=== PATIENT | female | born 1955 | race Caucasian/White ===

== ENCOUNTER → 2017-02-01 | Outpatient (CLI) | payer BC, OTHER ==
[~2017-02-01] MED LIST: INSASP10V; INSU100V6; LVT.15T; MTF500T PO; OMG1KC; POTA99TA13; PROG100C3
--- NOTE | 2017-02-07 13:38 | Diagnostic Imaging Report ---
Bilateral screening mammogram 2D views with tomosynthesis. The current study was also evaluated with a Computer Aided Detection (CAD) system. INDICATION: Screening. No current complaints stated on the questionnaire. COMPARISON: 01/04/16. FINDINGS: The breasts are composed of heterogeneously dense parenchyma which may decrease mammographic sensitivity. Allowing for technique and positional differences, no suspicious change is seen. IMPRESSION: Dense breasts with no definite change. ACR BI-RADS Category 2: Benign findings. Result letter will be mailed to the patient. Note: At least 10% of breast cancer is not imaged by mammography. Dictated by: Dictated on workstation # [id number]
== END ==
LOC: RAD 15:17
PROVIDERS: ATTEND Nurse Practitioner Family
DX: Z12.31 Encounter for screening mammogram for malignant neoplasm of breast (principal)
CPT/HCPCS: 77067

== ENCOUNTER 2017-12-28 16:43 | Inpatient (IN) | payer OTHER ==
[~2017-12-28] VITALS: Ht 170.2 cm; Wt 88.1 kg
--- OUTSIDE RECORDS SUMMARY | 2017-12-28 16:49 | XMS REPORT | Continuity of Care Document ---
Author Author [facility] Address Unknown Phone Unavailable Allergies Active Description Code Type Severity Reaction Onset Reported/Identified Relationship to Patient Clinical Status Yes SULFA SULFA Unknown N/A 03/17/2011 Medications There is no data. Problems Date Dx Coded Attending Type Code Diagnosis Diagnosed By 03/17/2011 Ot 251.0 03/17/2011 Ot 251.2 03/17/2011 Ot V58.67 09/04/2012 JOSE HARRIS MD 244.9 HYPOTHYROIDISM 09/04/2012 JOSE HARRIS MD 250.02 DIABETES MELLITUS TYPE 2 - UNCOMPLICATED, UNCONTROLLED 09/04/2012 JOSE HARRIS MD 796.2 Blood Pressure Isolated Elevated 09/04/2012 JOSE HARRIS MD V07.4 taking female hormones for postmenopausal HRT 09/04/2012 244.9 HYPOTHYROIDISM 09/04/2012 250.02 DIABETES MELLITUS TYPE 2 - UNCOMPLICATED, UNCONTROLLED 09/04/2012 796.2 Blood Pressure Isolated Elevated 09/04/2012 V07.4 taking female hormones for postmenopausal HRT 09/04/2012 ATTILA HAGEN MD 244.9 HYPOTHYROIDISM 09/04/2012 ATTILA HAGEN MD 250.02 DIABETES MELLITUS TYPE 2 - UNCOMPLICATED, UNCONTROLLED 09/04/2012 ATTILA HAGEN MD 796.2 Blood Pressure Isolated Elevated 09/04/2012 ATTILA HAGEN MD V07.4 taking female hormones for postmenopausal HRT 12/17/2012 401.1 ESSENTIAL HYPERTENSION BENIGN 12/17/2012 ATTILA HAGEN MD 401.1 ESSENTIAL HYPERTENSION BENIGN 01/15/2013 ATTILA HAGEN MD 682.2 SKIN ABSCESS OF THE TRUNK - GROIN 12/29/2014 Ot 793.80 01/13/2015 COSENS DO LAMINE L Ot V76.12 01/19/2015 COSENS DO LAMINE L Ot V76.12 01/04/2016 COSENS DO LAMINE L Ot V76.12 OTH SCREEN MAMMO-MALIGN NEOPLASM OF SAMAN 01/05/2016 HUSEYIN JOSEPH Ot Z12.31 ENCNTR SCREEN MAMMOGRAM FOR MALIGNANT NE 01/20/2016 HUSEYIN JOSEPH Ot Z12.31 ENCNTR SCREEN MAMMOGRAM FOR MALIGNANT NE 01/29/2017 LAMINE DENG DO Ot V76.12 OTH SCREEN MAMMO-MALIGN NEOPLASM OF SAMAN 01/29/2017 HUSEYIN JOSEPH Ot Z12.31 ENCNTR SCREEN MAMMOGRAM FOR MALIGNANT NE 02/07/2017 NARDA MUKHERJEE [employer] Ot Z12.31 ENCNTR SCREEN MAMMOGRAM FOR MALIGNANT NE 02/12/2017 NARDA MUKHERJEE [employer] FITTER Ot Z12.31 ENCNTR SCREEN MAMMOGRAM FOR MALIGNANT NE Procedures Code Description [place] [address] A1C (IN-HOUSE) 01/15/2013 48904 CULTURE MRSA 01/17/2013 Results There is no data. Encounters ACCT No. Visit Date/Time Discharge Status Pt. Type Provider Facility Loc./Unit Complaint [id number] 01/15/2013 16:13:00 01/15/2013 23:59:59 CLS Outpatient ATTILA HAGEN MD [id number] 09/04/2012 16:16:00 09/04/2012 23:59:59 CLS Outpatient JOSE HARRIS MD [id number] 12/17/2012 16:11:00 Document Registration [id number] 02/01/2017 15:17:00 02/01/2017 23:59:59 CLS Outpatient NARDA MUKHERJEE APRN [facility] RAD SCREENING [id number] 01/04/2016 13:21:00 01/04/2016 23:59:59 CLS Outpatient HUSEYIN JOSEPH [facility] RAD SCREENING [id number] 12/29/2014 15:09:00 12/29/2014 23:59:59 CLS Outpatient LAMINE DENG DO [facility] RAD SCREENING [id number] 04/03/2011 14:59:00 Document Registration [id number] 03/17/2011 16:46:00 Document Registration
--- NOTE | 2017-12-28 17:13 | ED General ---
General Chief Complaint: General Problems/Pain Stated Complaint: DEHYDRATION Source of Information: Patient Exam Limitations: No Limitations History of Present Illness Date Seen by Provider: Dec 28, 2017 Time Seen by Provider: 17:11 Initial Comments To ER per private vehicle with concerns of dehydration. She has a diabetic with insulin pump. She was feeling fine until about 3 days ago and that she had a sensation of general malaise and weakness, about her. She is a patient of Dr. Deng at [facility] urgent care and Hugh HUNTER nurse practitioner at [facility]. Her blood sugar yesterday was in the 750 range, today just before arrival here was 501 and she turned her insulin pump off because she states "I didn't have my wits about me". Timing/Duration: 2-3 Days Severity: Moderate Associated Systoms: Headaches, Malaise, Nausea/Vomiting Allergies and Home Medications Allergies Uncoded Allergies: SULFA (Adverse Reaction, 03/17/11) Home Medications Metformin Hcl 500 Mg Tablet, 2 PO DAILY, (Reported) Patient Home Medication List Home Medication List Reviewed: Yes Review of Systems Constitutional: see HPI EENTM: see HPI Respiratory: no symptoms reported Cardiovascular: see HPI, chest pain (she has had chest pain but none currently) Genitourinary: no symptoms reported Musculoskeletal: no symptoms reported Skin: no symptoms reported Past Renjnhd-Ivysdj-Pmdakf Hx Patient Social History Recent Foreign Travel: No Contact w/Someone Who Travel: No Physical Exam Vital Signs Vital Signs - First Documented 12/28/17 16:50 Temp 97.8 Pulse 94 Resp 20 B/P (MAP) 125/57 (79) Pulse Ox 97 Capillary Refill : General Appearance: No Apparent Distress, WD/WN Eyes: Bilateral Eye Normal Inspection, Bilateral Eye PERRL, Bilateral Eye EOMI HEENT: PERRL/EOMI, TMs Normal Neck: Full Range of Motion, Normal Inspection Respiratory: Normal Breath Sounds, No Accessory Muscle Use, No Respiratory Distress Cardiovascular: Regular Rate, Rhythm, Normal Peripheral Pulses Gastrointestinal: Normal Bowel Sounds, Non Tender, Soft Extremity: Normal Capillary Refill, Normal Inspection Neurologic/Psychiatric: Alert, Oriented x3 Skin: Normal Color, Warm/Dry Progress/Results/Core Measures Suspected Sepsis SIRS Temperature: Pulse: Respiratory Rate: Laboratory Tests 12/28/17 17:05: White Blood Count 8.4 Blood Pressure / Mean: Laboratory Tests 12/28/17 17:05: Creatinine 2.11H, Platelet Count 330, Total Bilirubin 0.4 Results/Orders Lab Results Laboratory Tests Test 12/28/17 17:00 12/28/17 17:05 12/28/17 17:27 Range/Units Urine Color YELLOW Urine Clarity SLIGHTLY CLOUDY Urine pH 5 5-9 Urine Specific [place] 1.015 L 1.016-1.022 Urine Protein NEGATIVE NEGATIVE Urine Glucose (UA) 4+ H NEGATIVE Urine Ketones 4+ H NEGATIVE Urine Nitrite NEGATIVE NEGATIVE Urine Bilirubin NEGATIVE NEGATIVE Urine Urobilinogen NORMAL NORMAL MG/DL Urine Leukocyte Esterase 3+ H NEGATIVE Urine RBC (Auto) NEGATIVE NEGATIVE Urine RBC NONE /HPF Urine WBC 25-50 H /HPF Urine Squamous Epithelial Cells 10-25 H /HPF Urine Crystals NONE /LPF Urine Bacteria FEW H /HPF Urine Casts NONE /LPF Urine Mucus NEGATIVE /LPF Urine Culture Indicated YES White Blood Count 8.4 4.3-11.0 10^3/uL Red Blood Count 3.69 L 4.35-5.85 10^6/uL Hemoglobin 11.2 L 11.5-16.0 G/DL Hematocrit 33 L 35-52 % Mean Corpuscular Volume 89 80-99 FL Mean Corpuscular Hemoglobin 30 25-34 PG Mean Corpuscular Hemoglobin Concent 34 32-36 G/DL Red Cell Distribution Width 12.3 10.0-14.5 % Platelet Count 330 130-400 10^3/uL Mean Platelet Volume 10.0 7.4-10.4 FL Neutrophils (%) (Auto) 83 H 42-75 % Lymphocytes (%) (Auto) 12 12-44 % Monocytes (%) (Auto) 4 0-12 % Eosinophils (%) (Auto) 0 0-10 % Basophils (%) (Auto) 1 0-10 % Neutrophils # (Auto) 7.0 1.8-7.8 X 10^3 Lymphocytes # (Auto) 1.0 1.0-4.0 X 10^3 Monocytes # (Auto) 0.3 0.0-1.0 X 10^3 Eosinophils # (Auto) 0.0 0.0-0.3 10^3/uL Basophils # (Auto) 0.0 0.0-0.1 10^3/uL Sodium Level 132 L 135-145 MMOL/L Potassium Level 5.4 H 3.6-5.0 MMOL/L Chloride Level 96 L 98-107 MMOL/L Carbon Dioxide Level 12 L 21-32 MMOL/L Anion Gap 24 H 5-14 MMOL/L Blood Urea Nitrogen 38 H 7-18 MG/DL Creatinine 2.11 H 0.60-1.30 MG/DL Estimat Glomerular Filtration Rate 24 BUN/Creatinine Ratio 18 Glucose Level 770 *H 70-105 MG/DL Calcium Level 9.8 8.5-10.1 MG/DL Total Bilirubin 0.4 0.1-1.0 MG/DL Aspartate Amino Transf (AST/SGOT) 17 5-34 U/L Alanine Aminotransferase (ALT/SGPT) 28 0-55 U/L Alkaline Phosphatase 121 40-136 U/L Troponin I < 0.30 <0.30 NG/ML Total Protein 7.0 6.4-8.2 GM/DL Albumin 4.3 3.2-4.5 GM/DL Glucometer > 600 *H 70-110 MG/DL My Orders Orders - SABRINA MORALEZ APRN Cbc With Automated Diff (12/28/17 17:09) Comprehensive Metabolic Panel (12/28/17 17:09) Ua Culture If Indicated (12/28/17 17:09) Iv Heplock-Insert (Order) (12/28/17 17:09) Accucheck Stat ONCE (12/28/17 17:09) Chest Pa/Lat (2 View) (12/28/17 17:09) Ns Iv 1000 Ml (Sodium Chloride 0.9%) (12/28/17 17:15) Insulin (Regular) Human (Humulin R (Per (12/28/17 17:15) Ekg Tracing (12/28/17 17:13) Troponin I (12/28/17 17:13) Urine Culture (12/28/17 17:00) Ceftriaxone Injection (Rocephin Injectio (12/28/17 17:30) Medications Given in ED Current Medications Medications Dose Ordered Sig/Markus Route Start Time Stop Time Status Last Admin Dose Admin Ceftriaxone Sodium 1000 mg/ Sodium Chloride 50 ml @ 100 mls/hr ONCE ONCE IV 12/28/17 17:30 18 17:59 DC 12/28/17 17:30 100 MLS/HR Insulin Human Regular 10 unit ONCE ONCE IV 12/28/17 17:15 6/15/18 17:16 DC 12/28/17 17:30 10 UNIT Vital Signs/I&O 12/28/17 16:50 Temp 97.8 Pulse 94 Resp 20 B/P (MAP) 125/57 (79) Pulse Ox 97 Capillary Refill : Diagnostic Imaging Diagonstic Imaging: Xray Comments NAME: SAIGE [facility]AKAR [facility] REC#: [id number] PT STATUS: REG ER : 1955 PHYSICIAN: SABRINA MORALEZ APRN ADMIT DATE: 12/28/17/ER Draft Date of Exam:12/28/17 CHEST PA/LAT (2 VIEW) INDICATION: Malaise and illness. EXAMINATION: PA and lateral views of the chest were obtained. FINDINGS: Heart size and pulmonary vascularity are within normal limits. There is no pneumothorax or consolidation. Tiny nodular density in the right midlung may be due to prominent vessel or granuloma. There is no evidence of infiltrate, pneumothorax or pleural fluid. Metallic linear densities project over the left shoulder and may reside within a clavicle. IMPRESSION: No acute abnormality is identified. Possible metallic foreign body is seen in region of the left clavicle. Dictated on workstation # [id number] Dict: 12/28/17 175 Trans: 12/28/171756 [facility] [id number] Interpreted by: SHARON CARRASCO MD Electronically signed by: Departure Communication (Admissions) Time/Spoke to Admitting Phy: 18:[address] Fam, agrees to admit. We'll place in the ICU on DKA protocol. I did clarify with the patient in regards to whether or not she sees Hugh HUNTER at the walk-in clinic or at scheduled visits. She states that she sees him during scheduled clinic visits. As such, we'll proceed with admission to [facility]. Impression Primary Impression: DKA (diabetic ketoacidoses) Additional Impression: Urinary tract infection Disposition: ADMITTED INPATIENT Condition: Stable Admissions Decision to Admit Reason: Admit from ER (General) Decision to Admit/Date: Dec 28, 2017 Time/Decision to Admit Time: 17:59 Departure-Patient Inst. Referrals: LAMINE DENG DO (PCP/Family) Primary Care Physician SABRINA MORALEZ APRN Dec 28, 2017 17:13
[2017-12-28 17:15] LABS: BILIRUBIN,URINE NEGATIVE (NEGATIVE); CLARITY,URINE SLIGHTLY CLOUDY; COLOR,URINE YELLOW; GLUCOSE, URINE (UA) 4+ (NEGATIVE); KETONES,URINE 4+ (NEGATIVE); LEUKOCYTE ESTERASE ,URINE 3+ (NEGATIVE); NITRITE,URINE NEGATIVE (NEGATIVE); PH,URINE 5 (5-9); PROTEIN,URINE NEGATIVE (NEGATIVE); UROBILINOGEN,URINE NORMAL (NORMAL)
[2017-12-28] MEDS ORDERED: inSUlin (REGULAR) HUMAN 1 UNIT/0.01 ML (CHARGE PER UNIT) IV ONE (17:15)
[2017-12-28] MEDS ORDERED: NS IV 1000 ML 1,000 ML IV SCH (17:15)
[2017-12-28 17:16] LABS: BASOPHILS % (AUTO) 1 % (0-10); EOSINOPHILS % (AUTO) 0 % (0-10); HEMATOCRIT 33 % (35-52); HEMOGLOBIN 11.2 G/DL (11.5-16.0); LYMPHOCYTES % (AUTO) 12 % (12-44); MEAN CORPUSCULAR HEMOGLOBIN 30 PG (25-34); MEAN CORPUSCULAR HGB CONC 34 G/DL (32-36); MEAN CORPUSCULAR VOLUME 89 FL (80-99); MONOCYTES # (AUTO) 0.3 X 10^3 (0.0-1.0); MONOCYTES % (AUTO) 4 % (0-12); NEUTROPHILS % (AUTO) 83 % (42-75); PLATELET COUNT 330 10^3/uL (130-400); RED BLOOD COUNT 3.69 10^6/uL (4.35-5.85); RED CELL DISTRIBUTION WIDTH 12.3 % (10.0-14.5); WHITE BLOOD COUNT 8.4 10^3/uL (4.3-11.0)
[2017-12-28 17:26] LABS: BACTERIA,URINE FEW /HPF; WBC,URINE 25-50 /HPF
[2017-12-28] MEDS ORDERED: cefTRIAXone INJECTION 1,000 MG in NS (IVPB) 50 ML IV ONE (17:30)
[2017-12-28 17:36] LABS: ALBUMIN 4.3 GM/DL (3.2-4.5); BILIRUBIN,TOTAL 0.4 MG/DL (0.1-1.0); CALCIUM 9.8 MG/DL (8.5-10.1); CREATININE SERUM 2.11 MG/DL (0.60-1.30); POTASSIUM 5.4 MMOL/L (3.6-5.0)
--- NOTE | 2017-12-28 17:57 | Diagnostic Imaging Report ---
INDICATION: Malaise and illness. EXAMINATION: PA and lateral views of the chest were obtained. FINDINGS: Heart size and pulmonary vascularity are within normal limits. There is no pneumothorax or consolidation. Tiny nodular density in the right midlung may be due to prominent vessel or granuloma. There is no evidence of infiltrate, pneumothorax or pleural fluid. Metallic linear densities project over the left shoulder and may reside within a clavicle. IMPRESSION: No acute abnormality is identified. Possible metallic foreign body is seen in region of the left clavicle. Dictated by: Dictated on workstation # [id number]
[2017-12-28] MEDS: inSUlin REGULAR TPN/DRIP ONLY 250 UNITS in NORMAL SALINE 250 ML IV SCH ×3 (19:08→20:06)
[2017-12-28] MEDS: D5 1/2 NS IV 1,000 ML IV SCH (19:12)
[2017-12-28 19:15] VITALS: BP 114/64
[2017-12-28] MEDS ORDERED: ONDANSETRON 4 MG/2 ML (SDV) Z0FRAN IV PRN (19:15)
[2017-12-28] MEDS ORDERED: CATHETER FLUSH 10 ML SYR IV PRN (19:15)
[2017-12-28] MEDS ORDERED: REGULAR inSUlin DRIP 250 UNITS/NS 250 ML IV SCH ×2 (19:15)
[2017-12-28] MEDS ORDERED: LOSA1TAB20 PO (19:37)
[2017-12-28] MEDS ORDERED: MELO15TA39 PO (19:37)
[2017-12-28] MEDS ORDERED: BENZ-36 PO (19:37)
[2017-12-28] MEDS ORDERED: NITR100C PO (19:37)
[2017-12-28] MEDS ORDERED: GABA-486 PO (19:37)
[2017-12-28] MEDS ORDERED: ATOR40TA70 PO (19:37)
[2017-12-28] MEDS ORDERED: DOXY100C2 PO (19:37)
[2017-12-28] MEDS ORDERED: METF10002 PO (19:37)
[2017-12-28] MEDS ORDERED: BUPR300T51 PO (19:37)
[2017-12-28] MEDS ORDERED: LEVO150T6 PO (19:37)
[2017-12-28] MEDS ORDERED: INSU100V16 SQ (19:37)
[2017-12-28] MEDS ORDERED: BUDE10.2 IH (19:37)
[2017-12-28] MEDS ORDERED: ZOLP5TAB7 PO (19:37)
[2017-12-28 19:44] LABS: CALCIUM 9.3 MG/DL (8.5-10.1); CREATININE SERUM 2.01 MG/DL (0.60-1.30); POTASSIUM 6.2 MMOL/L (3.6-5.0)
[2017-12-28] MEDS: DEXTROSE 10% IV SOLUTION 1,000 ML IV SCH (20:04)
[2017-12-28] MEDS: D5 1/2 NS W/KCL 20 MEQ/L 1,000 ML IV SCH ×2 (20:04→23:09)
[2017-12-28] MEDS: 1/2 NS W/KCL 20 MEQ/L 1,000 ML IV SCH ×2 (20:04→23:44)
[2017-12-28] MEDS: 1/2 NS IV SOLUTION 1,000 ML IV SCH ×2 (20:04→23:08)
[2017-12-28 21:00] VITALS: BP 116/59
[2017-12-28 21:19] LABS: CALCIUM 8.7 MG/DL (8.5-10.1); CREATININE SERUM 2.05 MG/DL (0.60-1.30); POTASSIUM 4.7 MMOL/L (3.6-5.0)
[2017-12-28 22:00] VITALS: BP 96/53
[2017-12-28 23:00] VITALS: BP 108/57
[2017-12-29] VITALS (18 sets, daily range): BP systolic 98–140; BP diastolic 46–94
[2017-12-29 01:29] LABS: BASOPHILS % (AUTO) 0 % (0-10); EOSINOPHILS % (AUTO) 0 % (0-10); HEMATOCRIT 28 % (35-52); HEMOGLOBIN 9.6 G/DL (11.5-16.0); LYMPHOCYTES % (AUTO) 23 % (12-44); MEAN CORPUSCULAR HEMOGLOBIN 30 PG (25-34); MEAN CORPUSCULAR HGB CONC 34 G/DL (32-36); MEAN CORPUSCULAR VOLUME 88 FL (80-99); MEAN PLATELET VOLUME 9.1 FL (7.4-10.4); MONOCYTES # (AUTO) 0.7 X 10^3 (0.0-1.0); MONOCYTES % (AUTO) 8 % (0-12); NEUTROPHILS # (AUTO) 5.9 X 10^3 (1.8-7.8); NEUTROPHILS % (AUTO) 69 % (42-75); PLATELET COUNT 285 10^3/uL (130-400); RED BLOOD COUNT 3.16 10^6/uL (4.35-5.85); RED CELL DISTRIBUTION WIDTH 12.1 % (10.0-14.5); WHITE BLOOD COUNT 8.6 10^3/uL (4.3-11.0)
[2017-12-29 01:47] LABS: CALCIUM 8.5 MG/DL (8.5-10.1); CREATININE SERUM 1.95 MG/DL (0.60-1.30); MAGNESIUM 2.2 MG/DL (1.8-2.4); PHOSPHORUS 2.9 MG/DL (2.3-4.7); POTASSIUM 4.5 MMOL/L (3.6-5.0)
[2017-12-29] MEDS: 1/2 NS W/KCL 20 MEQ/L 1,000 ML IV SCH (03:43)
[2017-12-29] MEDS: 1/2 NS IV SOLUTION 1,000 ML IV SCH ×3 (03:44→11:51)
[2017-12-29] MEDS: D5 1/2 NS W/KCL 20 MEQ/L 1,000 ML IV SCH ×3 (03:44→11:51)
[2017-12-29] MEDS: D5 1/2 NS IV 1,000 ML IV SCH (04:53)
[2017-12-29] MEDS: DEXTROSE 10% IV SOLUTION 1,000 ML IV SCH ×2 (05:42→07:41)
[2017-12-29 07:28] LABS: CALCIUM 8.5 MG/DL (8.5-10.1); CREATININE SERUM 1.41 MG/DL (0.60-1.30); POTASSIUM 3.7 MMOL/L (3.6-5.0)
--- NOTE | 2017-12-29 08:11 | Diagnostic Imaging Report ---
Indication: Dyspnea, diabetic ketoacidosis. Discussion: Single portable upright view of the chest was obtained, comparison 12/28/2017. Atelectasis is noted within the lingula. No focal consolidation, pleural fluid, or pneumothorax. Stable normal heart size. Questionable metallic foreign body along the left clavicle is stable. Impression: 1. Stable chest. Dictated by: Dictated on workstation # [id number]
[2017-12-29] MEDS: cefTRIAXone 1 GM/NS 50 ML IVPB IV SCH ×2 (08:41)
[2017-12-29] MEDS ORDERED: INSULIN VIAL ASPART for PUMP 100 UNIT/ML VIAL SQ SCH ×2 (09:45)
[2017-12-29] MEDS ORDERED: BENZONATATE 100 MG (TESSALON) CAPSULE PO PRN (10:45)
[2017-12-29 11:30] LABS: CALCIUM 8.5 MG/DL (8.5-10.1); CREATININE SERUM 1.34 MG/DL (0.60-1.30); POTASSIUM 3.9 MMOL/L (3.6-5.0)
[2017-12-29] MEDS: LEVOTHYROXINE 125 MCG (LEVOTHROID) TABLET PO SCH (11:54)
[2017-12-29] MEDS: GABAPENTIN 100 MG (NEURONTIN) CAP PO SCH ×2 (11:54→20:43)
[2017-12-29] MEDS: ENOXAPARIN 40 MG/0.4 ML (LOVENOX) SYR SQ SCH (11:55)
--- NOTE | 2017-12-29 13:57 | History & Physicial (CHS) ---
HPI History of Present Illness: This is a 62 yo female patient who sees Petty Tan at [facility] for primary care as well as Dr. Lugo for [facility]. Pt has hx of DM - she reports she was diagnosed with DM Type 1 in 1997 at age 42. She has been on an insulin pump. She reports her last A1c was 9.6 last month. Patient previously was seeing Dr. Silvestre but was not able to coordinate her appointments due to work schedule. Pt reports she was seen at her work medical clinic last for cough and because her had been diagnosed with pneumonia. She denied fever but states she had blood test that showed pneumonia and she was started on an antibiotic (Doxycycline) and Symbicort. She reports her BS have been elevated and she states she was feeling out of it and she did not feel like she could work her pump so she stopped her insulin pump. She was seen at the ER and found to be in DKA w/ AG 24 on admission. Source: patient Exam Limitations: no limitations Date seen by provider: Dec 29, 2017 Time Seen by Provider: 08:50 Attending Physician Sukhdev Fam DO PCP Petty Tan, Weston Lal DO - [facility] Consult Date of Admission Dec 28, 2017 at 18:04 Home Medications Home Medications Reviewed patient Home Medication Reconciliation performed by pharmacy medication reconciliations neurodiagnostic technician and/or nursing. Patients Allergies have been reviewed. Allergies Uncoded Allergies: SULFA (Adverse Reaction, Unknown, 12/28/17) IYL-Fzlkuy-Agxlfh Hx Patient Social History Alcohol Use: Denies Use Recreational Drug Use: No Smoking Status: Never a Smoker 2nd Hand Smoke Exposure: No Recent Foreign Travel: No Contact w/other who traveled: No Recent Hopitalizations: No Recent Infectious Disease Expo: No Physical Abuse Screen: No Sexual Abuse: No Immunizations Up To Date Date of Pneumonia Vaccine: Aug 16, 2015 Past Medical History DM Type 1 Hypertension CKD Hyperlipidemia Diabetic Neuropathy Hypothyroidism Chronic UTI OA knees PSH: DEANN/BSO L knee scope umbilical hernia repair Family Medical History Family History: Degenerative disc disease G8 BROTHER, Onset:60 years & older FHx: rheumatoid arthritis G8 BROTHER, Onset:60 years & older Lymphedema 19 FATHER, , Age:88, Onset:60 years & older Review of Systems ([facility]) Constitutional: malaise, weakness Respiratory: cough Cardiovascular: no symptoms reported Gastrointestinal: abdominal pain Genitourinary: other (chronic UTI) Musculoskeletal: joint pain Reviewed Test Results Reviewed Test Results Lab Laboratory Tests 12/28/17 17:00: Urine Color YELLOW, Urine Clarity SLIGHTLY CLOUDY, Urine pH 5, Urine Specific [place] 1.015L, Urine Protein NEGATIVE, Urine Glucose (UA) 4+H, Urine Ketones 4+ H, Urine Nitrite NEGATIVE, Urine Bilirubin NEGATIVE, Urine Urobilinogen NORMAL, Urine Leukocyte Esterase 3+H, Urine RBC (Auto) NEGATIVE, Urine RBC NONE, Urine WBC 25-50H, Urine Squamous Epithelial Cells 10-25H, Urine Crystals NONE, Urine Bacteria FEWH, Urine Casts NONE, Urine Mucus NEGATIVE, Urine Culture Indicated YES 12/28/17 17:05: White Blood Count 8.4, Red Blood Count 3.69L, Hemoglobin 11.2L, Hematocrit 33L, Mean Corpuscular Volume 89, Mean Corpuscular Hemoglobin 30, Mean Corpuscular Hemoglobin Concent 34, Red Cell Distribution Width 12.3, Platelet Count 330, Mean Platelet Volume 10.0, Neutrophils (%) (Auto) 83H, Lymphocytes (%) (Auto) 12 , Monocytes (%) (Auto) 4, Eosinophils (%) (Auto) 0, Basophils (%) (Auto) 1, Neutrophils # (Auto) 7.0, Lymphocytes # (Auto) 1.0, Monocytes # (Auto) 0.3, Eosinophils # (Auto) 0.0, Basophils # (Auto) 0.0, Sodium Level 132L, Potassium Level 5.4H, Chloride Level 96L, Carbon Dioxide Level 12L, Anion Gap 24H, Blood Urea Nitrogen 38H, Creatinine 2.11H, Estimat Glomerular Filtration Rate 24, BUN/ Creatinine Ratio 18, Glucose Level 770*H, Calcium Level 9.8, Total Bilirubin 0.4 , Aspartate Amino Transf (AST/SGOT) 17, Alanine Aminotransferase (ALT/SGPT) 28, Alkaline Phosphatase 121, Troponin I < 0.30, Total Protein 7.0, Albumin 4.3 12/28/17 17:27: Glucometer > 600*H 12/28/17 18:40: Glucometer 583*H 12/28/17 19:01: Glucometer > 600*H 12/28/17 19:20: Sodium Level 132L, Potassium Level 6.2H, Chloride Level 100, Carbon Dioxide Level 7*L, Anion Gap 25H, Blood Urea Nitrogen 37H, Creatinine 2.01H, Estimat Glomerular Filtration Rate 25, BUN/Creatinine Ratio 18, Glucose Level 737*H, Calcium Level 9.3 12/28/17 20:55: Sodium Level 134L, Potassium Level 4.7, Chloride Level 103, Carbon Dioxide Level 7*L, Anion Gap 24H, Blood Urea Nitrogen 39H, Creatinine 2.05H, Estimat Glomerular Filtration Rate 25, BUN/Creatinine Ratio 19, Glucose Level 637*H, Calcium Level 8.7 12/28/17 21:05: Glucometer > 600*H 12/28/17 22:00: Glucometer 559*H 12/28/17 23:02: Glucometer 502*H 12/28/17 23:58: Glucometer 476*H 12/29/17 01:05: Glucometer 418*H 12/29/17 01:21: White Blood Count 8.6, Red Blood Count 3.16L, Hemoglobin 9.6L, Hematocrit 28L, Mean Corpuscular Volume 88, Mean Corpuscular Hemoglobin 30, Mean Corpuscular Hemoglobin Concent 34, Red Cell Distribution Width 12.1, Platelet Count 285, Mean Platelet Volume 9.1, Neutrophils (%) (Auto) 69, Lymphocytes (%) (Auto) 23, Monocytes (%) (Auto) 8, Eosinophils (%) (Auto) 0, Basophils (%) (Auto) 0, Neutrophils # (Auto) 5.9, Lymphocytes # (Auto) 2.0, Monocytes # (Auto) 0.7, Eosinophils # (Auto) 0.0, Basophils # (Auto) 0.0, Sodium Level 136, Potassium Level 4.5, Chloride Level 108H, Carbon Dioxide Level 14L, Anion Gap 14, Blood Urea Nitrogen 39H, Creatinine 1.95H, Estimat Glomerular Filtration Rate 26, BUN/ Creatinine Ratio 20, Glucose Level 379H, Calcium Level 8.5, Phosphorus Level 2.9 , Magnesium Level 2.2 12/29/17 02:01: Glucometer 374H 12/29/17 02:58: Glucometer 368H 12/29/17 04:04: Glucometer 274H 12/29/17 04:50: Glucometer 244H 12/29/17 06:09: Glucometer 175H 12/29/17 06:53: Glucometer 140H 12/29/17 07:05: Sodium Level 139, Potassium Level 3.7, Chloride Level 112H, Carbon Dioxide Level 17L, Anion Gap 10, Blood Urea Nitrogen 33H, Creatinine 1.41H, Estimat Glomerular Filtration Rate 38, BUN/Creatinine Ratio 23, Glucose Level 120H, Calcium Level 8.5 12/29/17 07:32: Glucometer 110 12/29/17 08:16: Glucometer 100 12/29/17 08:47: Glucometer 90 12/29/17 09:11: Glucometer 110 12/29/17 10:05: Glucometer 158H 12/29/17 11:00: Sodium Level 138, Potassium Level 3.9, Chloride Level 108H, Carbon Dioxide Level 18L, Anion Gap 12, Blood Urea Nitrogen 31H, Creatinine 1.34H, Estimat Glomerular Filtration Rate 40, BUN/Creatinine Ratio 23, Glucose Level 177H, Calcium Level 8.5 12/29/17 11:28: Glucometer 162H 12/29/17 11:58: Glucometer 153H Physical Exam-(CHC) Physical Exam Vital Signs VS - Last 72 Hours, by Label 12/28/17 12/28/17 12/28/17 12/28/17 16:50 18:42 19:00 19:15 Temp 97.8 97.8 99.5 Pulse 94 94 93 95 Resp 20 20 16 B/P (MAP) 125/57 (79) 125/57 (79) 114/64 (81) Pulse Ox 97 97 100 O2 Delivery Nasal Cannula O2 Flow Rate 3.00 12/28/17 12/28/17 12/28/17 12/28/17 20:33 21:00 21:50 22:00 Pulse 93 94 Resp 20 25 B/P (MAP) 116/59 (78) 96/53 (67) Pulse Ox 100 99 O2 Delivery Nasal Cannula Nasal Cannula Nasal Cannula Nasal Cannula O2 Flow Rate 3.00 3.00 2.00 3.00 12/28/17 12/28/17 12/29/17 12/29/17 23:00 23:55 00:00 01:00 Temp 99.2 Pulse 94 82 Resp 17 B/P (MAP) 108/57 (74) Pulse Ox 97 96 96 O2 Delivery Nasal Cannula Room Air Room Air O2 Flow Rate 3.00 6/16/18 6/16/18 6/16/18 6/16/18 01:00 02:00 03:00 04:00 Pulse 84 81 85 84 Resp 15 14 16 10 B/P (MAP) 98/46 (63) 118/55 (76) 131/62 (85) 108/58 (75) Pulse Ox 99 96 98 97 O2 Delivery Nasal Cannula Nasal Cannula Nasal Cannula Nasal Cannula O2 Flow Rate 2.00 2.00 2.00 2.00 12/29/17 12/29/17 12/29/17 12/29/17 04:05 04:10 05:00 06:00 Temp 100.2 Pulse 80 77 Resp 16 15 B/P (MAP) 122/59 (80) 127/62 (83) Pulse Ox 97 99 99 O2 Delivery Nasal Cannula Nasal Cannula Nasal Cannula O2 Flow Rate 2.00 2.00 2.00 12/29/17 12/29/17 12/29/17 12/29/17 06:00 07:00 07:00 08:00 Pulse 77 75 75 Resp 15 40 B/P (MAP) 127/62 (83) 115/65 (82) Pulse Ox 99 99 100 O2 Delivery Nasal Cannula Nasal Cannula Nasal Cannula O2 Flow Rate 2.00 2.00 2.00 12/29/17 12/29/17 12/29/17 12/29/17 08:00 08:00 09:00 10:00 Temp 98.5 Pulse 71 78 75 Resp 19 15 11 B/P (MAP) 123/65 (84) 123/75 (91) 122/88 (99) Pulse Ox 99 99 99 O2 Delivery Nasal Cannula Nasal Cannula Nasal Cannula O2 Flow Rate 2.00 2.00 2.00 12/29/17 12/29/17 12/29/17 12/29/17 11:00 11:59 12:00 12:00 Temp 98.0 Pulse 67 75 Resp 14 10 B/P (MAP) 118/59 (78) 121/81 (94) Pulse Ox 99 98 96 O2 Delivery Room Air Room Air Room Air O2 Flow Rate Capillary Refill : Less Than 3 Seconds General Appearance: WD/WN, no apparent distress, other (mild ketone odor to breath) HEENT: PERRL/EOMI Respiratory: lungs clear, normal breath sounds Cardiovascular: regular rate, rhythm, no edema Gastrointestinal: non tender, soft Extremities: non-tender, normal inspection Neurologic/Psychiatric: alert, normal mood/affect, oriented x 3 Skin: normal color, warm/dry Assessment/Plan Assessment/Plan Admission Dx 1. DKA 2. DM Type 1, uncontrolled 3. UTI 4. YOUNG secondary to dehydration Admission Status: Inpatient Order (span 2 midnights) Reason for Inpatient Admission: ICU admission for DKA requiring IV insulin drip Assessment & Plan 1. DKA - admitted to ICU for IV insulin drip (drip currently off due to low BS) - BS now normalized and AG closed - pt will have bring insulin pump and will restart sq insulin via pump then DC insulin drip 2. DM Type 1, uncontrolled - per clinic record pump settings as of 18: 12am 1.35 U/hr 7am 1.25 U/hr I:C is 1:10 active insulin time 4 hours sensitivity factor 60 BS goal 115-130 3. UTI - pt reports hx of chronic UTI for which she has been on Macrobid - urine culture pending; currently treated w/ Rocephin 4. YOUNG secondary to dehydration w/ CKD - Cr on admission 2.11 -->1.41; continue to monitor 5. cough - treated for pneumonia as OP w/ Doxycyline and Symbicort - no evidence of pneumonia on CXR Resume home medications for: HTN Hypothyroidism Diabetic Neuropathy Plan: Transfer to floor after restarting insulin pump and BS remain stable. Clinical Quality Measures DVT/VTE Risk/Contraindication: Risk Factor Score Per Nursin RFS Level Per Nursing on Admit: 3=High Risk Score Comment: SUKHDEV Varghese DO Dec 29, 2017 13:57
[2017-12-29] MEDS ORDERED: ZOLPIDEM 5 MG (AMBIEN) TAB PO SCH (21:00)
[2017-12-29] MEDS ORDERED: ATORVASTATIN 40 MG (LIPITOR) TABLET PO SCH (21:00)
[2017-12-30 00:27] VITALS: BP 126/58
[2017-12-30 04:00] VITALS: BP 172/75
[2017-12-30 04:49] LABS: BASOPHILS % (AUTO) 0 % (0-10); EOSINOPHILS # (AUTO) 0.1 10^3/uL (0.0-0.3); EOSINOPHILS % (AUTO) 2 % (0-10); HEMATOCRIT 31 % (35-52); HEMOGLOBIN 10.6 G/DL (11.5-16.0); LYMPHOCYTES # (AUTO) 2.2 X 10^3 (1.0-4.0); LYMPHOCYTES % (AUTO) 30 % (12-44); MEAN CORPUSCULAR HEMOGLOBIN 30 PG (25-34); MEAN CORPUSCULAR HGB CONC 34 G/DL (32-36); MEAN CORPUSCULAR VOLUME 87 FL (80-99); MEAN PLATELET VOLUME 9.6 FL (7.4-10.4); MONOCYTES # (AUTO) 0.6 X 10^3 (0.0-1.0); MONOCYTES % (AUTO) 9 % (0-12); NEUTROPHILS # (AUTO) 4.2 X 10^3 (1.8-7.8); NEUTROPHILS % (AUTO) 59 % (42-75); PLATELET COUNT 278 10^3/uL (130-400); RED BLOOD COUNT 3.59 10^6/uL (4.35-5.85); WHITE BLOOD COUNT 7.2 10^3/uL (4.3-11.0)
[2017-12-30] MEDS: LEVOTHYROXINE 125 MCG (LEVOTHROID) TABLET PO SCH (05:03)
[2017-12-30 05:16] LABS: BUN/CREATININE RATIO 24; CALCIUM 8.8 MG/DL (8.5-10.1); CARBON DIOXIDE 21 MMOL/L (21-32); CHLORIDE 115 MMOL/L (98-107); CREATININE SERUM 0.88 MG/DL (0.60-1.30); GFR ESTIMATED > 60; GLUCOSE 100 MG/DL (70-105); MAGNESIUM 2.1 MG/DL (1.8-2.4); PHOSPHORUS 3.2 MG/DL (2.3-4.7); POTASSIUM 3.7 MMOL/L (3.6-5.0); SODIUM 144 MMOL/L (135-145)
[2017-12-30] MEDS ORDERED: LEVOTHYROXINE 150 MCG (LEVOTHROID) TAB PO SCH (06:00)
[2017-12-30 08:00] VITALS: BP 160/79
[2017-12-30] MEDS: cefTRIAXone 1 GM/NS 50 ML IVPB IV SCH ×2 (08:49)
[2017-12-30] MEDS: GABAPENTIN 100 MG (NEURONTIN) CAP PO SCH (08:50)
[2017-12-30] MEDS: ENOXAPARIN 40 MG/0.4 ML (LOVENOX) SYR SQ SCH (08:50)
[2017-12-30] MEDS ORDERED: NON-FORMULARY MEDICATION 1 EA EA (Bupropion HCl (Bupropion Xl) 300 MG) PO SCH (09:00)
[2017-12-30] MEDS ORDERED: HYDROCHLOROTHIAZIDE 12.5 MG (HCTZ) CAP PO SCH (09:00)
[2017-12-30] MEDS ORDERED: LOSARTAN 50 MG (COZAAR) TAB PO SCH (09:00)
[2017-12-30] MEDS ORDERED: buPROPion SR 150 MG (WELLBUTRIN SR) TAB PO SCH (09:00)
[2017-12-30] MEDS ORDERED: ACETAMINOPHEN 325 MG TABLET/CAPLET (TYLENOL) ONE (10:07)
[2017-12-30] MEDS ORDERED: ACETAMINOPHEN 325 MG TABLET/CAPLET (TYLENOL) PO ONE (10:15)
[2017-12-30] MEDS ORDERED: INSU100V16 SQ (10:48)
--- NOTE | 2017-12-30 10:53 | Discharge Instructions ---
Discharge [facility] Discharge Medications Changed Medications: Insulin Aspart (Novolog) 100 Unit/1 Ml Susp 0 SQ UD, #1 EACH (Changed from: Removed Units; PER INSULIN PUMP) INSULIN PUMP SETTINGS: 12am 1.35 U/h 7am 1.25 U/h I:C 1:10 Active insulin time - 4hr sensitivity factor 60 BS goal 115-130 Continued Medications: Atorvastatin Calcium (Atorvastatin Calcium) 40 Mg Tablet 40 MG PO HS, TAB Benzonatate (Benzonatate) 100 Mg Capsule 100-200 MG PO Q8H, CAP Bupropion HCl (Bupropion Xl) 300 Mg Tab.er.24h 300 MG PO DAILY, TAB Gabapentin (Gabapentin) 100 Mg Capsule 100 MG PO TID, CAP Levothyroxine Sodium (Levothyroxine Sodium) 150 Mcg Tablet 250 MCG PO DAILY@0600, TAB Losartan/Hydrochlorothiazide (Losartan-Hctz 50-12.5 mg Tab) 1 Each Tablet 1 EACH PO DAILY, TAB Meloxicam (Meloxicam) 15 Mg Tablet 15 MG PO DAILY, TAB Zolpidem Tartrate (Zolpidem Tartrate) 5 Mg Tablet 5 MG PO HS, TAB Discontinued Medications: Budesonide/Formoterol Fumarate (Symbicort 160-4.5 Mcg Inhaler) 10.2 Gm Hfa.aer.ad 2 PUFF IH BID, INHALER Doxycycline Hyclate (Doxycycline Hyclate) 100 Mg Capsule 100 MG PO BID, CAP filled on 12/27/2017 #20 Metformin HCl (Metformin HCl) 1,000 Mg Tablet 2000 MG PO DAILY, TAB Nitrofurantoin Macrocrystal (Nitrofurantoin) 100 Mg Capsule 100 MG PO DAILY, CAP Patient Instructions Goal/Follow Up Appt: [facility] will call to schedule consult w/ Dr. Thacker for DM. Patient Instructions: Hold Metformin until f/u appointment. Continue same pump settings. Activity & Diet Discharge Diet: ADA SUKHDEV Bustamante DO Dec 30, 2017 10:53
--- NOTE | 2017-12-30 11:00 | Discharge Summary ---
Diagnosis/Chief Complaint Date of Admission Dec 28, 2017 at 18:04 Date of Discharge December 30, 2017 Admission Diagnosis Admission Diagnosis 1. DKA 2. DM Type 1, uncontrolled 3. UTI 4. YOUNG secondary to dehydration Discharge Diagnosis 1. DKA - admitted to ICU for IV insulin drip (drip currently off due to low BS) - BS now normalized and AG closed - pt will have bring insulin pump and will restart sq insulin via pump then DC insulin drip 12/30/17 -RESOLVED; resume on sq insulin pump at usual setting. 2. DM Type 1, uncontrolled - per clinic record pump settings as of 10/22/17: 12am 1.35 U/hr 7am 1.25 U/hr I:C is 1:10 active insulin time 4 hours sensitivity factor 60 BS goal 115-130 12/30/17 - BS well controlled on usual pump setting - will schedule consult w/ Dr. Phan for DM as OP - recommend holding Metformin until f/u appointment 3. UTI - pt reports hx of chronic UTI for which she has been on Macrobid - urine culture pending; currently treated w/ Rocephin 12/30/17 - urine culture still pending - tx'd w/ Rocephin, no further treatment necessary 4. YOUNG secondary to dehydration w/ CKD - Cr on admission 2.11 -->1.41; continue to monitor 12/30/17 - RESOLVED 5. cough - treated for pneumonia as OP w/ Doxycyline and Symbicort - no evidence of pneumonia on CXR Resume home medications for: HTN Hypothyroidism Diabetic Neuropathy Plan: DC home Will schedule OP consult w/ Dr. Phan. Chief Complaint/HPI Chief Complaint/HPI This is a 62 yo female patient who sees Petty Tan at [facility] for primary care as well as Dr. Lugo for [facility]. Pt has hx of DM - she reports she was diagnosed with DM Type 1 in 1997 at age 42. She has been on an insulin pump. She reports her last A1c was 9.6 last month. Patient previously was seeing Dr. Silvestre but was not able to coordinate her appointments due to work schedule. Pt reports she was seen at her work medical clinic last for cough and because her had been diagnosed with pneumonia. She denied fever but states she had blood test that showed pneumonia and she was started on an antibiotic (Doxycycline) and Symbicort. She reports her BS have been elevated and she states she was feeling out of it and she did not feel like she could work her pump so she stopped her insulin pump. She was seen at the ER and found to be in DKA w/ AG 24 on admission. Discharge Summary-Simple/Stand Consultations Discharge Physical Examination Allergies: Uncoded Allergies: SULFA (Adverse Reaction, Unknown, 12/28/17) Vitals & I&Os Vital Sign - Last 12Hours Date Time Temp Pulse Resp B/P (MAP) Pulse Ox O2 Delivery O2 Flow Rate FiO2 12/30/17 10:43 98.7 12/30/17 08:00 81 20 160/79 (106) 96 Room Air 12/29/17 12:00 Intake and Output 12/30/17 00:00 Intake Total 2612 ml Output Total 0 ml Balance 2612 ml Hospital Course See final discharge diagnosis. Discharge Instructions to patient/family Please see electronic discharge instructions given to patient. Patient Instructions Goal/Follow Up Appt: [facility] will call to schedule consult w/ Dr. Phan for DM. Patient Instructions: Hold Metformin until f/u appointment. Continue same pump settings. Activity & Diet Discharge Diet: ADA Diet Discharge Medications Reviewed and agree with Discharge Medication list on patient's Discharge Instruction sheet Discharge Medications Continued Medications: Insulin Aspart (Novolog) 100 Unit/1 Ml Susp 0 SQ UD, #1 EACH (Changed from: Removed Units; PER INSULIN PUMP) INSULIN PUMP SETTINGS: 12am 1.35 U/h 7am 1.25 U/h I:C 1:10 Active insulin time - 4hr sensitivity factor 60 BS goal 115-130 Atorvastatin Calcium (Atorvastatin Calcium) 40 Mg Tablet 40 MG PO HS, TAB Benzonatate (Benzonatate) 100 Mg Capsule 100-200 MG PO Q8H, CAP Bupropion HCl (Bupropion Xl) 300 Mg Tab.er.24h 300 MG PO DAILY, TAB Gabapentin (Gabapentin) 100 Mg Capsule 100 MG PO TID, CAP Levothyroxine Sodium (Levothyroxine Sodium) 150 Mcg Tablet 250 MCG PO DAILY@0600, TAB Losartan/Hydrochlorothiazide (Losartan-Hctz 50-12.5 mg Tab) 1 Each Tablet 1 EACH PO DAILY, TAB Meloxicam (Meloxicam) 15 Mg Tablet 15 MG PO DAILY, TAB Zolpidem Tartrate (Zolpidem Tartrate) 5 Mg Tablet 5 MG PO HS, TAB Discontinued Medications: Budesonide/Formoterol Fumarate (Symbicort 160-4.5 Mcg Inhaler) 10.2 Gm Hfa.aer.ad 2 PUFF IH BID, INHALER Doxycycline Hyclate (Doxycycline Hyclate) 100 Mg Capsule 100 MG PO BID, CAP filled on 12/27/2017 #20 Nitrofurantoin Macrocrystal (Nitrofurantoin) 100 Mg Capsule 100 MG PO DAILY, CAP Held Medications: Metformin HCl (Metformin HCl) 1,000 Mg Tablet 2000 MG PO DAILY, TAB hold until f/u appointment Clinical Quality Measures DVT/VTE Risk/Contraindication: Risk Factor Score Per Nursin RFS Level Per Nursing on Admit: 3=High Risk Score Comment: Eric ordered Copy Copies To 1: JUNE PHAN MD, LINDA K DO Dec 30, 2017 11:00
[2017-12-30 11:47] VITALS: BP 160/79
== END 2017-12-30 11:47 | disposition home or self-care (01) | DRG 638 ==
LOC: EDUNIT# 16:43 → ER 16:45 → ICU 18:04 → 4TH 12-29 15:45
PROVIDERS: ADMIT Family Medicine; ATTEND Family Medicine
DX: E10.10 Type 1 diabetes mellitus with ketoacidosis without coma (principal); N17.9 Acute kidney failure, unspecified; E86.0 Dehydration; N39.0 Urinary tract infection, site not specified; E10.40 Type 1 diabetes mellitus with diabetic neuropathy, unspecified; E10.22 Type 1 diabetes mellitus with diabetic chronic kidney disease; I12.9 Hypertensive chronic kidney disease with stage 1 through stage 4 chronic kidney disease, or unspecified chronic kidney disease; N18.9 Chronic kidney disease, unspecified; E78.5 Hyperlipidemia, unspecified; M17.0 Bilateral primary osteoarthritis of knee; R05 Cough; Z79.4 Long term (current) use of insulin
CPT/HCPCS: 36415; 71045; 71046; 80048; 80053; 81000; 82962; 83036; 83735; 84100; 84484; 85025; 87081; 87088; 93005; 96361; 96365; 96375

== ENCOUNTER → 2018-02-18 | Outpatient (CLI) | payer OTHER ==
[~2018-02-18] MED LIST changes: +ATOR40TA70 PO; +BENZ-36 PO; +BUDE10.2 IH; +BUPR300T51 PO; +DOXY100C2 PO; +GABA-486 PO; +INSU100V16 SQ; +LEVO150T6 PO; +LOSA1TAB20 PO; +MELO15TA39 PO; +METF10002 PO; +NITR100C PO; +ZOLP5TAB7 PO
--- NOTE | 2018-02-19 12:08 | Diagnostic Imaging Report ---
INDICATION: Routine screening. Comparison is made with prior exam from 02/03/2017 01/04/2016. 2-D and 3-D bilateral screening mammography was performed with a Computer Aided Detection (CAD) system. FINDINGS: Both breasts are heterogeneously dense, limiting the sensitivity of mammography. No mass or malignant appearing microcalcifications are seen. The axillae are unremarkable. IMPRESSION: No mammographic features suspicious for malignancy are identified. ACR BI-RADS Category 1: Negative. Result letter will be mailed to the patient. Note: At least 10% of breast cancer is not imaged by mammography. Dictated by: Dictated on workstation # [id number]
== END ==
LOC: RAD 13:56
PROVIDERS: ATTEND Nurse Practitioner Family
DX: Z12.31 Encounter for screening mammogram for malignant neoplasm of breast (principal)
CPT/HCPCS: 77067

== ENCOUNTER 2018-09-18 06:27 | Emergency (ER) | payer OTHER ==
[~2018-09-18] VITALS: Ht 170.2 cm; Wt 88.0 kg
[~2018-09-18 06:27] MED LIST changes: +METF-399 PO; -METF10002 PO
[2018-09-18] MEDS ORDERED: NS IV 1000 ML 1,000 ML IV ONE (06:33)
[2018-09-18 07:33] LABS: BASOPHILS % (AUTO) 0 % (0-10); EOSINOPHILS % (AUTO) 0 % (0-10); HEMATOCRIT 35 % (35-52); HEMOGLOBIN 11.3 G/DL (11.5-16.0); LYMPHOCYTES # (AUTO) 1.1 X 10^3 (1.0-4.0); LYMPHOCYTES % (AUTO) 12 % (12-44); MEAN CORPUSCULAR HEMOGLOBIN 29 PG (25-34); MEAN CORPUSCULAR HGB CONC 32 G/DL (32-36); MEAN CORPUSCULAR VOLUME 91 FL (80-99); MEAN PLATELET VOLUME 9.4 FL (7.4-10.4); MONOCYTES # (AUTO) 0.9 X 10^3 (0.0-1.0); MONOCYTES % (AUTO) 10 % (0-12); NEUTROPHILS # (AUTO) 7.2 X 10^3 (1.8-7.8); NEUTROPHILS % (AUTO) 79 % (42-75); PLATELET COUNT 234 10^3/uL (130-400); RED CELL DISTRIBUTION WIDTH 13.6 % (10.0-14.5); WHITE BLOOD COUNT 9.2 10^3/uL (4.3-11.0)
[2018-09-18 07:37] LABS: BILIRUBIN,URINE NEGATIVE (NEGATIVE); COLOR,URINE YELLOW; GLUCOSE, URINE (UA) 3+ (NEGATIVE); KETONES,URINE 1+ (NEGATIVE); LEUKOCYTE ESTERASE ,URINE 3+ (NEGATIVE); NITRITE,URINE NEGATIVE (NEGATIVE); PH,URINE 6 (5-9); PROTEIN,URINE 2+ (NEGATIVE); UROBILINOGEN,URINE NORMAL (NORMAL)
--- NOTE | 2018-09-18 07:43 | ED General ---
General Chief Complaint: Glucose Problems Stated Complaint: DIABETES PROBLEMS,KETO ACIDOSIS Nursing Triage Note: PT TO ROOM 9 CO OF FSBS BEING ELEVATED, PT HAS INSULIN PUMP. DENIES N,V OR DIARRHEA Nursing Sepsis Screen: No Definite Risk Source of Information: Patient, Family Exam Limitations: No Limitations History of Present Illness Date Seen by Provider: Sep 18, 2018 Time Seen by Provider: 07:15 Initial Comments Here with report of ketones in her urine. Patient is diabetic and is on insulin pump basal rate of 1.2. She has noted that she's had elevated blood sugars over the last day or 2 and relates that to family issues and she is having to take care of other people and has neglected herself some. Her significant other has pneumonia currently. Patient denies fever, vomiting, dysuria or diarrhea but was noted to have mild fever on arrival today. Denies cough or sore throat. Timing/Duration: 1-3 Hours Severity: Moderate Associated Systoms: No Chest Pain, No Cough; Fever/Chills; No Nausea/Vomiting, No Shortness of Air, No Weakness Allergies and Home Medications Allergies Uncoded Allergies: SULFA (Adverse Reaction, Unknown, 12/28/17) Home Medications Atorvastatin Calcium 40 Mg Tablet, 40 MG PO HS, (Reported) Benzonatate 100 Mg Capsule, 100-200 MG PO Q8H, (Reported) Bupropion HCl 300 Mg Tab.er.24h, 300 MG PO DAILY, (Reported) Gabapentin 100 Mg Capsule, 100 MG PO TID, (Reported) Insulin Aspart 100 Unit/1 Ml Susp, 0 SQ UD INSULIN PUMP SETTINGS: 12am 1.35 U/h 7am 1.25 U/h I:C 1:10 Active insulin time - 4hr sensitivity factor 60 BS goal 115-130 Prescribed by: SUKHDEV SIN on 12/30/17 1048 Levothyroxine Sodium 150 Mcg Tablet, 250 MCG PO DAILY@0600, (Reported) Losartan/Hydrochlorothiazide 1 Each Tablet, 1 EACH PO DAILY, (Reported) Meloxicam 15 Mg Tablet, 15 MG PO DAILY, (Reported) Zolpidem Tartrate 5 Mg Tablet, 5 MG PO HS, (Reported) Patient Home Medication List Home Medication List Reviewed: Yes Review of Systems Review of Systems Constitutional: see HPI; No chills; fever; No weakness EENTM: no symptoms reported Respiratory: No cough, No short of breath Cardiovascular: no symptoms reported Gastrointestinal: No abdominal pain, No nausea, No vomiting Genitourinary: No dysuria, No pain Musculoskeletal: no symptoms reported Skin: no symptoms reported All Other Systems Reviewed Negative Unless Noted: Yes Past Qtvznok-Imnxap-Tzddwm Hx Past Med/Social Hx: Reviewed Nursing Past Med/Soc Hx Patient Social History Alcohol Use: Denies Use Recreational Drug Use: No Smoking Status: Former Smoker 2nd Hand Smoke Exposure: No Recent Foreign Travel: No Contact w/Someone Who Travel: No Recent Infectious Disease Expo: No Recent Hopitalizations: No Immunizations Up To Date PED Vaccines UTD: No Date of Pneumonia Vaccine: Aug 16, 2015 Seasonal Allergies Seasonal Allergies: No Past Medical History Surgeries: Yes Hysterectomy Respiratory: No Currently Using CPAP: No Currently Using BIPAP: No Cardiac: No Neurological: No Female Reproductive Disorders: 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 Sexually Transmitted Disease: No HIV/AIDS: No Genitourinary: No Gastrointestinal: No Musculoskeletal: No Endocrine: Yes Diabetes, Insulin dep, Hypothyroidsim HEENT: No Loss of Vision: Denies Hearing Impairment: Denies Cancer: No Psychosocial: No Integumentary: No Blood Disorders: No Adverse Reaction/Blood Tranf: No Family Medical History Reviewed Nursing Family Hx Degenerative disc disease G8 BROTHER, Onset:60 years & older FHx: rheumatoid arthritis G8 BROTHER, Onset:60 years & older Lymphedema 19 FATHER, , Age:88, Onset:60 years & older Physical Exam Vital Signs Vital Signs - First Documented 09/18/18 07:10 Temp 100.4 Pulse 88 Resp 18 B/P (MAP) 143/83 (103) Pulse Ox 97 Capillary Refill : Less Than 3 Seconds Height, Weight, BMI Height: 5'7.00" Weight: 194lbs. 4.8oz. [id number]; 29.8 BMI Method:Stated General Appearance: No Apparent Distress, WD/WN HEENT: PERRL/EOMI, TMs Normal, Pharynx Normal Neck: Non Tender, Supple Respiratory: Lungs Clear, Normal Breath Sounds Cardiovascular: Regular Rate, Rhythm, No Murmur Gastrointestinal: Non Tender, Soft Back: Normal Inspection, No CVA Tenderness, No Vertebral Tenderness Extremity: Normal Range of Motion, Non Tender Neurologic/Psychiatric: Alert, Oriented x3 Skin: Normal Color, Warm/Dry Progress/Results/Core Measures Suspected Sepsis Recent Fever Within 48 Hours: No Infection Criteria Present: None New/Unexplained Altered Menta: No Sepsis Screen: No Definite Risk SIRS Temperature:100.4 Pulse: 88 Respiratory Rate: 18 Laboratory Tests 09/18/18 07:25: White Blood Count 9.2 Blood Pressure 143 /83 Mean: 103 Laboratory Tests 09/18/18 07:25: Creatinine 1.06, Platelet Count 234, Total Bilirubin 0.5 Results/Orders Lab Results Laboratory Tests Test 09/18/18 07:22 09/18/18 07:25 09/18/18 07:27 Range/Units Glucometer 251 H 70-110 MG/DL White Blood Count 9.2 4.3-11.0 10^3/uL Red Blood Count 3.89 L 4.35-5.85 10^6/uL Hemoglobin 11.3 L 11.5-16.0 G/DL Hematocrit 35 35-52 % Mean Corpuscular Volume 91 80-99 FL Mean Corpuscular Hemoglobin 29 25-34 PG Mean Corpuscular Hemoglobin Concent 32 32-36 G/DL Red Cell Distribution Width 13.6 10.0-14.5 % Platelet Count 234 130-400 10^3/uL Mean Platelet Volume 9.4 7.4-10.4 FL Neutrophils (%) (Auto) 79 H 42-75 % Lymphocytes (%) (Auto) 12 12-44 % Monocytes (%) (Auto) 10 0-12 % Eosinophils (%) (Auto) 0 0-10 % Basophils (%) (Auto) 0 0-10 % Neutrophils # (Auto) 7.2 1.8-7.8 X 10^3 Lymphocytes # (Auto) 1.1 1.0-4.0 X 10^3 Monocytes # (Auto) 0.9 0.0-1.0 X 10^3 Eosinophils # (Auto) 0.0 0.0-0.3 10^3/uL Basophils # (Auto) 0.0 0.0-0.1 10^3/uL Sodium Level 134 L 135-145 MMOL/L Potassium Level 4.3 3.6-5.0 MMOL/L Chloride Level 103 98-107 MMOL/L Carbon Dioxide Level 23 21-32 MMOL/L Anion Gap 8 5-14 MMOL/L Blood Urea Nitrogen 15 7-18 MG/DL Creatinine 1.06 0.60-1.30 MG/DL Estimat Glomerular Filtration Rate 53 BUN/Creatinine Ratio 14 Glucose Level 251 H 70-105 MG/DL Calcium Level 9.7 8.5-10.1 MG/DL Corrected Calcium 9.7 8.5-10.1 MG/DL Phosphorus Level 3.2 2.3-4.7 MG/DL Magnesium Level 1.6 L 1.8-2.4 MG/DL Total Bilirubin 0.5 0.1-1.0 MG/DL Aspartate Amino Transf (AST/SGOT) 16 5-34 U/L Alanine Aminotransferase (ALT/SGPT) 21 0-55 U/L Alkaline Phosphatase 109 40-136 U/L Total Protein 6.6 6.4-8.2 GM/DL Albumin 4.0 3.2-4.5 GM/DL Urine Color YELLOW Urine Clarity CLOUDY Urine pH 6 5-9 Urine Specific [place] 1.010 L 1.016-1.022 Urine Protein 2+ H NEGATIVE Urine Glucose (UA) 3+ H NEGATIVE Urine Ketones 1+ H NEGATIVE Urine Nitrite NEGATIVE NEGATIVE Urine Bilirubin NEGATIVE NEGATIVE Urine Urobilinogen NORMAL NORMAL MG/DL Urine Leukocyte Esterase 3+ H NEGATIVE Urine RBC (Auto) 2+ H NEGATIVE Urine RBC 5-10 H /HPF Urine WBC 50-100 H /HPF Urine Squamous Epithelial Cells 10-25 H /HPF Urine Crystals NONE /LPF Urine Bacteria FEW H /HPF Urine Casts NONE /LPF Urine Mucus SMALL H /LPF Urine Yeast FEW H /HPF Urine Culture Indicated YES Micro Results Microbiology 09/18/18 Influenza Types A,B Antigen (HANNA) - Final, Complete My Orders Orders - ROSEY VU MD Cbc With Automated Diff (09/18/18 06:33) Comprehensive Metabolic Panel (09/18/18 06:33) Magnesium (09/18/18 06:33) Ua Culture If Indicated (09/18/18 06:33) Phosphorus (09/18/18 06:33) Saline Lock/Iv-Start (09/18/18 06:33) Ns Iv 1000 Ml (Sodium Chloride 0.9%) (09/18/18 06:33) Accucheck Stat ONCE (09/18/18 06:33) Influenza A And B Antigens (09/18/18 07:15) Urine Culture (09/18/18 07:27) Ceftriaxone For Iv Use (Rocephin For I (09/18/18 08:30) Fluconazole Tablet (Ed Only) (Diflucan T (09/18/18 08:18) Ns Iv 1000 Ml (Sodium Chloride 0.9%) (09/18/18 08:18) Medications Given in ED Current Medications Medications Dose Ordered Sig/Markus Route Start Time Stop Time Status Last Admin Dose Admin Ceftriaxone Sodium 1000 mg/ Sterile Water 10 ml @ 200 mls/hr ONCE ONCE IV 09/18/18 08:30 09/18/18 08:32 DC 09/18/18 08:35 200 MLS/HR Sodium Chloride 1,000 ml @ 0 mls/hr Q0M ONCE IV 09/18/18 06:33 09/18/18 06:36 DC 09/18/18 07:29 1,000 MLS/HR Vital Signs/I&O 09/18/18 07:10 Temp 100.4 Pulse 88 Resp 18 B/P (MAP) 143/83 (103) Pulse Ox 97 Capillary Refill : Less Than 3 Seconds Blood Pressure Mean: 103 Point of Care Testing Finger Stick Blood Glucose: 251 Blood Glucose Action Taken: REPORTED TO DR Nolan Note : Progress Note Seen and evaluated. IV, labs, UA, normal saline 1 L bolus ordered. Fingerstick blood sugar ordered. Blood sugar noted to be 251. We will check influenza screen. Monitor patient. Repeat normal saline 1 L bolus. Rocephin 1 g IV given due to complexity of her situation with her diabetes and because urinary tract infection was found. Also noted yeast infection. Diflucan 150 mg by mouth given. Monitor patient. 1000: Patient doing much better. We will continue outpatient treatment of her urinary tract infection. Patient will do insulin corrections on her pump. Follow-up with her doctor instructed. Discharged home with return precautions. Patient verbalize understanding instructions and agreement with plan. Departure Impression Primary Impression: Hyperglycemia Additional Impressions: Urinary tract infection Qualified Codes: N30.00 - Acute cystitis without hematuria Yeast vaginitis Disposition: HOME, SELF-CARE Condition: Improved Departure-Patient Inst. Decision time for Depature: 10:06 Referrals: LAMINE DENG DO (PCP/Family) Primary Care Physician Patient Instructions: Diabetes Type 1, Adult (DC) Add. Discharge Instructions: All discharge instructions reviewed with patient and/or family. Voiced understanding. Is very important that you continue to monitor your sugars and make insulin corrections as prescribed. Drink plenty of fluids. You need to get some rest. You do have a urinary tract infection and we will treat that with antibiotics as discussed. He also had a yeast infection. We did give you a one-time dose of Diflucan which should help but you can sometimes have continuation of yeast infection. If this happens, you may use the [id number] Monistat cream to complete the treatment. Follow-up with your Dr. in a few days for recheck. Return for worse pain, fever, vomiting, weakness, breathing problems or other concerns as needed. Scripts Cephalexin (Cephalexin) 500 Mg Tablet 500 MG PO BID, #12 TAB 0 Refills Prov: ROSEY VU MD 09/18/18 ROSEY VU MD Sep 18, 2018 07:43
[2018-09-18 07:58] LABS: BILIRUBIN,TOTAL 0.5 MG/DL (0.1-1.0); CALCIUM 9.7 MG/DL (8.5-10.1); CREATININE SERUM 1.06 MG/DL (0.60-1.30); MAGNESIUM 1.6 MG/DL (1.8-2.4); PHOSPHORUS 3.2 MG/DL (2.3-4.7); POTASSIUM 4.3 MMOL/L (3.6-5.0); TOTAL PROTEIN 6.6 GM/DL (6.4-8.2)
[2018-09-18 08:01] LABS: BACTERIA,URINE FEW /HPF; CLARITY,URINE CLOUDY; WBC,URINE 50-100 /HPF
[2018-09-18 08:02] LABS: YEAST,URINE FEW /HPF
[2018-09-18] MEDS ORDERED: FLUCONAZOLE 150 MG TABLET (ED ONLY) PO STA (08:18)
[2018-09-18] MEDS ORDERED: NS IV 1000 ML 1,000 ML IV STA (08:18)
[2018-09-18] MEDS ORDERED: cefTRIAXone FOR IV USE 1,000 MG in WATER (STERILE) FOR INJECTION 10 ML IV ONE (08:30)
[2018-09-18] MEDS ORDERED: CEPH500T PO (10:09)
[2018-09-18 10:16] VITALS: BP 140/66
== END 2018-09-18 10:16 | disposition home or self-care (01) ==
LOC: EDUNIT# 06:27 → ER 06:29
DX: E11.65 Type 2 diabetes mellitus with hyperglycemia (principal); N39.0 Urinary tract infection, site not specified; B37.3 Candidiasis of vulva and vagina; E03.9 Hypothyroidism, unspecified; Z88.2 Allergy status to sulfonamides; Z79.4 Long term (current) use of insulin; Z87.891 Personal history of nicotine dependence; Z90.710 Acquired absence of both cervix and uterus
CPT/HCPCS: 36415; 80053; 81000; 82962; 83735; 84100; 85025; 87088; 87804

== ENCOUNTER 2018-10-01 05:54 | Outpatient (CLI) | payer OTHER ==
[~2018-10-01] VITALS: Ht 170.2 cm; Wt 88.0 kg
[~2018-10-01 05:54] MED LIST changes: +CEPH500T PO
[2018-10-02] MEDS ORDERED: METF-399 PO (08:56)
[2018-10-02] MEDS ORDERED: iron PO (08:56)
[2018-10-02] MEDS ORDERED: GABA-490 PO (08:56)
[2018-10-02] MEDS ORDERED: CYAN25006 SL (08:56)
[2018-10-02] MEDS ORDERED: SPIR25TA5 PO (08:56)
[2018-10-02] MEDS ORDERED: INSU100V SQ (08:56)
[2018-10-02] MEDS ORDERED: MAGN500C15 PO (08:56)
== END 2018-10-01 16:00 | disposition home or self-care (01) ==
LOC: PREOP 05:54
PROVIDERS: ATTEND Surgery
DX: Z01.818 Encounter for other preprocedural examination (principal)

== ENCOUNTER 2018-10-08 09:31 | Day surgery (SDC) | payer OTHER ==
[~2018-10-08] VITALS: Ht 170.2 cm; Wt 88.0 kg
[~2018-10-08 09:31] MED LIST changes: +CYAN25006 SL; +GABA-490 PO; +INSU100V SQ; +MAGN500C15 PO; +SPIR25TA5 PO; +iron PO
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
--- OUTSIDE RECORDS SUMMARY | 2018-10-08 09:36 | XMS REPORT ---
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.4 Active 715804758 ALLERGIES No Information ENCOUNTERS Encounter Location Date Diagnosis [place] [address] 359[address]- 9812 Jul, [place] [address] 84591- 0252 May, Type 2 diabetes mellitus without complications E11.9 and Neuropathy due to secondary diabetes E13.40 [place] [address] [place] [id number] [place] [address] 61043- 9412 May, [place] [id number] [place] [address] 03677- 0712 Apr, Type 2 diabetes mellitus without complications E11.9 ; Localized edema R60.0 and Neuropathy due to secondary diabetes E13.40 [place] [address] [place] [id number] [place] [address] 66832- 7567 Apr, Other chronic pain G89.29 ; Pain in left knee M25.562 and Pain in right knee M25.561 [facility] [id number] [place] [address] 87106- 4207 Jan, [place] [address] 08029- 3300 Jan, [place] [address], [place] [address]- 9725 Dec, [facility] [id number] [place] [address] 56835- 2211 Dec, Other chronic pain G89.29 ; Pain in left knee M25.562 ; Pain in right knee M25.561 and Bilateral leg edema R60.0 [place] [id number] [place] [address] 24439- 5952 Dec, Type 2 diabetes mellitus without complications E11.9 [place] [id number], [place] [address]- 0025 Dec, [place] [id number] [place] [address] 36587- 0682 Dec, Type 2 diabetes mellitus without complications E11.9 ; skilled nursing 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.4 ; Other chronic pain G89.29 and Prophylactic antibiotic Z79.2 [place] [address], [place] [address]- 4561 November, Type 2 diabetes mellitus without complications E11.9 ; emt intermediate 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.4 ; Pain in left knee M25.562 and Pain in right knee M25.561 [place] [address], [place] [address]- 0101 November, [place] [address] [address]- 6880 November, [facility] [address], [place] [address]- 8437 Oct, [place] [address] [address]- 1728 Oct, [place] [address] [address]- 3769 Oct, Type 2 diabetes mellitus without complications E11.9 [place] [address] [address]- 2995 Sep, [facility] [address] 1093 Aug, Other chronic pain G89.29 ; Pain in left knee M25.562 and Pain in right knee M25.561 [facility] [address] [address]- 2226 Aug, [facility] [id number] 8676 Aug, [facility] [address], [place] [address]- 9317 Aug, Type 2 diabetes mellitus without complications E11.9 ; skilled nursing 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.4 ; Other chronic pain G89.29 ; Pain in left knee M25.562 and Pain in right knee M25.561 [facility] [address], [place] [address]- 8922 Dec, [facility] [address], [place] [address]- 2107 Oct, [facility] [address] [address]- 0762 Oct, [facility] [address], [place] [address]- 2873 November, [facility] [address], [place] [address]- 6280 November, [facility] [address], [place] [address]- 8948 November, [facility] [address] 0609 November, [facility] [address] 5426 November, [facility] [address] 5225 Aug, [facility] [place] [facility] [address] [id number] [place] [address]- 6121 Aug, [facility] [place] [facility] [address] [id number] [place] [address]- 1795 Aug, [facility] [place] [facility] [address] [id number] [place] [address]- 9815 Aug, [facility] [place] [facility] [address] [id number] [place] [address]- 9469 Jul, [facility] [place] [facility] [address] [id number] [place] [address]- 6309 Jul, [facility] [place] [facility] [address] [id number] [place] [address]- 5221 Jun, [facility] [place] [facility] [address] [id number] [place] [address]- 5284 Jun, [facility] [place] [facility] [address] [id number] [place] [address]- 0811 Apr, [facility] [place] [facility] [address] [id number] [place] [address]- 1024 Apr, [facility] [place] [facility] [address] [id number] [place] [address]- 7374 Mar, [facility] [place] [facility] [address] [id number] [place] [address]- 5997 Mar, [facility] [place] [facility] [address] [id number] [place] [address]- 4512 Mar, [facility] [place] [facility] [address] [id number] [place] [address]- 2668 Feb, [facility] [place] [facility] [address] [id number] [place] [address]- 1332 Feb, [facility] [place] [facility] [address] [id number] [place] 1945 Jan, [facility] [place] [facility] [address] [id number], [place] [address]- 0580 Jan, [facility] [address], [place] [address]- 0326 Jan, [facility] [address], [place] [address]- 1874 Jan, [facility] [address], [place] [address]- 3479 Jan, [facility] [address], [place] [address]- 1741 Jan, [facility] [address], [place] [address]- 3808 Dec, [facility] [address], [place] [address]- 2791 Dec, [facility] [address], [place] [address]- 2832 Dec, [facility] [address], [place] [address]- 6324 Dec, [facility] [address], [place] [address]- 3218 Dec, [facility] [address], [place] [address]- 7657 Dec, [facility] [address] [address]- 7802 November, [facility] [address], [place] [address]- 0672 November, [facility] [address], [place] [address]- 5779 Sep, [facility] [address], [place] [address]- 5807 Aug, IMMUNIZATIONS No Known Immunizations SOCIAL HISTORY Never Assessed REASON FOR VISIT referral PLAN OF CARE VITAL SIGNS MEDICATIONS Unknown Medications RESULTS No Results PROCEDURES No Known procedures [...] on left knee 2012 Surgical History ketoacidosis 2018 Hospitalization History surgeries Hospitalization History diabetes 04/1998 Hospitalization History dehydration and ketoacidosis 12/2017
--- OUTSIDE RECORDS SUMMARY | 2018-10-08 09:36 | XMS REPORT ---
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 426777195 ALLERGIES No Information ENCOUNTERS Encounter Location Date Diagnosis [place] [id number] [place] [address] 83560- 5922 Jan, [place] [id number] [place] [address] 62835- 5034 Jan, [place] [id number] [place] [address] 58429- 3335 Dec, [place] [address] 22979- 9886 Dec, Other chronic pain G89.29 ; Pain in left knee M25.562 ; Pain in right knee M25.561 and Bilateral leg edema R60.0 [place] [id number] [place] [address] 84712- 5562 Dec, Type 2 diabetes mellitus without complications E11.9 [place] [id number] [place] [address] 32396- 6541 Dec, [place] [id number] [place] [address] 87318- 8190 Dec, Type 2 diabetes mellitus without complications E11.9 ; 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 ; Other chronic pain G89.29 and Prophylactic antibiotic Z79.2 [place] [address] [address]- 9604 November, Type 2 diabetes mellitus without complications E11.9 ; 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 ; Pain in left knee M25.562 and Pain in right knee M25.561 [facility] [address], [place] [address]- 9899 November, [facility] [id number] [place] [address] 70979- 0078 November, [facility] [id number] [address]- 8961 Oct, [facility] [id number] [place] [address] 42415- 9082 Oct, [facility] [address] [address]- 0092 Oct, Type 2 diabetes mellitus without complications E11.9 [facility] [address], [place] [address]- 1679 Sep, [facility] [address] [address]- 8963 Aug, Other chronic pain G89.29 ; Pain in left knee M25.562 and Pain in right knee M25.561 [facility] [address], [place] [address]- 3806 Aug, [facility] [address], [place] [address]- 9852 Aug, [facility] [id number] [address]- 8079 Aug, Type 2 diabetes mellitus without complications E11.9 ; 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 ; Other chronic pain G89.29 ; Pain in left knee M25.562 and Pain in right knee M25.561 [facility] [address] [address]- 2951 Dec, [facility] [address] [id number] [place] [address]- 0770 Oct, [facility] [place] [facility] [address] [id number] [place] [address]- 3246 Oct, [facility] [place] [facility] [address] [id number] [place] [address]- 0025 November, [facility] [place] [facility] [address] [id number] [place] [address]- 5426 November, [facility] [place] [facility] [address] [id number] [place] [address]- 0086 November, [facility] [place] [facility] [address] [id number] [place] [address]- 5881 November, [facility] [place] [facility] [address] [id number] [place] [address]- 3087 November, [facility] [place] [facility] [address] [id number] [place] [address]- 3509 Aug, [facility] [place] [facility] [address] [id number] [place] [address]- 5746 Aug, [facility] [place] [facility] [address] [id number] [place] [address]- 6483 Aug, [facility] [place] [facility] [address] [id number] [place] [address]- 4741 Aug, [facility] [place] [facility] [address] [id number] [place] [address]- 3362 Jul, [facility] [place] [facility] [address] [id number] [place] 7600 Jul, [facility] [place] [facility] [address] [id number] [place] [address]- 4959 Jun, [facility] [place] [facility] [address] [id number] [place] [address]- 8418 Jun, [facility] [place] [facility] [address] [id number] [place] [address]- 0181 Apr, [facility] [address] [id number] [place] [address]- 3618 29 Apr, 2013 [facility] [place] [facility] [address] [id number] [place] [address]- 3671 Mar, [facility] [place] [facility] [address] [id number] [place] [address]- 2108 27 Mar, 2013 [facility] [place] [facility] [address] [id number] [place] [address]- 5282 17 Mar, 2013 [facility] [place] [facility] [address] [id number] [place] [address] Feb, [facility] [place] [facility] [address] [id number] [place] [address] Feb, [facility] [address] [id number] [place] [address] Jan, [facility] [place] [facility] [address] [id number] [place] [address] Jan, [facility] [place] [facility] [address] [id number] [place] [address] Jan, [facility] [place] [facility] [address] [id number] [place] [address] Jan, [facility] [place] [facility] [address] [id number] [place] [address] Jan, [facility] [place] [facility] [address] [id number] [place] [address] Jan, [facility] [place] [facility] [address] [id number] [place] [address] Dec, [facility] [place] [facility] [address] [id number] [place] [address] Dec, [facility] [place] [facility] [address] [id number] [place] [address] Dec, [facility] [address] [id number] [address] Dec, [facility] [address] [id number] [address] Dec, [facility] [address] [id number] [address] Dec, [facility] [address] [id number], [place] [address] November, [facility] [id number] [address] November, [facility] [address] [id number] [address] Sep, [facility] [address] [id number], [place] [address] Aug, IMMUNIZATIONS No Known Immunizations SOCIAL HISTORY Never Assessed REASON FOR VISIT upload with no changes PLAN OF CARE VITAL SIGNS MEDICATIONS Unknown [...]
--- OUTSIDE RECORDS SUMMARY | 2018-10-08 09:36 | XMS REPORT ---
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 915234880 ALLERGIES No Information ENCOUNTERS Encounter Location Date Diagnosis [place] [id number] [place] [address] 75912- 0982 Jan, [place] [id number] [place] [address] 39072- 7581 Jan, [place] [id number] [place] [address] 38164- 9219 Dec, [place] [address] [address]- [address]484 Dec, Other chronic pain G89.29 ; Pain in left knee M25.562 ; Pain in right knee M25.561 and Bilateral leg edema R60.0 [place] [id number] [place] [address] 85401- 0837 Dec, Type 2 diabetes mellitus without complications E11.9 [place] [id number] [place] [address] 38288- 0286 Dec, [place] [id number] [place] [address] 55317- 3165 Dec, Type 2 diabetes mellitus without complications E11.9 ; 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 ; Other chronic pain G89.29 and Prophylactic antibiotic Z79.2 [place] [address] [address] November, Type 2 diabetes mellitus without complications E11.9 ; 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 ; Pain in left knee M25.562 and Pain in right knee M25.561 [facility] [address] [address] 5[address] November, [facility] [id number] [place] [address] 02283- 7970 November, [facility] [id number] [address]- 1287 Oct, [facility] [id number] [place] [address] 84066- 8681 Oct, [facility] [address] [address] 7819 Oct, Type 2 diabetes mellitus without complications E11.9 [facility] [address] [address] 2727 Sep, [facility] [address] [address] 9039 Aug, Other chronic pain G89.29 ; Pain in left knee M25.562 and Pain in right knee M25.561 [facility] [address] [address] 6006 Aug, [facility] [address] [address]- 4262 Aug, [facility] [id number] [address] 4817 Aug, Type 2 diabetes mellitus without complications E11.9 ; 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 ; Other chronic pain G89.29 ; Pain in left knee M25.562 and Pain in right knee M25.561 [facility] [address] [address] 1698 Dec, [facility] [address] [id number] [place] [address] 1846 Oct, [facility] [place] [facility] [address] [id number] [place] [address]- 1218 Oct, [facility] [place] [facility] [address] [id number] [place] [address]- 7652 November, [facility] [place] [facility] [address] [id number] [place] [address]- 3551 November, [facility] [place] [facility] [address] [id number] [place] [address]- 8926 November, [facility] [place] [facility] [address] [id number] [place] [address]- 6550 November, [facility] [place] [facility] [address] [id number] [place] [address]- 9504 November, [facility] [place] [facility] [address] [id number] [place] [address]- 0635 Aug, [facility] [place] [facility] [address] [id number] [place] [address]- 8300 Aug, [facility] [place] [facility] [address] [id number] [place] [address]- 9038 Aug, [facility] [place] [facility] [address] [id number] [place] [address]- 4699 Aug, [facility] [place] [facility] [address] [id number] [place] [address]- 6062 Jul, [facility] [place] [facility] [address] [id number] [place] [address] Jul, [facility] [place] [facility] [address] [id number] [place] [address]- 5103 Jun, [facility] [place] [facility] [address] [id number] [place] [address]- 5761 Jun, [facility] [place] [facility] [address] [id number] [place] [address]- 2648 Apr, [facility] [address] [id number] [place] [address]- 1392 29 Apr, 2013 [facility] [place] [facility] [address] [id number] [place] [address]- 5736 Mar, [facility] [place] [facility] [address] [id number] [place] [address]- 9199 27 Mar, 2013 [facility] [place] [facility] [address] [id number] [place] [address]- 2744 17 Mar, 2013 [facility] [place] [facility] [address] [id number] [place] [address]- 7203 Feb, [facility] [place] [facility] [address] [id number] [place] [address]- 6438 Feb, [facility] [address] [id number] [place] [address]- 4569 Jan, [facility] [place] [facility] [address] [id number] [place] [address]- 2667 Jan, [facility] [place] [facility] [address] [id number] [place] [address]- 7761 Jan, [facility] [place] [facility] [address] [id number] [place] [address]- 6267 Jan, [facility] [place] [facility] [address] [id number] [place] [address]- 6925 Jan, [facility] [place] [facility] [address] [id number] [place] [address]- 2336 Jan, [facility] [place] [facility] [address] [id number] [place] [address]- 2280 Dec, [facility] [place] [facility] [address] [id number] [place] [address]- 6782 Dec, [facility] [place] [facility] [address] [id number] [place] [address]- 6702 Dec, [facility] [id number] [address]- 0615 Dec, [facility] [id number] [address]- 8161 Dec, [facility] [id number] [address]- 6728 Dec, [facility] [id number] [address]- 6885 November, [facility] [address] [address]- 0525 November, [facility] [id number] [address]- 6289 Sep, [facility] [id number] [address]- 7760 Aug, IMMUNIZATIONS No Known Immunizations SOCIAL HISTORY Never Assessed REASON FOR VISIT [employer] upload info PLAN OF CARE VITAL SIGNS MEDICATIONS Unknown [...]
--- OUTSIDE RECORDS SUMMARY | 2018-10-08 09:36 | XMS REPORT ---
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 Active 6730043 Problem Type 2 diabetes mellitus without complications E11.9 Active 444780850 Problem Other chronic pain G89.29 Active 61838908 Problem [facility] 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.4 Active 479723398 ALLERGIES Substance Reaction Event Type Date Status Sulfa Drugs bottoms out blood sugar Non Drug Allergy Apr, Active ENCOUNTERS Encounter Location Date Diagnosis [place] [id number] [place] [address] 55085- 1763 May, [facility] [id number] [place] [address] 45468- 3548 Apr, Type 2 diabetes mellitus without complications E11.9 ; Localized edema R60.0 and Neuropathy due to secondary diabetes E13.40 [place] [id number] [place] [address] 26089- 6750 Apr, Other chronic pain G89.29 ; Pain in left knee M25.562 and Pain in right knee M25.561 [facility] [id number] [place] [address] 25493- 7858 Jan, [facility] [id number] [place] [address] 41737- 2253 Jan, [facility] [id number] [place] [address] 58680- 6029 Dec, [facility] [id number] [place] [address] 66151- 2505 Dec, Other chronic pain G89.29 ; Pain in left knee M25.562 ; Pain in right knee M25.561 and Bilateral leg edema R60.0 [facility] [id number] [place] [address] 94213- 1471 Dec, Type 2 diabetes mellitus without complications E11.9 [facility] [id number], [place] [address]- 7409 Dec, [facility] [id number] [place] [address] 67525- 0748 Dec, Type 2 diabetes mellitus without complications E11.9 ; 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 ; Other chronic pain G89.29 and Prophylactic antibiotic Z79.2 [facility] [id number] [place] [address] 71513- 0682 November, Type 2 diabetes mellitus without complications E11.9 ; 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 ; Pain in left knee M25.562 and Pain in right knee M25.561 [facility] [id number] [place] [address] 86927- 8562 November, [facility] [id number] [place] [address] 60784- 8714 November, [facility] [id number] [place] [address] 26712- 9717 Oct, [facility] [address], [place] [address]- 3443 Oct, [facility] [id number] [place] [address] 38189- 6003 Oct, Type 2 diabetes mellitus without complications E11.9 [facility] [id number] [address]- 6478 Sep, [facility] [address], [place] [address]- 3740 Aug, Other chronic pain G89.29 ; Pain in left knee M25.562 and Pain in right knee M25.561 [facility] [id number], [place] [address]- 4397 Aug, [facility] [id number] [place] [address]- 8126 Aug, [facility] [address], [place] [address]- 5103 Aug, Type 2 diabetes mellitus without complications E11.9 ; [facility] 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.4 ; Other chronic pain G89.29 ; Pain in left knee M25.562 and Pain in right knee M25.561 [facility] [id number] [place] [address] 67643- 4342 Dec, [facility] [id number] [address]- 4483 Oct, [facility] [id number] [place] [address] 33480- 6367 Oct, [facility] [address], [place] [address]- 5017 November, [facility] [address], [place] [address]- 2171 November, [facility] [address], [place] [address]- 7807 November, [facility] [address], [place] [address]- 6046 November, [facility] [address], [place] [address]- 8076 November, [facility] [address] 1878 Aug, [facility] [address] 5276 Aug, [facility] [address] 9767 Aug, [facility] [place] [facility] [address] [id number] [place] [address]- 8255 Aug, [facility] [place] [facility] [address] [id number] [place] [address]- 8717 Jul, [facility] [place] [facility] [address] [id number] [place] [address]- 2783 Jul, [facility] [place] [facility] [address] [id number] [place] [address]- 2156 Jun, [facility] [place] [facility] [address] [id number] [place] [address]- 2909 Jun, [facility] [place] [facility] [address] [id number] [place] [address]- 3438 Apr, [facility] [place] [facility] [address] [id number] [place] [address]- 9331 Apr, [facility] [place] [facility] [address] [id number] [place] [address]- 1443 Mar, [facility] [place] [facility] [address] [id number] [place] [address]- 7928 Mar, [facility] [place] [facility] [address] [id number] [place] [address]- 7716 Mar, [facility] [place] [facility] [address] [id number] [place] [address]- 6067 Feb, [facility] [place] [facility] [address] [id number], [place] [address]- 5736 Feb, [facility] [place] [facility] [address] [id number] [place] [address]- 4080 Jan, [facility] [place] [facility] [address] [id number], [place] [address]- 3223 Jan, [facility] [place] [facility] [address] [id number] [place] [address]- 8749 Jan, [facility] [place] [facility] [id number], [place] [address]- 6176 Jan, [facility] [id number], [place] [address]- 0638 Jan, [facility] [id number], [place] [address]- 6993 Jan, [facility] [address], [place] [address]- 6582 Dec, [facility] [address], [place] [address]- 4885 Dec, [facility] [address], [place] [address]- 7457 Dec, [facility] [address], [place] [address]- 2502 Dec, [facility] [address], [place] [address]- 2950 Dec, [facility] [address], [place] [address]- 6819 Dec, [facility] [id number], [place] [address]- 0341 November, [facility] [id number], [place] [address]- 2903 November, [facility] [id number], [place] [address]- 8537 Sep, [facility] [id number], [place] [address]- 1292 Aug, IMMUNIZATIONS No Known Immunizations SOCIAL HISTORY Never Assessed REASON FOR VISIT Diabetes - patience [facility] PLAN OF CARE Activity Details Follow Up 4 Weeks Reason:dm2 VITAL SIGNS Height 67 in 2018-05-06 Weight 188.2 lbs 2018-05-06 Temperature 98.1 degrees Fahrenheit 2018-05-06 Heart Rate 80 bpm 2018-05-06 Respiratory Rate 20 2018-05-06 Oximetry 94 % 2018-05-06 BMI 29.47 kg/m2 2018-05-06 Blood pressure systolic 132 mmHg 2018-05-06 Blood pressure diastolic 68 mmHg 2018-05-06 MEDICATIONS Medication Instructions Dosage Frequency Start Date End Date Duration Status Levothyroxine Sodium 50 mcg Orally Once a day 1 tablet on an empty stomach in the morning 24h November, Active Spironolactone 25 MG Orally Twice a day 1 tablet 12h Active Vitamin B-12 2500 MCG Active Black Cohosh 540 MG Orally Twice a day 2 capsules 12h Active Humalog 100 UNIT/ML Subcutaneous Once a day inject 70 units 24h Aug, Active Iron 325 (65 Fe) MG Orally Once a day 1 tablet 24h Active BuPROPion HCl ER (XL) 300 MG Orally Once a day 1 tablet in the morning 24h Active Glucosamine Chondroitin Triple - Orally Once a day 2 tablets 24h Active Losartan Potassium 25 MG Orally Once a day 1 tablet 24h Active Aspirin 81 81 MG Orally Once a day 1 tablet 24h Active Metformin HCl 1000 MG Orally Twice a day 1 tablet with meals 12h Active Atorvastatin Calcium 40 MG Orally Once a day 1 tablet 24h Active Zolpidem Tartrate 5 mg Orally Once a day 1 tablet at bedtime 24h Active Naproxen 500 MG Orally Twice a day 1 tablet 12h Not-Taking Fish Oil-Krill Oil - Orally Once a day 1200-360mg takes 2 capsules 24h Active Levothyroxine Sodium 200 MCG Orally Once a day 1 tablet on an empty stomach in the morning 24h Active Contour Next Test - In Vitro 2 times a day as directed 12h 30 days Active Gabapentin 800 MG Orally 3 times a day 1 tablet 8h Active Test strips 1 test blood sugar 8h November, Active Nitrofurantoin Macrocrystal 100 MG Orally Once a day 1 capsule with food or milk 24h Not-Taking RESULTS Name Result Date Reference Range A1C (IN HOUSE) 2018-05-06 A1C IN HOUSE 9.6 4.3 - 5.6 % Previous A1c 9.6 Lot [id number] Exp date 09/2019 PROCEDURES Procedure Date Ordered Result Body Site GLYCATED HEMOGLOBIN TEST May 06, 2018 INSTRUCTIONS MEDICATIONS ADMINISTERED No Known Medications MEDICAL [...]
--- OUTSIDE RECORDS SUMMARY | 2018-10-08 09:36 | XMS REPORT ---
Author Author KAYLEIGH HUNTER Organization [facility] Address [address] [place] [address] Care Team Providers Care Line Maintenance Technician Name Role Phone KAYLEIGH HUNTER Unavailable PROBLEMS Type Condition ICD9-CM Code [id number] Code Onset Dates Condition Status SNOMED Code Problem Type 2 diabetes mellitus without complications E11.9 Active 917646084 Problem Other chronic pain G89.29 Active 43995997 Problem [employer] 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.4 Active 622111382 ALLERGIES Substance Reaction Event Type Date Status Sulfa Drugs bottoms out blood sugar Non Drug Allergy November, Active ENCOUNTERS Encounter Location Date Diagnosis [place] [address] [address] Jan, [place] [address] [place] [id number] [place] [address]- [address] Jan, [place] [address] [address] Dec, [place] [address] [place] [id number] [place] [address]- 1324 Dec, Other chronic pain G89.29 ; Pain in left knee M25.562 ; Pain in right knee M25.561 and Bilateral leg edema R60.0 [place] [address] [place] [id number] [place] [address]33- 0855 Dec, Type 2 diabetes mellitus without complications E11.9 [place] [address] [address]- [address] Dec, [place] [address] [place] [id number] [place] [address]- 9313 Dec, Type 2 diabetes mellitus without complications E11.9 ; [employer] 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.4 ; Other chronic pain G89.29 and Prophylactic antibiotic Z79.2 [facility] [address] [address] November, Type 2 diabetes mellitus without complications E11.9 ; [facility] 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.4 ; Pain in left knee M25.562 and Pain in right knee M25.561 [facility] [address] [address] November, [facility] [address] [place] [address] [id number] [address] November, [facility] [address] [place] [address]- 2783 Oct, [facility] [address] [place] [address]81- 6487 Oct, [facility] [address] [place] [id number] [place] [address]- 4551 Oct, Type 2 diabetes mellitus without complications E11.9 [facility] [address] [address] Sep, [facility] [address] [place] [address]- 5629 Aug, Other chronic pain G89.29 ; Pain in left knee M25.562 and Pain in right knee M25.561 [facility] [address], [place] [address] 97[address] Aug, [facility] [address] [address] 12[address] Aug, [facility] [address] [address] 39[address] Aug, Type 2 diabetes mellitus without complications E11.9 ; [facility] 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.4 ; Other chronic pain G89.29 ; Pain in left knee M25.562 and Pain in right knee M25.561 [facility] [address] [place] [id number] [address] 269[address] Dec, [facility] [address] [id number] [place] [address] 14 Oct, 2014 [facility] [address] [id number] [place] [address]- 2511 Oct, [facility] [address] [id number] [place] [address]- 2212 November, [facility] [address] [id number] [place] [address]- 6779 November, [facility] [address] [id number] [place] [address] 3191 November, [facility] [address] [id number] [place] [address]- 6622 November, [facility] [address] [id number] [place] [address]- 6541 November, [facility] [address] [id number] [place] [address]- 7538 Aug, [facility] [address] [id number] [place] [address]- 7578 Aug, [facility] [address] [id number] [place] [address]- 4[address] Aug, [facility] [place] [facility] [address] [id number] [place] [address]- 6582 Aug, [facility] [address] [id number] [place] [address]- 7418 Jul, [facility] [place] [facility] [address] [id number] [place] [address] Jul, [facility] [place] [facility] [address] [id number] [place] [address]- 4921 Jun, [facility] [place] [facility] [address] [id number] [place] [address] Jun, [facility] [place] [facility] [address] [id number] [place] [address]- 6479 Apr, [facility] [place] [facility] [address] [id number] [place] [address]- 2224 Apr, [facility] [place] [facility] [address] [id number] [place] [address]- 3025 Mar, [facility] [place] [facility] [address] [id number] [place] [address]- 1838 Mar, [facility] [place] [facility] [address] [id number] [place] [address]- 5927 Mar, [facility] [place] [facility] [address] [id number] [place] [address]- 1791 Feb, [facility] [place] [facility] [address] [id number] [place] [address]- 8543 Feb, [facility] [place] [facility] [address] [id number] [place] [address]- 7605 Jan, [facility] [place] [facility] [address] [id number] [place] [address]- 5506 Jan, [facility] [place] [facility] [address] [id number] [place] [address]- 9334 Jan, [facility] [place] [facility] [address] [id number] [address]- 6[address] Jan, [facility] [place] [facility] [address] [id number], [place] [address]- 8247 Jan, [facility] [place] [facility] [address] [id number] [place] [address]- 7049 Jan, [facility] [place] [facility] [address] [id number] [address]- 5088 Dec, [facility] [place] [facility] [address] [id number] [place] [address]- 1411 Dec, [facility] [place] [facility] [address] [place] [id number] [address]- 4211 Dec, [facility] [address] [id number] [address]- 1713 Dec, [facility] [address], [place] [address]- 0699 Dec, [facility] [address], [place] [address]- 1255 Dec, [facility] [address], [place] [address]- [address] November, [facility] [address], [place] [address]- 1468 November, [facility] [address], [place] [address]- 5[address] Sep, [facility] [address], [place] [address]- 6717 Aug, IMMUNIZATIONS No Known Immunizations SOCIAL HISTORY Never Assessed REASON FOR VISIT fibromyalgia-----DBservandottMIRIAN PLAN OF CARE VITAL SIGNS Height 67 in 2017-12-07 Weight 205 lbs 2017-12-07 Temperature 98.9 degrees Fahrenheit 2017-12-07 Heart Rate 90 bpm 2017-12-07 Respiratory Rate 20 2017-12-07 BMI 32.10 kg/m2 2017-12-07 Blood pressure systolic 128 mmHg 2017-12-07 Blood pressure diastolic 80 mmHg 2017-12-07 MEDICATIONS Medication Instructions Dosage Frequency Start Date End Date Duration Status Glucosamine Chondroitin Triple - Orally Once a day 2 tablets 24h Active Losartan Potassium 25 MG Orally Once a day 1 tablet 24h Active Aspirin 81 81 MG Orally Once a day 1 tablet 24h Active Fish Oil-Krill Oil - Orally Once a day 1200-360mg takes 2 capsules 24h Active Iron 325 (65 Fe) MG Orally Once a day 1 tablet 24h Active Nitrofurantoin Macrocrystal 100 MG Orally Once a day 1 capsule with food or milk 24h Active Zolpidem Tartrate 5 mg Orally Once a day 1 tablet at bedtime 24h Active BuPROPion HCl ER (XL) 300 MG Orally Once a day 1 tablet in the morning 24h Active Vitamin B-12 2500 MCG Active Metformin HCl 1000 MG Orally Twice a day 1 tablet with meals 12h Active Atorvastatin Calcium 40 MG Orally Once a day 1 tablet 24h Active Test strips as directed 12h November, Active Levothyroxine Sodium 50 mcg Orally Once a day 1 tablet on an empty stomach in the morning 24h November, Active Naproxen 500 MG Orally Twice a day 1 tablet 12h Active Black Cohosh 540 MG Orally Twice a day 2 capsules 12h Active Levothyroxine Sodium 200 MCG Orally Once a day 1 tablet on an empty stomach in the morning 24h Active Humalog 100 UNIT/ML Subcutaneous Once a day inject 70 units 24h Aug, Active Neurontin 100 mg Orally Three times a day 1 capsule 8h November, 30 day(s) Active RESULTS Name Result Date Reference Range A1C (IN HOUSE) 2017-12-07 A1C IN HOUSE 9.6 4.3 - 5.6 % Previous A1c Lot [id number] Exp date 09/2019 MICROALBUMIN, URINE (IN HOUSE) 2017-12-07 MICROALBUMIN Normal Lot # [id number] Exp date 06/2018 Clarity Clear Color Yellow ALB 10 CRE 50 A:C (IN HOUSE) <30 Control Control Lot # Exp date PROCEDURES Procedure Date Ordered Result Body Site GLYCATED HEMOGLOBIN TEST December 07, 2017 MICROALBUMIN, SEMIQUANT December 07, 2017 INSTRUCTIONS MEDICATIONS ADMINISTERED No Known Medications MEDICAL [...]
--- OUTSIDE RECORDS SUMMARY | 2018-10-08 09:36 | XMS REPORT ---
Author Author JUNE PHAN Organization [facility] Address [address] [place] [address] Care Team Providers Care Cartographic Designer Name Role Phone JUNE PHAN Unavailable PROBLEMS Type Condition ICD9-CM Code [id number] Code Onset Dates Condition Status SNOMED Code Problem Type 2 diabetes mellitus without complications E11.9 Active 994048771 Problem Other chronic pain G89.29 Active 66387418 Problem [facility] 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.4 Active 300722440 ALLERGIES Substance Reaction Event Type Date Status Sulfa Drugs bottoms out blood sugar Non Drug Allergy Dec, Active ENCOUNTERS Encounter Location Date Diagnosis [place] [address] [place] [id number] [place] [address]- 376[address] 16 Jan, 2018 [facility] [address] [place] [id number] [place] [address] 54595- 9065 05 Jan, 2018 [place] [address] [place] [id number] [place] [address] 79205- 8861 Dec, [place] [address] [place] [id number] [place] [address] 72577- 7276 Dec, Other chronic pain G89.29 ; Pain in left knee M25.562 ; Pain in right knee M25.561 and Bilateral leg edema R60.0 [facility] [address] [place] [address] 82681- 4178 Dec, Type 2 diabetes mellitus without complications E11.9 [facility] [address] [place] [id number] [place] [address] 25491- 4157 Dec, [place] [address] [place] [id number] [place] [address] 13327- 1756 Dec, Type 2 diabetes mellitus without complications E11.9 ; [facility] 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.4 ; Other chronic pain G89.29 and Prophylactic antibiotic Z79.2 [facility] [address], [place] [address]- 6509 November, Type 2 diabetes mellitus without complications E11.9 ; [facility] 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.4 ; Pain in left knee M25.562 and Pain in right knee M25.561 [facility] [address] [place] [id number] [place] [address] 68107- 5782 November, [facility] [address] [place] [id number] [place] [address] 71238- 2894 November, [facility] [address] [place] [id number] [place] [address] 80317- 9972 Oct, [facility] [address] [place] [id number] [place] [address] 85135- 0674 Oct, [facility] [address] [place] [id number] [place] [address] 76908- 2517 Oct, Type 2 diabetes mellitus without complications E11.9 [facility] [address], [place] [address]- 8160 Sep, [facility] [address] [place] [id number] [place] [address] 37212- 7145 Aug, Other chronic pain G89.29 ; Pain in left knee M25.562 and Pain in right knee M25.561 [facility] [address] [place] [id number] [address]- 3635 Aug, [facility] [address] [address]- 7159 Aug, [facility] [address] [place] [id number] [place] [address] 51025- 5335 Aug, Type 2 diabetes mellitus without complications E11.9 ; 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 ; Other chronic pain G89.29 ; Pain in left knee M25.562 and Pain in right knee M25.561 [facility] [address] [facility] [id number] [place] [address]- 1745 Dec, [facility] [address] [id number] [place] [address]- 1518 14 Oct, 2014 [facility] [place] [facility] [address] [id number] [place] [address]- 9589 Oct, [facility] [place] [facility] [address] [id number] [place] [address]- 8293 November, [facility] [place] [facility] [address] [id number] [place] [address]- 6087 November, [facility] [place] [facility] [address] [id number] [place] [address]- 5442 November, [facility] [place] [facility] [address] [id number] [place] [address]- 2717 November, [facility] [place] [facility] [address] [id number] [place] [address]- 9454 November, [facility] [place] [facility] [address] [id number] [place] [address]- 8726 Aug, [facility] [place] [facility] [address] [id number] [place] [address]- 1645 Aug, [facility] [place] [facility] [address] [id number] [place] [address]- 1515 Aug, [facility] [place] [facility] [address] [id number] [place] [address]- 4911 Aug, [facility] [place] [facility] [address] [id number] [place] [address]- 9429 Jul, [facility] [place] [facility] [address] [id number] [place] [address]- 9626 Jul, [facility] [place] [facility] [address] [id number] [place] [address]- 6306 Jun, [facility] [place] [facility] [address] [id number] [place] [address]- 6473 Jun, [facility] [place] [facility] [address] [id number] [place] [address]- 6229 Apr, [facility] [place] [facility] [address] [id number] [place] [address]- 5719 Apr, [facility] [place] [facility] [address] [id number] [place] [address]- 6162 Mar, [facility] [place] [facility] [address] [id number] [place] [address]- 5858 Mar, [facility] [place] [facility] [address] [id number] [place] [address]- 1189 Mar, [facility] [place] [facility] [address] [id number] [place] [address]- 3269 Feb, [facility] [place] [facility] [address] [id number] [place] [address]- 4746 Feb, [facility] [place] [facility] [address] [id number] [place] [address]- 1096 Jan, [facility] [place] [facility] [address] [id number] [place] [address]- 0960 Jan, [facility] [place] [facility] [address] [id number] [place] [address]- 2601 Jan, [facility] [place] [facility] [address] [id number] [place] [address]- 3918 Jan, [facility] [place] [facility] [address] [id number] [address]- 9484 Jan, [facility] [place] [facility] [address] [id number] [place] [address]- 0486 Jan, [facility] [place] [facility] [address] [id number] [place] [address]- 2492 Dec, [facility] [place] [facility] [address] [id number] [place] [address]- 4715 Dec, [facility] [place] [facility] [address] [place] [id number] [address] [address] Dec, [facility] [address], [place] [address]- 1456 Dec, [facility] [address] [address] Dec, [facility] [address] [place] [address]- 3089 Dec, [facility] [address] [address]- 2508 November, [facility] [address], [place] [address]- 3382 November, [facility] [address], [place] [address]- 6530 Sep, [facility] [address] [place] [address]- 8665 Aug, IMMUNIZATIONS No Known Immunizations SOCIAL HISTORY Never Assessed REASON FOR VISIT Hospital f/u - [facility] 12/28/2017 for dyhidration and ketoacidosis-Meghann [facility]ORT[facility] PLAN OF CARE Activity Details Follow Up with PCP as scheduled Reason: VITAL SIGNS Height 67 in 2018-01-02 Weight 197.1 lbs 2018-01-02 Temperature 98.2 degrees Fahrenheit 2018-01-02 Heart Rate 68 bpm 2018-01-02 Respiratory Rate 18 2018-01-02 BMI 30.87 kg/m2 2018-01-02 Blood pressure systolic 122 mmHg 2018-01-02 Blood pressure diastolic 74 mmHg 2018-01-02 MEDICATIONS Medication Instructions Dosage Frequency Start Date End Date Duration Status Humalog 100 UNIT/ML Subcutaneous Once a day inject 70 units 24h Aug, Active Vitamin B-12 2500 MCG Active Glucosamine Chondroitin Triple - Orally Once a day 2 tablets 24h Active Levothyroxine Sodium 50 mcg Orally Once a day 1 tablet on an empty stomach in the morning 24h November, Active Fish Oil-Krill Oil - Orally Once a day 1200-360mg takes 2 capsules 24h Active BuPROPion HCl ER (XL) 300 MG Orally Once a day 1 tablet in the morning 24h Active Atorvastatin Calcium 40 MG Orally Once a day 1 tablet 24h Active Nitrofurantoin Macrocrystal 100 MG Orally Once a day 1 capsule with food or milk 24h Not-Taking Aspirin 81 81 MG Orally Once a day 1 tablet 24h Active Naproxen 500 MG Orally Twice a day 1 tablet 12h Active Iron 325 (65 Fe) MG Orally Once a day 1 tablet 24h Active Levothyroxine Sodium 200 MCG Orally Once a day 1 tablet on an empty stomach in the morning 24h Active Metformin HCl 1000 MG Orally Twice a day 1 tablet with meals 12h Not-Taking Black Cohosh 540 MG Orally Twice a day 2 capsules 12h Active Test strips as directed 12h November, Active Losartan Potassium 25 MG Orally Once a day 1 tablet 24h Active Zolpidem Tartrate 5 mg Orally Once a day 1 tablet at bedtime 24h Active Neurontin 100 mg Orally Three times a day 1 capsule 8h November, 30 day(s) Not-Taking RESULTS No Results PROCEDURES No Known procedures [...]
--- OUTSIDE RECORDS SUMMARY | 2018-10-08 09:37 | XMS REPORT ---
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 513107174 ALLERGIES No Information ENCOUNTERS Encounter Location Date Diagnosis [place] [id number] [place] [address] 91777- 4188 Jan, [place] [id number] [place] [address] 73854- 5328 Jan, [place] [id number] [place] [address] 58099- 8765 Dec, [place] [address] [address]27- 7783 Dec, Other chronic pain G89.29 ; Pain in left knee M25.562 ; Pain in right knee M25.561 and Bilateral leg edema R60.0 [place] [id number] [place] [address] 10400- 7933 Dec, Type 2 diabetes mellitus without complications E11.9 [place] [id number] [place] [address] 06450- 3750 Dec, [place] [id number] [place] [address] 04805- 0272 Dec, Type 2 diabetes mellitus without complications E11.9 ; 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 ; Other chronic pain G89.29 and Prophylactic antibiotic Z79.2 [place] [address], [place] [address] 7814 November, Type 2 diabetes mellitus without complications E11.9 ; 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 ; Pain in left knee M25.562 and Pain in right knee M25.561 [facility] [address], [place] [address] 1201 November, [facility] [id number] [place] [address] 34990- 1495 November, [facility] [id number] [address] 9140 Oct, [facility] [id number] [place] [address] 95831- 9825 Oct, [facility] [address], [place] [address] 4958 Oct, Type 2 diabetes mellitus without complications E11.9 [facility] [address], [place] [address] 8184 Sep, [facility] [address], [place] [address] 4197 Aug, Other chronic pain G89.29 ; Pain in left knee M25.562 and Pain in right knee M25.561 [facility] [address], [place] [address] 7706 Aug, [facility] [address], [place] [address]- 9652 Aug, [facility] [id number], [place] [address]- 3086 Aug, Type 2 diabetes mellitus without complications E11.9 ; 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 ; Other chronic pain G89.29 ; Pain in left knee M25.562 and Pain in right knee M25.561 [facility] [address], [place] [address] 5569 Dec, [facility] [address] [id number] [place] [address] 5081 Oct, [facility] [place] [facility] [address] [id number] [place] [address]- 1105 Oct, [facility] [place] [facility] [address] [id number] [place] [address]- 0252 November, [facility] [place] [facility] [address] [id number] [place] [address]- 9973 November, [facility] [place] [facility] [address] [id number] [place] [address]- 0364 November, [facility] [place] [facility] [address] [id number] [place] [address]- 2926 November, [facility] [place] [facility] [address] [id number] [place] [address]- 0755 November, [facility] [place] [facility] [address] [id number] [place] [address]- 7273 Aug, [facility] [place] [facility] [address] [id number] [place] [address]- 5926 Aug, [facility] [place] [facility] [address] [id number] [place] [address]- 2482 Aug, [facility] [place] [facility] [address] [id number] [place] [address]- 6625 Aug, [facility] [place] [facility] [address] [id number] [place] [address]- 5102 Jul, [facility] [place] [facility] [address] [id number] [place] 4760 Jul, [facility] [place] [facility] [address] [id number] [place] [address]- 7714 Jun, [facility] [place] [facility] [address] [id number] [place] [address]- 6114 Jun, [facility] [place] [facility] [address] [id number] [place] [address]- 5254 Apr, [facility] [address] [id number] [place] [address]- 7561 29 Apr, 2013 [facility] [place] [facility] [address] [id number] [place] [address]- 9760 Mar, [facility] [place] [facility] [address] [id number] [place] [address]- 8941 27 Mar, 2013 [facility] [place] [facility] [address] [id number] [place] [address]- 7085 17 Mar, 2013 [facility] [place] [facility] [address] [id number] [place] [address]- 0013 Feb, [facility] [place] [facility] [address] [id number] [place] [address]- 8492 Feb, [facility] [address] [id number] [place] [address]- 3955 Jan, [facility] [place] [facility] [address] [id number] [place] [address]- 5954 Jan, [facility] [place] [facility] [address] [id number] [place] [address]- 2622 Jan, [facility] [place] [facility] [address] [id number] [place] [address]- 1133 Jan, [facility] [place] [facility] [address] [id number] [place] [address]- 0758 Jan, [facility] [place] [facility] [address] [id number] [place] [address]- 8763 Jan, [facility] [place] [facility] [address] [id number] [place] [address]- 1174 Dec, [facility] [place] [facility] [address] [id number] [place] [address]- 8388 Dec, [facility] [place] [facility] [address] [id number] [place] [address]- 9487 Dec, [facility] [id number], [place] [address]- 3926 Dec, [facility] [id number], [place] [address]- 7502 Dec, [facility] [id number], [place] [address]- 3987 Dec, [facility] [id number], [place] [address]- 0406 November, [facility] [address], [place] [address]- 1149 November, [facility] [id number], [place] [address]- 4567 Sep, [facility] [id number], [place] [address]- 3223 Aug, IMMUNIZATIONS No Known Immunizations SOCIAL HISTORY Never Assessed REASON FOR VISIT upload request to pt PLAN OF CARE VITAL SIGNS MEDICATIONS Unknown [...]
--- OUTSIDE RECORDS SUMMARY | 2018-10-08 09:37 | XMS REPORT ---
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 029538486 ALLERGIES Substance Reaction Event Type Date Status Sulfa Drugs bottoms out blood sugar Non Drug Allergy Dec, Active ENCOUNTERS Encounter Location Date Diagnosis [place] [address] 6[address]66- 5580 Jan, [place] [id number] [place] [address] 40120- 1395 Jan, [place] [address] 27275- 0723 Dec, [place] [id number] [place] [address] 89248- 5704 Dec, Other chronic pain G89.29 ; Pain in left knee M25.562 ; Pain in right knee M25.561 and Bilateral leg edema R60.0 [place] [id number] [place] [address] 44618- 1694 Dec, Type 2 diabetes mellitus without complications E11.9 [place] [address] 47761- 1212 Dec, [place] [id number] [place] [address] 12217- 9155 Dec, Type 2 diabetes mellitus without complications E11.9 ; 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 ; Other chronic pain G89.29 and Prophylactic antibiotic Z79.2 [facility] [address] [address]- 3527 November, Type 2 diabetes mellitus without complications E11.9 ; [facility] 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.4 ; Pain in left knee M25.562 and Pain in right knee M25.561 [facility] [address], [place] [address]- 9528 November, [facility] [address] [address]- 7273 November, [facility] [address] [place] [address] 36578- 9509 Oct, [facility] [address] [place] [address] 20458- 2364 Oct, [facility] [id number] [place] [address] 92788- 0081 Oct, Type 2 diabetes mellitus without complications E11.9 [facility] [address], [place] [address]- 6230 Sep, [facility] [address] [place] [address] 14014- 4267 Aug, Other chronic pain G89.29 ; Pain in left knee M25.562 and Pain in right knee M25.561 [facility] [address], [place] [address]- 5397 Aug, [facility] [address], [place] [address]- 8653 Aug, [facility] [address], [place] [address]- 3387 Aug, Type 2 diabetes mellitus without complications E11.9 ; [facility] 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.4 ; Other chronic pain G89.29 ; Pain in left knee M25.562 and Pain in right knee M25.561 [facility] [id number] [place] [address]- 9716 Dec, [facility] [address] [id number] [place] [address]- 8514 14 Oct, 2014 [facility] [address] [id number] [place] [address]- 7040 Oct, [facility] [address] [id number] [place] [address]- 2713 November, [facility] [address] [id number] [place] [address]- 6305 November, [facility] [address] [id number] [place] [address]- 2860 November, [facility] [address] [id number] [place] [address]- 3238 November, [facility] [address] [id number] [place] [address]- 4283 November, [facility] [address] [id number] [place] [address]- 1479 Aug, [facility] [address] [id number] [place] [address]- 3210 Aug, [facility] [address] [id number] [place] [address]- 5663 Aug, [facility] [place] [facility] [address] [id number] [place] [address]- 7770 Aug, [facility] [address] [id number] [place] [address]- 3001 Jul, [facility] [place] [facility] [address] [id number] [place] 5355 Jul, [facility] [place] [facility] [address] [id number] [place] [address]- 1095 Jun, [facility] [place] [facility] [address] [id number] [place] 6459 Jun, [facility] [place] [facility] [address] [id number] [place] [address]- 5538 Apr, [facility] [place] [facility] [address] [id number] [place] [address]- 9939 Apr, [facility] [place] [facility] [address] [id number] [place] [address]- 1891 Mar, [facility] [place] [facility] [address] [id number] [place] [address]- 2490 Mar, [facility] [place] [facility] [address] [id number] [place] [address]- 6480 Mar, [facility] [place] [facility] [address] [id number] [place] [address]- 9489 Feb, [facility] [place] [facility] [address] [id number] [place] [address]- 5190 Feb, [facility] [place] [facility] [address] [id number] [place] [address]- 6255 Jan, [facility] [place] [facility] [address] [id number] [place] [address]- 8998 Jan, [facility] [place] [facility] [address] [id number] [place] [address]- 2197 Jan, [facility] [place] [facility] [address] [id number] [address]- 7436 Jan, [facility] [place] [facility] [address] [id number], [place] [address]- 6749 Jan, [facility] [place] [facility] [address] [id number] [place] [address]- 6373 Jan, [facility] [place] [facility] [address] [id number], [place] [address]- 3655 Dec, [facility] [place] [facility] [address] [id number] [place] [address]- 6746 Dec, [facility] [place] [facility] [address] [facility] [id number], [place] [address]- 2695 Dec, [facility] [id number], [place] [address]- 7169 Dec, [facility] [id number], [place] [address]- 1373 Dec, [facility] [address], [place] [address]- 4899 Dec, [facility] [address], [place] [address]- 7582 November, [facility] [address] 2199 November, [facility] [address], [place] [address]- 6802 Sep, [facility] [id number], [place] [address]- 1918 Aug, IMMUNIZATIONS No Known Immunizations SOCIAL HISTORY Never Assessed REASON FOR VISIT JARVIS Tijerina MA PLAN OF CARE VITAL SIGNS Height 67 in 2018-01-07 Weight 196.7 lbs 2018-01-07 Temperature 98.4 degrees Fahrenheit 2018-01-07 Heart Rate 73 bpm 2018-01-07 Respiratory Rate 20 2018-01-07 Oximetry on room air:96 % 2018-01-07 BMI 30.80 kg/m2 2018-01-07 Blood pressure systolic 120 mmHg 2018-01-07 Blood pressure diastolic 72 mmHg 2018-01-07 MEDICATIONS Medication Instructions Dosage Frequency Start Date End Date Duration Status Test strips 1 test blood sugar 8h November, Active Levothyroxine Sodium 50 mcg Orally Once a day 1 tablet on an empty stomach in the morning 24h November, Active Atorvastatin Calcium 40 MG Orally Once a day 1 tablet 24h Active Black Cohosh 540 MG Orally Twice a day 2 capsules 12h Active Gabapentin 600 MG Orally 3 times a day 1 tablet 8h Active Aspirin 81 81 MG Orally Once a day 1 tablet 24h Active Levothyroxine Sodium 200 MCG Orally Once a day 1 tablet on an empty stomach in the morning 24h Active Nitrofurantoin Macrocrystal 100 MG Orally Once a day 1 capsule with food or milk 24h Not-Taking Neurontin 100 mg Orally Three times a day 1 capsule 8h November, 30 day(s) Not-Taking Iron 325 (65 Fe) MG Orally Once a day 1 tablet 24h Active Metformin HCl 1000 MG Orally Twice a day 1 tablet with meals 12h Active Vitamin B-12 2500 MCG Active Zolpidem Tartrate 5 mg Orally Once a day 1 tablet at bedtime 24h Active Glucosamine Chondroitin Triple - Orally Once a day 2 tablets 24h Unknown Humalog 100 UNIT/ML Subcutaneous Once a day inject 70 units 24h Aug, Active Fish Oil-Krill Oil - Orally Once a day 1200-360mg takes 2 capsules 24h Active Naproxen 500 MG Orally Twice a day 1 tablet 12h Not-Taking BuPROPion HCl ER (XL) 300 MG Orally Once a day 1 tablet in the morning 24h Active Losartan Potassium 25 MG Orally Once a day 1 tablet 24h Unknown RESULTS No Results PROCEDURES No Known procedures [...]
--- OUTSIDE RECORDS SUMMARY | 2018-10-08 09:37 | XMS REPORT ---
Author Author JUNE PHAN Organization [facility] Address [address] 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 526830075 ALLERGIES No Information ENCOUNTERS Encounter Location Date Diagnosis [place] [id number] [place] [address] 49117- 0217 Jan, [place] [id number] [place] [address] 00935- 0421 Jan, [place] [id number] [place] [address] 55304- 0084 Dec, [place] [id number] [place] [address] 51970- 5385 Dec, Other chronic pain G89.29 ; Pain in left knee M25.562 ; Pain in right knee M25.561 and Bilateral leg edema R60.0 [place] [id number] [place] [address] 52147- 3262 Dec, Type 2 diabetes mellitus without complications E11.9 [place] [id number] [place] [address] 54881- 4972 Dec, [place] [address] [address]- 7960 Dec, Type 2 diabetes mellitus without complications E11.9 ; 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 ; Other chronic pain G89.29 and Prophylactic antibiotic Z79.2 [place] [address], [place] [address]- 0031 November, Type 2 diabetes mellitus without complications E11.9 ; 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 ; Pain in left knee M25.562 and Pain in right knee M25.561 [facility] [address], [place] [address]- 9781 November, [facility] [id number] [place] [address] 38730- 1226 November, [facility] [address], [place] [address]- 4969 Oct, [facility] [id number] [place] [address] 49465- 2520 Oct, [facility] [address], [place] [address]- 5486 Oct, Type 2 diabetes mellitus without complications E11.9 [facility] [address], [place] [address]- 4323 Sep, [facility] [id number] [place] [address] 66847- 1787 Aug, Other chronic pain G89.29 ; Pain in left knee M25.562 and Pain in right knee M25.561 [facility] [address], [place] [address]- 7256 Aug, [facility] [address], [place] [address]- 1278 Aug, [facility] [id number], [place] [address]- 4893 Aug, Type 2 diabetes mellitus without complications E11.9 ; residential 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.4 ; Other chronic pain G89.29 ; Pain in left knee M25.562 and Pain in right knee M25.561 [facility] [address], [place] [address]- 1812 Dec, [facility] [place] [facility] [address] [id number] [place] [address]- 0467 Oct, [facility] [place] [facility] [address] [id number] [place] [address]- 1252 Oct, [facility] [place] [facility] [address] [id number] [place] [address]- 6300 November, [facility] [place] [facility] [address] [id number] [place] [address]- 3924 November, [facility] [place] [facility] [address] [id number] [place] [address]- 6411 November, [facility] [place] [facility] [address] [id number] [place] [address]- 9027 November, [facility] [place] [facility] [address] [id number] [place] [address]- 2493 November, [facility] [place] [facility] [address] [id number] [place] [address]- 8981 Aug, [facility] [place] [facility] [address] [id number] [place] [address]- 3061 Aug, [facility] [place] [facility] [address] [id number] [place] [address]- 5018 Aug, [facility] [place] [facility] [address] [id number] [place] [address]- 7086 Aug, [facility] [place] [facility] [address] [id number] [place] [address]- 5251 Jul, [facility] [place] [facility] [address] [id number] [place] [address]- 1972 Jul, [facility] [place] [facility] [address] [id number] [place] 8501 Jun, [facility] [place] [facility] [address] [id number] [place] 0516 Jun, [facility] [place] [facility] [address] [id number] [place] [address]- 1585 Apr, [facility] [address] [id number] [place] [address]- 4681 Apr, [facility] [address] [id number] [place] [address]- 8255 Mar, [facility] [address] [id number] [place] [address]- 8821 Mar, [facility] [address] [id number] [place] [address]- 4087 Mar, [facility] [address] [id number] [place] [address]- 4707 Feb, [facility] [address] [id number] [place] [address]- 8855 Feb, [facility] [address] [id number] [place] [address]- 2382 Jan, [facility] [address] [id number] [place] [address]- 6238 Jan, [facility] [address] [id number] [place] [id number] Jan, [facility] [address] [id number] [place] [address] Jan, [facility] [address] [id number] [place] [address] Jan, [facility] [address] [id number] [place] [address] Jan, [facility] [place] [facility] [address] [id number] [place] [address] Dec, [facility] [place] [facility] [address] [id number] [place] [address] Dec, [facility] [place] [facility] [address] [id number] [place] [address] Dec, [facility] [address] [id number] [address] Dec, [facility] [address] [id number] [address] Dec, [facility] [address] [id number] [id number] Dec, [facility] [address] [id number] [id number] November, [facility] [address] [id number], [place] [address] November, [facility] [address] [id number], [place] [address] Sep, [facility] [address] [id number], [place] [address] Aug, IMMUNIZATIONS No Known Immunizations SOCIAL HISTORY Never Assessed REASON FOR VISIT Requests return call PLAN OF CARE VITAL SIGNS MEDICATIONS Unknown [...]
--- OUTSIDE RECORDS SUMMARY | 2018-10-08 09:37 | XMS REPORT ---
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 155006617 ALLERGIES No Information ENCOUNTERS Encounter Location Date Diagnosis [place] [id number] [place] [address] 09924- 4413 Jan, [place] [id number] [place] [address] 72320- 1784 Jan, [place] [id number] [place] [address] 05517- 8618 Dec, [place] [address] [address]- 2201 Dec, Other chronic pain G89.29 ; Pain in left knee M25.562 ; Pain in right knee M25.561 and Bilateral leg edema R60.0 [place] [id number] [place] [address] 06352- 6761 Dec, Type 2 diabetes mellitus without complications E11.9 [place] [id number] [place] [address] 57368- 8706 Dec, [place] [id number] [place] [address] 18496- 7938 Dec, Type 2 diabetes mellitus without complications E11.9 ; 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 ; Other chronic pain G89.29 and Prophylactic antibiotic Z79.2 [place] [address], [place] [address] 1106 November, Type 2 diabetes mellitus without complications E11.9 ; 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 ; Pain in left knee M25.562 and Pain in right knee M25.561 [facility] [address], [place] [address] 29[address] November, [facility] [id number] [place] [address] 13149- 5557 November, [facility] [id number] [address] 4781 Oct, [facility] [id number] [place] [address] 69614- 4110 Oct, [facility] [address], [place] [address] 9151 Oct, Type 2 diabetes mellitus without complications E11.9 [facility] [address], [place] [address]- 1705 Sep, [facility] [address], [place] [address]- 4596 Aug, Other chronic pain G89.29 ; Pain in left knee M25.562 and Pain in right knee M25.561 [facility] [address], [place] [address]- 9116 Aug, [facility] [address], [place] [address]- 7442 Aug, [facility] [id number], [place] [address]- 7143 Aug, Type 2 diabetes mellitus without complications E11.9 ; 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 ; Other chronic pain G89.29 ; Pain in left knee M25.562 and Pain in right knee M25.561 [facility] [address], [place] [address]- 2961 Dec, [facility] [address] [id number] [place] [address]- 6886 Oct, [facility] [place] [facility] [address] [id number] [place] [address]- 8730 Oct, [facility] [place] [facility] [address] [id number] [place] [address]- 1223 November, [facility] [place] [facility] [address] [id number] [place] [address]- 4108 November, [facility] [place] [facility] [address] [id number] [place] [address]- 0053 November, [facility] [place] [facility] [address] [id number] [place] [address]- 3674 November, [facility] [place] [facility] [address] [id number] [place] [address]- 6234 November, [facility] [place] [facility] [address] [id number] [place] [address]- 5017 Aug, [facility] [place] [facility] [address] [id number] [place] [address]- 8216 Aug, [facility] [place] [facility] [address] [id number] [place] [address]- 8716 Aug, [facility] [place] [facility] [address] [id number] [place] [address]- 9794 Aug, [facility] [place] [facility] [address] [id number] [place] [address]- 6942 Jul, [facility] [place] [facility] [address] [id number] [place] [address] Jul, [facility] [place] [facility] [address] [id number] [place] [address]- 4191 Jun, [facility] [place] [facility] [address] [id number] [place] [address]- 9173 Jun, [facility] [place] [facility] [address] [id number] [place] [address]- 4874 Apr, [facility] [address] [id number] [place] [address]- 9580 29 Apr, 2013 [facility] [place] [facility] [address] [id number] [place] [address]- 7940 Mar, [facility] [place] [facility] [address] [id number] [place] [address]- 4341 27 Mar, 2013 [facility] [place] [facility] [address] [id number] [place] [address]- 4357 17 Mar, 2013 [facility] [place] [facility] [address] [id number] [place] [address]- 3077 Feb, [facility] [place] [facility] [address] [id number] [place] [address]- 2312 Feb, [facility] [address] [id number] [place] [address]- 3993 Jan, [facility] [place] [facility] [address] [id number] [place] [address]- 3342 Jan, [facility] [place] [facility] [address] [id number] [place] [address]- 1934 Jan, [facility] [place] [facility] [address] [id number] [place] [address]- 7221 Jan, [facility] [place] [facility] [address] [id number] [place] [address]- 2081 Jan, [facility] [place] [facility] [address] [id number] [place] [address]- 1182 Jan, [facility] [place] [facility] [address] [id number] [place] [address]- 1487 Dec, [facility] [place] [facility] [address] [id number] [place] [address]- 1319 Dec, [facility] [place] [facility] [address] [id number] [place] [address]- 3355 Dec, [facility] [id number], [place] [address]- 5736 Dec, [facility] [id number], [place] [address]- 8118 Dec, [facility] [id number], [place] [address]- 2266 Dec, [facility] [id number], [place] [address]- 8306 November, [facility] [address], [place] [address]- 7013 November, [facility] [id number], [place] [address]- 6411 Sep, [facility] [id number], [place] [address]- 9019 Aug, IMMUNIZATIONS No Known Immunizations SOCIAL HISTORY Never Assessed REASON FOR VISIT upload request PLAN OF CARE VITAL SIGNS MEDICATIONS Unknown [...]
--- OUTSIDE RECORDS SUMMARY | 2018-10-08 09:37 | XMS REPORT ---
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 750420460 ALLERGIES Substance Reaction Event Type Date Status Sulfa Drugs bottoms out blood sugar Non Drug Allergy Dec, Active ENCOUNTERS Encounter Location Date Diagnosis [place] [address] [address]- 2171 Jan, [place] [address] [id number] [place] [address] 17764- 8971 Jan, [place] [address] 59860- 7213 Dec, [place] [address] [id number] [place] [address] 05759- 2508 Dec, Other chronic pain G89.29 ; Pain in left knee M25.562 ; Pain in right knee M25.561 and Bilateral leg edema R60.0 [place] [id number] [place] [address] 14713- 5886 Dec, Type 2 diabetes mellitus without complications E11.9 [place] [address] 84262- 8222 Dec, [place] [id number] [place] [address] 98925- 3225 Dec, Type 2 diabetes mellitus without complications E11.9 ; 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.4 ; Other chronic pain G89.29 and Prophylactic antibiotic Z79.2 [facility] [address], [place] [address]- 8838 November, Type 2 diabetes mellitus without complications E11.9 ; alf 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.4 ; Pain in left knee M25.562 and Pain in right knee M25.561 [facility] [address], [place] [address]- 3235 November, [facility] [id number], [place] [address]- 2280 November, [facility] [address] [place] [address] 88795- 4655 Oct, [facility] [address] [place] [address] 75191- 0887 Oct, [facility] [id number] [place] [address] 96746- 8865 Oct, Type 2 diabetes mellitus without complications E11.9 [facility] [address], [place] [address]- 9244 Sep, [facility] [address] [place] [address] 45147- 4458 Aug, Other chronic pain G89.29 ; Pain in left knee M25.562 and Pain in right knee M25.561 [facility] [address], [place] [address]- 3015 Aug, [facility] [address], [place] [address]- 2987 Aug, [facility] [address], [place] [address]- 2626 Aug, Type 2 diabetes mellitus without complications E11.9 ; alf 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.4 ; Other chronic pain G89.29 ; Pain in left knee M25.562 and Pain in right knee M25.561 [facility] [id number] [place] [address]- 1668 Dec, [facility] [address] [id number] [place] [address]- 5162 14 Oct, 2014 [facility] [address] [id number] [place] [address]- 5816 Oct, [facility] [address] [id number] [place] [address]- 7472 November, [facility] [address] [id number] [place] [address]- 7898 November, [facility] [address] [id number] [place] [address]- 2464 November, [facility] [address] [id number] [place] [address]- 8569 November, [facility] [address] [id number] [place] [address]- 0675 November, [facility] [address] [id number] [place] [address]- 4136 Aug, [facility] [address] [id number] [place] [address]- 4878 Aug, [facility] [address] [id number] [place] [address]- 0280 Aug, [facility] [place] [facility] [address] [id number] [place] [address]- 6938 Aug, [facility] [address] [id number] [place] [address]- 0519 Jul, [facility] [place] [facility] [address] [id number] [place] 1547 Jul, [facility] [place] [facility] [address] [id number] [place] [address]- 0308 Jun, [facility] [place] [facility] [address] [id number] [place] 1000 Jun, [facility] [place] [facility] [address] [id number] [place] [address]- 3379 Apr, [facility] [place] [facility] [address] [id number] [place] [address]- 9152 Apr, [facility] [place] [facility] [address] [id number] [place] [address]- 3763 Mar, [facility] [place] [facility] [address] [id number] [place] [address]- 5768 Mar, [facility] [place] [facility] [address] [id number] [place] [address]- 4303 Mar, [facility] [place] [facility] [address] [id number] [place] [address]- 5559 Feb, [facility] [place] [facility] [address] [id number] [place] [address]- 7563 Feb, [facility] [place] [facility] [address] [id number] [place] [address]- 3101 Jan, [facility] [place] [facility] [address] [id number] [place] [address]- 8525 Jan, [facility] [place] [facility] [address] [id number] [place] [address]- 0544 Jan, [facility] [place] [facility] [address] [id number], [place] [address]- 9742 Jan, [facility] [place] [facility] [address] [id number], [place] [address]- 5038 Jan, [facility] [place] [facility] [address] [id number] [place] [address]- 2462 Jan, [facility] [place] [facility] [address] [id number], [place] [address]- 9014 Dec, [facility] [place] [facility] [address] [id number] [place] [address]- 8866 Dec, [facility] [place] [facility] [id number], [place] [address]- 0173 Dec, [facility] [address], [place] [address]- 0015 Dec, [facility] [address], [place] [address]- 9063 Dec, [facility] [address], [place] [address]- 4506 Dec, [facility] [address], [place] [address]- 6542 November, [facility] [address] [place] [address] 372221- 0199 November, [facility] [address], [place] [address]- 3471 Sep, [facility] [address], [place] [address]- 9331 Aug, IMMUNIZATIONS No Known Immunizations SOCIAL HISTORY Never Assessed REASON FOR VISIT Bilateral Knee Injection WB-MA PLAN OF CARE Activity Details Future/Pending Procedure JOINT INJECTION-LARGE JOINT VITAL SIGNS Height 67 in 2018-01-08 Weight 196.8 lbs 2018-01-08 Temperature 98 degrees Fahrenheit 2018-01-08 Heart Rate 82 bpm 2018-01-08 Respiratory Rate 20 2018-01-08 BMI 30.82 kg/m2 2018-01-08 Blood pressure systolic 144 mmHg 2018-01-08 Blood pressure diastolic 86 mmHg 2018-01-08 MEDICATIONS Medication Instructions Dosage Frequency Start Date End Date Duration Status Humalog 100 UNIT/ML Subcutaneous Once a day inject 70 units 24h Aug, Active BuPROPion HCl ER (XL) 300 MG Orally Once a day 1 tablet in the morning 24h Active Vitamin B-12 2500 MCG Active Levothyroxine Sodium 50 mcg Orally Once a day 1 tablet on an empty stomach in the morning 24h November, Active Fish Oil-Krill Oil - Orally Once a day 1200-360mg takes 2 capsules 24h Active Iron 325 (65 Fe) MG Orally Once a day 1 tablet 24h Active Test strips 1 test blood sugar 8h November, Active Neurontin 100 mg Orally Three times a day 1 capsule 8h November, 30 day(s) Not-Taking Nitrofurantoin Macrocrystal 100 MG Orally Once a day 1 capsule with food or milk 24h Not-Taking Aspirin 81 81 MG Orally Once a day 1 tablet 24h Active Metformin HCl 1000 MG Orally Twice a day 1 tablet with meals 12h Active Atorvastatin Calcium 40 MG Orally Once a day 1 tablet 24h Active Gabapentin 600 MG Orally 3 times a day 1 tablet 8h Active Glucosamine Chondroitin Triple - Orally Once a day 2 tablets 24h Active Levothyroxine Sodium 200 MCG Orally Once a day 1 tablet on an empty stomach in the morning 24h Active Black Cohosh 540 MG Orally Twice a day 2 capsules 12h Active Naproxen 500 MG Orally Twice a day 1 tablet 12h Not-Taking Zolpidem Tartrate 5 mg Orally Once a day 1 tablet at bedtime 24h Active Spironolactone 25 MG Orally Once a day 1 tablet with food 24h Dec, Mar, 30 day(s) Active Losartan Potassium 25 MG Orally Once a day 1 tablet 24h Active RESULTS No Results PROCEDURES Procedure Date Ordered Result Body Site DRAIN/INJECT, JOINT/BURSA January 08, 2018 INSTRUCTIONS MEDICATIONS ADMINISTERED No Known Medications [...]
--- OUTSIDE RECORDS SUMMARY | 2018-10-08 09:38 | XMS REPORT ---
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 504829693 ALLERGIES No Information ENCOUNTERS Encounter Location Date Diagnosis [place] [id number] [place] [address] 04864- 0486 Jan, [place] [id number] [place] [address] 54948- 0145 Jan, [place] [id number] [place] [address] 20728- 6472 Dec, [place] [address] [address]- 6368 Dec, Other chronic pain G89.29 ; Pain in left knee M25.562 ; Pain in right knee M25.561 and Bilateral leg edema R60.0 [place] [id number] [place] [address] 49306- 9719 Dec, Type 2 diabetes mellitus without complications E11.9 [place] [id number] [place] [address] 98135- 7140 Dec, [place] [id number] [place] [address] 77636- 8796 Dec, Type 2 diabetes mellitus without complications E11.9 ; 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.4 ; Other chronic pain G89.29 and Prophylactic antibiotic Z79.2 [place] [address] [address]- 6888 November, Type 2 diabetes mellitus without complications E11.9 ; 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.4 ; Pain in left knee M25.562 and Pain in right knee M25.561 [facility] [address] [address]- 2269 November, [facility] [id number] [place] [address] 90786- 8340 November, [facility] [id number] [address]- 0573 Oct, [facility] [id number] [place] [address] 73022- 8610 Oct, [facility] [address] [address]- 6450 Oct, Type 2 diabetes mellitus without complications E11.9 [facility] [address] [address]- 4438 Sep, [facility] [address] [address]- 6069 Aug, Other chronic pain G89.29 ; Pain in left knee M25.562 and Pain in right knee M25.561 [facility] [address] [address]- 7326 Aug, [facility] [address] [address]- 4477 Aug, [facility] [id number] [address]- 4900 Aug, Type 2 diabetes mellitus without complications E11.9 ; 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.4 ; Other chronic pain G89.29 ; Pain in left knee M25.562 and Pain in right knee M25.561 [facility] [address] [address]- 7381 Dec, [facility] [address] [id number] [place] [address]- 9469 Oct, [facility] [place] [facility] [address] [id number] [place] [address]- 6364 Oct, [facility] [place] [facility] [address] [id number] [place] [address]- 7913 November, [facility] [place] [facility] [address] [id number] [place] [address]- 9818 November, [facility] [place] [facility] [address] [id number] [place] [address]- 0956 November, [facility] [place] [facility] [address] [id number] [place] [address]- 8295 November, [facility] [place] [facility] [address] [id number] [place] [address]- 1057 November, [facility] [place] [facility] [address] [id number] [place] [address]- 8591 Aug, [facility] [place] [facility] [address] [id number] [place] [address]- 3249 Aug, [facility] [place] [facility] [address] [id number] [place] [address]- 8902 Aug, [facility] [place] [facility] [address] [id number] [place] [address]- 8885 Aug, [facility] [place] [facility] [address] [id number] [place] [address]- 8917 Jul, [facility] [place] [facility] [address] [id number] [place] 0479 Jul, [facility] [place] [facility] [address] [id number] [place] [address]- 6153 Jun, [facility] [place] [facility] [address] [id number] [place] [address]- 3720 Jun, [facility] [place] [facility] [address] [id number] [place] [address]- 9152 Apr, [facility] [address] [id number] [place] [address]- 2664 29 Apr, 2013 [facility] [place] [facility] [address] [id number] [place] [address]- 9890 Mar, [facility] [place] [facility] [address] [id number] [place] [address]- 9843 27 Mar, 2013 [facility] [place] [facility] [address] [id number] [place] [address]- 1349 17 Mar, 2013 [facility] [place] [facility] [address] [id number] [place] [address]- 0557 Feb, [facility] [place] [facility] [address] [id number] [place] [address]- 2644 Feb, [facility] [address] [id number] [place] [address] Jan, [facility] [place] [facility] [address] [id number] [place] [address] Jan, [facility] [place] [facility] [address] [id number] [place] [address] Jan, [facility] [place] [facility] [address] [id number] [place] [address] Jan, [facility] [place] [facility] [address] [id number] [place] [address] Jan, [facility] [place] [facility] [address] [id number] [place] [address] Jan, [facility] [place] [facility] [address] [id number] [place] [address] Dec, [facility] [place] [facility] [address] [id number] [place] [address] Dec, [facility] [place] [facility] [address] [id number] [place] [address] Dec, [facility] [address] [id number] [address] Dec, [facility] [address] [id number] [address] Dec, [facility] [address] [id number] [address] Dec, [facility] [address] [id number] [address] November, [facility] [address] [id number] [address] November, [facility] [address] [id number] [address] Sep, [facility] [address] [id number] [address] Aug, IMMUNIZATIONS No Known Immunizations SOCIAL HISTORY Never Assessed REASON FOR VISIT Refill request PLAN OF CARE VITAL SIGNS MEDICATIONS Medication Instructions Dosage Frequency Start Date End Date Duration Status Test strips as directed 12November, Active RESULTS No Results PROCEDURES No Known [...]
--- OUTSIDE RECORDS SUMMARY | 2018-10-08 09:38 | XMS REPORT ---
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 [id number] ALLERGIES No Information ENCOUNTERS Encounter Location Date Diagnosis [place] [id number] [place] [address] 28205- 8753 Jan, [place] [id number] [place] [address] 53853- 0748 Jan, [place] [id number] [place] [address] 99778- 5018 Dec, [place] [address] [address]- 4740 Dec, Other chronic pain G89.29 ; Pain in left knee M25.562 ; Pain in right knee M25.561 and Bilateral leg edema R60.0 [place] [id number] [place] [address] 77684- 3562 Dec, Type 2 diabetes mellitus without complications E11.9 [place] [id number] [place] [address] 73776- 5265 Dec, [place] [id number] [place] [address] 36000- 9300 Dec, Type 2 diabetes mellitus without complications E11.9 ; 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 ; Other chronic pain G89.29 and Prophylactic antibiotic Z79.2 [place] [address], [place] [address] 12[address] November, Type 2 diabetes mellitus without complications E11.9 ; 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 ; Pain in left knee M25.562 and Pain in right knee M25.561 [facility] [address], [place] [address] 0633 November, [facility] [id number] [place] [address] 98907- 5432 November, [facility] [id number] [address] 1951 Oct, [facility] [id number] [place] [address] 85794- 9512 Oct, [facility] [address] [address]- 8469 Oct, Type 2 diabetes mellitus without complications E11.9 [facility] [address], [place] [address]- 9217 Sep, [facility] [address], [place] [address]- 1544 Aug, Other chronic pain G89.29 ; Pain in left knee M25.562 and Pain in right knee M25.561 [facility] [address], [place] [address]- 4486 Aug, [facility] [address], [place] [address]- 7977 Aug, [facility] [id number] [address]- 9122 Aug, Type 2 diabetes mellitus without complications E11.9 ; 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 ; Other chronic pain G89.29 ; Pain in left knee M25.562 and Pain in right knee M25.561 [facility] [address], [place] [address]- 5660 Dec, [facility] [address] [id number] [place] [address]- 4490 Oct, [facility] [place] [facility] [address] [id number] [place] [address]- 0528 Oct, [facility] [place] [facility] [address] [id number] [place] [address]- 7468 November, [facility] [place] [facility] [address] [id number] [place] [address]- 6106 November, [facility] [place] [facility] [address] [id number] [place] [address]- 9835 November, [facility] [place] [facility] [address] [id number] [place] [address]- 1435 November, [facility] [place] [facility] [address] [id number] [place] [address]- 4713 November, [facility] [place] [facility] [address] [id number] [place] [address]- 0475 Aug, [facility] [place] [facility] [address] [id number] [place] [address]- 5916 Aug, [facility] [place] [facility] [address] [id number] [place] [address]- 6892 Aug, [facility] [place] [facility] [address] [id number] [place] [address]- 2078 Aug, [facility] [place] [facility] [address] [id number] [place] [address]- 4358 Jul, [facility] [place] [facility] [address] [id number] [place] 0667 Jul, [facility] [place] [facility] [address] [id number] [place] [address]- 1809 Jun, [facility] [place] [facility] [address] [id number] [place] [address]- 9977 Jun, [facility] [place] [facility] [address] [id number] [place] [address]- 2539 Apr, [facility] [address] [id number] [place] [address]- 6740 29 Apr, 2013 [facility] [place] [facility] [address] [id number] [place] [address]- 4451 Mar, [facility] [place] [facility] [address] [id number] [place] [address]- 3045 27 Mar, 2013 [facility] [place] [facility] [address] [id number] [place] [address]- 8160 17 Mar, 2013 [facility] [place] [facility] [address] [id number] [place] [address]- 6582 Feb, [facility] [place] [facility] [address] [id number] [place] [address]- 0113 Feb, [facility] [address] [id number] [place] [address]- 0366 Jan, [facility] [place] [facility] [address] [id number] [place] [address]- 8877 Jan, [facility] [place] [facility] [address] [id number] [place] [address]- 4950 Jan, [facility] [place] [facility] [address] [id number] [place] [address]- 2843 Jan, [facility] [place] [facility] [address] [id number] [place] [address]- 2825 Jan, [facility] [place] [facility] [address] [id number] [place] [address]- 7383 Jan, [facility] [place] [facility] [address] [id number] [place] [address]- 1980 Dec, [facility] [place] [facility] [address] [id number] [place] [address]- 9888 Dec, [facility] [place] [facility] [address] [id number] [place] [address]- 1340 Dec, [facility] [id number], [place] [address]- 6866 Dec, [facility] [id number], [place] [address]- 5092 Dec, [facility] [id number], [place] [address]- 9946 Dec, [facility] [id number] [address]- 0176 November, [facility] [address], [place] [address]- 2015 November, [facility] [id number], [place] [address]- 1307 Sep, [facility] [id number], [place] [address]- 7438 Aug, IMMUNIZATIONS No Known Immunizations SOCIAL HISTORY Never Assessed REASON FOR VISIT pump replacement PLAN OF CARE VITAL SIGNS MEDICATIONS Unknown [...]
--- OUTSIDE RECORDS SUMMARY | 2018-10-08 09:38 | XMS REPORT ---
Author Author KAYLEIGH HUNTER Organization 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 899865148 ALLERGIES No Information ENCOUNTERS Encounter Location Date Diagnosis [place] [id number] [place] [address] 91139- 3011 Jan, [place] [id number] [place] [address] 09468- 9178 Jan, [place] [id number] [place] [address] 55775- 0466 Dec, [place] [address] 94880- 3000 Dec, Other chronic pain G89.29 ; Pain in left knee M25.562 ; Pain in right knee M25.561 and Bilateral leg edema R60.0 [place] [id number] [place] [address] 44930- 6398 Dec, Type 2 diabetes mellitus without complications E11.9 [place] [id number] [place] [address] 17178- 2226 Dec, [place] [id number] [place] [address] 37378- 0422 Dec, Type 2 diabetes mellitus without complications E11.9 ; 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 [address], [place] [address]- 4923 November, [facility] [id number] [place] [address] 11835- 9184 November, [facility] [id number], [place] [address]- 2714 Oct, [facility] [id number] [place] [address] 77015- 7028 Oct, [facility] [address], [place] [address]- 0480 Oct, Type 2 diabetes mellitus without complications E11.9 [facility] [address], [place] [address]- 5557 Sep, [facility] [address], [place] [address]- 1282 Aug, Other chronic pain G89.29 ; Pain in left knee M25.562 and Pain in right knee M25.561 [facility] [address], [place] [address] 4646 Aug, [facility] [address], [place] [address]- 5019 Aug, 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 [address], [place] [address]- 7803 Dec, [facility] [address] [id number] [place] [address]- 8440 Oct, [facility] [place] [facility] [address] [id number] [place] [address]- 3595 Oct, [facility] [place] [facility] [address] [id number] [place] [address]- 5736 November, [facility] [place] [facility] [address] [id number] [place] [address]- 0736 November, [facility] [place] [facility] [address] [id number] [place] [address]- 8828 November, [facility] [place] [facility] [address] [id number] [place] [address]- 7379 November, [facility] [place] [facility] [address] [id number] [place] [address]- 4404 November, [facility] [place] [facility] [address] [id number] [place] [address]- 9175 Aug, [facility] [place] [facility] [address] [id number] [place] [address]- 0519 Aug, [facility] [place] [facility] [address] [id number] [place] [address]- 0671 Aug, [facility] [place] [facility] [address] [id number] [place] [address]- 2479 Aug, [facility] [place] [facility] [address] [id number] [place] [address]- 4972 Jul, [facility] [place] [facility] [address] [id number] [place] 6803 Jul, [facility] [place] [facility] [address] [id number] [place] [address]- 5898 Jun, [facility] [place] [facility] [address] [id number] [place] [address]- 1045 Jun, [facility] [place] [facility] [address] [id number] [place] [address]- 0834 Apr, [facility] [address] [id number] [place] [address]- 2544 29 Apr, 2013 [facility] [place] [facility] [address] [id number] [place] [address]- 7007 Mar, [facility] [place] [facility] [address] [id number] [place] [address]- 4340 27 Mar, 2013 [facility] [place] [facility] [address] [id number] [place] [address]- 2655 17 Mar, 2013 [facility] [place] [facility] [address] [id number] [place] [address]- 4346 Feb, [facility] [place] [facility] [address] [id number] [place] [address]- 4244 Feb, [facility] [address] [id number] [place] [address]- 9497 Jan, [facility] [place] [facility] [address] [id number] [place] [address]- 0718 Jan, [facility] [place] [facility] [address] [id number] [place] [address]- 2139 Jan, [facility] [place] [facility] [address] [id number] [place] [address]- 5478 Jan, [facility] [place] [facility] [address] [id number] [place] [address]- 4492 Jan, [facility] [place] [facility] [address] [id number] [place] [address]- 3139 Jan, [facility] [place] [facility] [address] [id number] [place] [address]- 1053 Dec, [facility] [place] [facility] [address] [id number] [place] [address]- 1816 Dec, [facility] [place] [facility] [address] [id number] [place] [address]- 4117 Dec, [facility] [address] [facility] [id number] [address]- [address] Dec, [facility] [address] [id number], [place] [address]- 5883 Dec, [facility] [address], [place] [address]- 2758 Dec, [facility] [address], [place] [address]- 3352 November, [facility] [address] [id number], [place] [address]- 4332 [address], [facility] [address], [place] [address]- 7691 Sep, [facility] [id number], [place] [address]- 3633 Aug, IMMUNIZATIONS No Known Immunizations SOCIAL HISTORY Never Assessed REASON FOR VISIT Pump mgnt PLAN OF CARE VITAL SIGNS MEDICATIONS Medication Instructions Dosage Frequency Start Date End Date Duration Status Levothyroxine Sodium 200 MCG Orally Once a day 1 tablet on an empty stomach in the morning 24h Unknown Black Cohosh 540 MG Orally Twice a day 2 capsules 12h Unknown Atorvastatin Calcium 40 MG Orally Once a day 1 tablet 24h Unknown Losartan Potassium 25 MG Orally Once a day 1 tablet 24h Unknown Naproxen 500 MG Orally Twice a day 1 tablet 12h Unknown Zolpidem Tartrate 5 MG Orally Once a day 1 tablet at bedtime 24h Unknown Humalog 100 UNIT/ML Subcutaneous Once a day inject 70 units 24h Aug, Active Aspirin 81 81 MG Orally Once a day 1 tablet 24h Unknown Glucosamine Chondroitin Triple - Orally Once a day 2 tablets 24h Unknown Fish Oil-Krill Oil - Orally Once a day 1200-360mg takes 2 capsules 24h Unknown Iron 325 (65 Fe) MG Orally Once a day 1 tablet 24h Unknown Nitrofurantoin Macrocrystal 100 MG Orally Once a day 1 capsule with food or milk 24h Unknown Metformin HCl 1000 MG Orally Twice a day 1 tablet with meals 12h Unknown BuPROPion HCl ER (XL) 300 MG Orally Once a day 1 tablet in the morning 24h Unknown Vitamin B-12 2500 MCG Unknown RESULTS No Results PROCEDURES No Known [...]
--- OUTSIDE RECORDS SUMMARY | 2018-10-08 09:38 | XMS REPORT ---
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 284715378 ALLERGIES No Information ENCOUNTERS Encounter Location Date Diagnosis [place] [id number] [place] [address] 68923- 5432 Jan, [place] [address] [address]77- 3848 Dec, [place] [address] 17991- 0271 Dec, Other chronic pain G89.29 ; Pain in left knee M25.562 ; Pain in right knee M25.561 and Bilateral leg edema R60.0 [place] [id number] [place] [address] 49942- 7999 Dec, Type 2 diabetes mellitus without complications E11.9 [place] [id number] [place] [address] 07094- 2398 Dec, [place] [id number] [place] [address] 79274- 3091 Dec, Type 2 diabetes mellitus without complications E11.9 ; 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 ; Other chronic pain G89.29 and Prophylactic antibiotic Z79.2 [place] [id number] [place] [address] 30436- 8593 November, Type 2 diabetes mellitus without complications E11.9 ; assisted 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.4 ; Pain in left knee M25.562 and Pain in right knee M25.561 [facility] [address] [place] [address] 95162- 3466 November, [facility] [address] [address]- 4979 November, [facility] [id number] [place] [address] 84848- 5270 Oct, [facility] [id number] [place] [address] 53954- 6136 Oct, [facility] [id number] [place] [address] 99117- 8348 Oct, Type 2 diabetes mellitus without complications E11.9 [facility] [id number] [place] [address] 96810- 0370 Sep, [facility] [id number] [place] [address] 81936- 8151 Aug, Other chronic pain G89.29 ; Pain in left knee M25.562 and Pain in right knee M25.561 [facility] [address] [place] [address] 26035- 8769 Aug, [facility] [address] [address]- 8166 Aug, [facility] [address] [address]- 4505 Aug, Type 2 diabetes mellitus without complications E11.9 ; 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 ; Other chronic pain G89.29 ; Pain in left knee M25.562 and Pain in right knee M25.561 [facility] [address] [address]- 8946 Dec, [facility] [id number] [place] [address] 58580- 4397 Oct, [facility] [address] [id number] [place] [address]- 7759 Oct, [facility] [place] [facility] [address] [id number] [place] [address]- 8816 November, [facility] [place] [facility] [address] [id number] [place] [address]- 4292 November, [facility] [place] [facility] [address] [id number] [place] [address]- 8273 November, [facility] [place] [facility] [address] [id number] [place] [address]- 9536 November, [facility] [place] [facility] [address] [id number] [place] [address]- 9477 November, [facility] [place] [facility] [address] [id number] [place] [address]- 8403 Aug, [facility] [place] [facility] [address] [id number] [place] [address]- 8953 Aug, [facility] [place] [facility] [address] [id number] [place] [address]- 5743 Aug, [facility] [place] [facility] [address] [id number] [place] [address]- 2578 Aug, [facility] [place] [facility] [address] [id number] [place] [address]- 8891 Jul, [facility] [place] [facility] [address] [id number] [address]- 6103 Jul, [facility] [place] [facility] [address] [id number] [place] [address]- 3474 Jun, [facility] [place] [facility] [address] [id number] [place] [address]- 1263 Jun, [facility] [place] [facility] [address] [id number] [place] [address]- 0632 Apr, [facility] [place] [facility] [address] [id number] [place] [address]- 1214 29 Apr, 2013 [facility] [address] [id number] [place] [address]- 9139 Mar, [facility] [place] [facility] [address] [id number] [place] [address]- 2196 27 Mar, 2013 [facility] [place] [facility] [address] [id number] [place] [address]- 5925 17 Mar, 2013 [facility] [place] [facility] [address] [id number] [place] [address]- 8646 Feb, [facility] [place] [facility] [address] [id number] [place] [address]- 5079 Feb, [facility] [place] [facility] [address] [id number] [place] [address]- 1093 Jan, [facility] [place] [facility] [address] [id number] [place] [address]- 0266 Jan, [facility] [place] [facility] [address] [id number] [place] [address] Jan, [facility] [place] [facility] [address] [id number] [place] [address] Jan, [facility] [place] [facility] [address] [id number] [place] [address] Jan, [facility] [place] [facility] [address] [id number] [place] [address] Jan, [facility] [place] [facility] [address] [id number] [place] [address] Dec, [facility] [place] [facility] [address] [id number] [place] [address] Dec, [facility] [place] [facility] [address] [id number] [place] [address] Dec, [facility] [place] [facility] [address] [id number] [place] [address] Dec, [facility] [address] [facility] [id number] [address] Dec, [facility] [address] [id number] [address] Dec, [facility] [address] [id number] [address] November, [facility] [address] [id number] [address] November, [facility] [address] [id number] [address] Sep, [facility] [address] [id number] [address] Aug, IMMUNIZATIONS No Known Immunizations SOCIAL HISTORY Never Assessed REASON FOR VISIT DM mgnt attempt PLAN OF CARE VITAL SIGNS MEDICATIONS Unknown [...]
--- OUTSIDE RECORDS SUMMARY | 2018-10-08 09:38 | XMS REPORT ---
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 [id number] ALLERGIES No Information ENCOUNTERS Encounter Location Date Diagnosis [place] [id number] [place] [address] 00356- 0420 Jan, [place] [address] 31967- 9910 Dec, [place] [address] 05354- 2896 Dec, Other chronic pain G89.29 ; Pain in left knee M25.562 ; Pain in right knee M25.561 and Bilateral leg edema R60.0 [place] [id number] [place] [address] 02226- 0268 Dec, Type 2 diabetes mellitus without complications E11.9 [place] [address] [address] [id number] [place] [address] 67892- 2958 Dec, [place] [id number] [place] [address] 78851- 3341 Dec, Type 2 diabetes mellitus without complications E11.9 ; 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 ; Other chronic pain G89.29 and Prophylactic antibiotic Z79.2 [place] [id number] [place] [address] 99282- 9805 November, Type 2 diabetes mellitus without complications E11.9 ; penitentiary 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.4 ; Pain in left knee M25.562 and Pain in right knee M25.561 [facility] [place] [address] [place] [address] 08314- 7306 November, [facility] [place] [address], [place] [address] 0689 November, [facility] [place] [id number] [place] [address] 16197- 9428 Oct, [facility] [place] [id number] [place] [address] 59497- 6981 Oct, [facility] [place] [id number] [place] [address] 77789- 1281 Oct, Type 2 diabetes mellitus without complications E11.9 [facility] [place] [id number] [place] [address] 11212- 5554 Sep, [facility] [place] [id number] [place] [address] 80321- 4201 Aug, Other chronic pain G89.29 ; Pain in left knee M25.562 and Pain in right knee M25.561 [facility] [place] [address] [place] [address] 05862- 8630 Aug, [facility] [place] [address], [place] [address]- 4255 Aug, [facility] [place] [address], [place] [address]- 3198 Aug, Type 2 diabetes mellitus without complications E11.9 ; 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 [address] [id number] [place] [address]- 1353 Oct, [facility] [place] [facility] [address] [id number] [place] [address]- 8159 November, [facility] [place] [facility] [address] [id number] [place] [address]- 2089 November, [facility] [place] [facility] [address] [id number] [place] [address]- 7201 November, [facility] [place] [facility] [address] [id number] [place] [address]- 6072 November, [facility] [place] [facility] [address] [id number] [place] [address]- 9677 November, [facility] [place] [facility] [address] [id number] [place] [address]- 3713 Aug, [facility] [place] [facility] [address] [id number] [place] [address]- 1844 Aug, [facility] [place] [facility] [address] [id number] [place] [address]- 5699 Aug, [facility] [place] [facility] [address] [id number] [place] [address]- 2878 Aug, [facility] [place] [facility] [address] [id number] [place] [address]- 3534 Jul, [facility] [place] [facility] [address] [id number] [address]- 6631 Jul, [facility] [place] [facility] [address] [id number] [place] [address]- 0605 Jun, [facility] [place] [facility] [address] [id number] [place] [address]- 7296 Jun, [facility] [place] [facility] [address] [id number] [place] [address]- 3066 Apr, [facility] [place] [facility] [address] [id number] [place] [address]- 7554 29 Apr, 2013 [facility] [address] [id number] [place] [address]- 3599 Mar, [facility] [place] [facility] [address] [id number] [place] [address]- 9836 27 Mar, 2013 [facility] [place] [facility] [address] [id number] [place] [address]- 4705 17 Mar, 2013 [facility] [place] [facility] [address] [id number] [place] [address]- 2379 Feb, [facility] [place] [facility] [address] [id number] [place] [address]- 7518 Feb, [facility] [place] [facility] [address] [id number] [place] [address]- 9212 Jan, [facility] [place] [facility] [address] [id number] [place] [address]- 4807 Jan, [facility] [place] [facility] [address] [id number] [place] [address]- 4415 Jan, [facility] [place] [facility] [address] [id number] [place] [address]- 6532 Jan, [facility] [place] [facility] [address] [id number] [place] [address]- 7403 Jan, [facility] [place] [facility] [address] [id number] [place] [address]- 3714 Jan, [facility] [place] [facility] [address] [id number] [place] [address]- 0458 Dec, [facility] [place] [facility] [address] [id number] [place] [address]- 5277 Dec, [facility] [place] [facility] [address] [id number] [place] [address]- 0883 Dec, [facility] [place] [facility] [address] [id number] [place] [address]- 5991 Dec, [facility] [address] [facility] [id number] [address]- 1146 Dec, [facility] [place] [id number], [place] [address]- 6466 Dec, [facility] [place] [id number], [place] [address]- 5096 November, [facility] [place] [id number], [place] [address]- 9686 November, [facility] [place] [id number], [place] [address]- 4829 Sep, [facility] [place] [id number] [address]- 1798 Aug, IMMUNIZATIONS No Known Immunizations SOCIAL HISTORY Never Assessed REASON FOR VISIT insulin pump mgnt scheduled PLAN OF CARE VITAL SIGNS MEDICATIONS Unknown [...]
--- OUTSIDE RECORDS SUMMARY | 2018-10-08 09:38 | XMS REPORT ---
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 [id number] ALLERGIES No Information ENCOUNTERS Encounter Location Date Diagnosis [place] [id number] [place] [address] 24257- 4900 Jan, [place] [id number] [place] [address] 09360- 6342 Jan, [place] [id number] [place] [address] 42658- 9025 Dec, [place] [address] 89599- 6071 Dec, Other chronic pain G89.29 ; Pain in left knee M25.562 ; Pain in right knee M25.561 and Bilateral leg edema R60.0 [place] [id number] [place] [address] 26513- 8248 Dec, Type 2 diabetes mellitus without complications E11.9 [place] [id number] [place] [address] 76370- 0453 Dec, [place] [id number] [place] [address] 79019- 6807 Dec, Type 2 diabetes mellitus without complications E11.9 ; 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 ; Other chronic pain G89.29 and Prophylactic antibiotic Z79.2 [place] [address], [place] [address]- 1502 November, Type 2 diabetes mellitus without complications E11.9 ; 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 ; Pain in left knee M25.562 and Pain in right knee M25.561 [facility] [address], [place] [address]- 3425 November, [facility] [id number] [place] [address] 86162- 7464 November, [facility] [id number] [address]- 5933 Oct, [facility] [id number] [place] [address] 31392- 2373 Oct, [facility] [address], [place] [address]- 1998 Oct, Type 2 diabetes mellitus without complications E11.9 [facility] [address], [place] [address]- 2313 Sep, [facility] [address], [place] [address]- 5772 Aug, Other chronic pain G89.29 ; Pain in left knee M25.562 and Pain in right knee M25.561 [facility] [address], [place] [address]- 9076 Aug, [facility] [address], [place] [address]- 3367 Aug, [facility] [id number], [place] [address]- 4632 Aug, Type 2 diabetes mellitus without complications E11.9 ; 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 ; Other chronic pain G89.29 ; Pain in left knee M25.562 and Pain in right knee M25.561 [facility] [address], [place] [address]- 7428 Dec, [facility] [address] [id number] [place] [address]- 9166 Oct, [facility] [place] [facility] [address] [id number] [place] [address]- 7586 Oct, [facility] [place] [facility] [address] [id number] [place] [address]- 1809 November, [facility] [place] [facility] [address] [id number] [place] [address]- 0077 November, [facility] [place] [facility] [address] [id number] [place] [address]- 9308 November, [facility] [place] [facility] [address] [id number] [place] [address]- 6125 November, [facility] [place] [facility] [address] [id number] [place] [address]- 1463 November, [facility] [place] [facility] [address] [id number] [place] [address]- 2204 Aug, [facility] [place] [facility] [address] [id number] [place] [address]- 8087 Aug, [facility] [place] [facility] [address] [id number] [place] [address]- 0288 Aug, [facility] [place] [facility] [address] [id number] [place] [address]- 0498 Aug, [facility] [place] [facility] [address] [id number] [place] [address]- 2100 Jul, [facility] [place] [facility] [address] [id number] [place] 4708 Jul, [facility] [place] [facility] [address] [id number] [place] [address]- 4471 Jun, [facility] [place] [facility] [address] [id number] [place] [address]- 7979 Jun, [facility] [place] [facility] [address] [id number] [place] [address]- 4892 Apr, [facility] [address] [id number] [place] [address]- 8123 29 Apr, 2013 [facility] [place] [facility] [address] [id number] [place] [address]- 8760 Mar, [facility] [place] [facility] [address] [id number] [place] [address]- 8503 27 Mar, 2013 [facility] [place] [facility] [address] [id number] [place] [address]- 1321 17 Mar, 2013 [facility] [place] [facility] [address] [id number] [place] [address]- 6973 Feb, [facility] [place] [facility] [address] [id number] [place] [address]- 7560 Feb, [facility] [address] [id number] [place] [address]- 9002 Jan, [facility] [place] [facility] [address] [id number] [place] [address]- 9241 Jan, [facility] [place] [facility] [address] [id number] [place] [address]- 6685 Jan, [facility] [place] [facility] [address] [id number] [place] [address]- 5684 Jan, [facility] [place] [facility] [address] [id number] [place] [address]- 9709 Jan, [facility] [place] [facility] [address] [id number] [place] [address]- 4531 Jan, [facility] [place] [facility] [address] [id number] [place] [address]- 9637 Dec, [facility] [place] [facility] [address] [id number] [place] [address]- 6558 Dec, [facility] [place] [facility] [address] [id number] [place] [address]- 6614 Dec, [facility] [id number], [place] [address]- 1286 Dec, [facility] [id number], [place] [address]- 4780 Dec, [facility] [id number], [place] [address]- 0273 Dec, [facility] [id number], [place] [address]- 4150 November, [facility] [address], [place] [address]- 3987 November, [facility] [id number], [place] [address]- 8446 Sep, [facility] [id number], [place] [address]- 6398 Aug, IMMUNIZATIONS No Known Immunizations SOCIAL HISTORY [...]
--- OUTSIDE RECORDS SUMMARY | 2018-10-08 09:39 | XMS REPORT ---
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 624867262 ALLERGIES No Information ENCOUNTERS Encounter Location Date Diagnosis [place] [id number] [place] [address] 63720- 2979 Jan, [place] [address] 56802- 1435 Dec, [place] [address] 97318- 0982 Dec, Other chronic pain G89.29 ; Pain in left knee M25.562 ; Pain in right knee M25.561 and Bilateral leg edema R60.0 [place] [id number] [place] [address] 34409- 7470 Dec, Type 2 diabetes mellitus without complications E11.9 [place] [id number] [place] [address] 48795- 3139 Dec, [place] [id number] [place] [address] 04862- 7904 Dec, Type 2 diabetes mellitus without complications E11.9 ; 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 ; Other chronic pain G89.29 and Prophylactic antibiotic Z79.2 [place] [id number] [place] [address] 50151- 9527 November, Type 2 diabetes mellitus without complications E11.9 ; penitentiary 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.4 ; Pain in left knee M25.562 and Pain in right knee M25.561 [facility] [address] [place] [address] 56132- 5645 November, [facility] [address], [place] [address]- 4356 November, [facility] [id number] [place] [address] 32942- 3364 Oct, [facility] [id number] [place] [address] 56973- 9857 Oct, [facility] [id number] [place] [address] 27253- 6589 Oct, Type 2 diabetes mellitus without complications E11.9 [facility] [id number] [place] [address] 19747- 6616 Sep, [facility] [id number] [place] [address] 00944- 3985 Aug, Other chronic pain G89.29 ; Pain in left knee M25.562 and Pain in right knee M25.561 [facility] [address] [place] [address] 90928- 9076 Aug, [facility] [address], [place] [address]- 6890 Aug, [facility] [address], [place] [address]- 9978 Aug, Type 2 diabetes mellitus without complications E11.9 ; 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 ; Other chronic pain G89.29 ; Pain in left knee M25.562 and Pain in right knee M25.561 [facility] [address], [place] [address]- 3440 Dec, [facility] [id number] [place] [address] 47557- 7322 Oct, [facility] [address] [id number] [place] [address]- 1628 Oct, [facility] [place] [facility] [address] [id number] [place] [address]- 3916 November, [facility] [place] [facility] [address] [id number] [place] [address]- 3570 November, [facility] [place] [facility] [address] [id number] [place] [address]- 3258 November, [facility] [place] [facility] [address] [id number] [place] [address]- 9248 November, [facility] [place] [facility] [address] [id number] [place] [address]- 3271 November, [facility] [place] [facility] [address] [id number] [place] [address]- 3484 Aug, [facility] [place] [facility] [address] [id number] [place] [address]- 2419 Aug, [facility] [place] [facility] [address] [id number] [place] [address]- 1622 Aug, [facility] [place] [facility] [address] [id number] [place] [address]- 3466 Aug, [facility] [place] [facility] [address] [id number] [place] [address]- 5878 Jul, [facility] [place] [facility] [address] [id number], [place] [address]- 3936 Jul, [facility] [place] [facility] [address] [id number] [place] [address]- 1755 Jun, [facility] [place] [facility] [address] [id number] [place] [address]- 7916 Jun, [facility] [place] [facility] [address] [id number] [place] [address]- 5853 Apr, [facility] [place] [facility] [address] [id number] [place] [address]- 3875 29 Apr, 2013 [facility] [address] [id number] [place] [address]- 6660 Mar, [facility] [place] [facility] [address] [id number] [place] [address]- 0256 27 Mar, 2013 [facility] [place] [facility] [address] [id number] [place] [address]- 2759 17 Mar, 2013 [facility] [place] [facility] [address] [id number] [place] [address]- 2558 Feb, [facility] [place] [facility] [address] [id number] [place] [address]- 2272 Feb, [facility] [place] [facility] [address] [id number] [place] [address]- 0105 Jan, [facility] [place] [facility] [address] [id number] [place] [address]- 6603 Jan, [facility] [place] [facility] [address] [id number] [place] [address]- 6248 Jan, [facility] [place] [facility] [address] [id number] [place] [address]- 5827 Jan, [facility] [place] [facility] [address] [id number] [place] [address]- 8062 Jan, [facility] [place] [facility] [address] [id number] [place] [address]- 8206 Jan, [facility] [place] [facility] [address] [id number] [place] [address]- 0892 Dec, [facility] [place] [facility] [address] [id number] [place] [address]- 4476 Dec, [facility] [place] [facility] [address] [id number] [place] [address]- 6105 Dec, [facility] [place] [facility] [address] [id number] [place] [address]- 6968 Dec, [facility] [address] [facility] [id number] [address]- 2546 Dec, [facility] [id number], [place] [address] 2546 Dec, [facility] [address] [id number], [place] [address] November, [facility] [address] [id number], [place] [address] November, [facility] [address] [id number], [place] [address] Sep, [facility] [address] [id number], [place] [address] Aug, IMMUNIZATIONS No Known Immunizations SOCIAL HISTORY Never Assessed REASON FOR VISIT diabetes training PLAN OF CARE VITAL SIGNS MEDICATIONS Unknown [...]
--- OUTSIDE RECORDS SUMMARY | 2018-10-08 09:39 | XMS REPORT | Continuity of Care Document ---
Author Author [facility] Address Unknown Phone Unavailable Allergies Active Description Code Type Severity Reaction Onset Reported/Identified Relationship to Patient Clinical Status Yes SULFA SULFA Unknown N/A 12/28/2017 Yes Sulfa (Sulfonamide Antibiotics) [id number] Drug Allergy Unknown N/A 2018 Medications There is no data. Problems Date [...] 796.2 Blood Pressure Isolated Elevated 09/04/2012 ATTILA HAGNE MD V07.4 taking female hormones for postmenopausal HRT 12/17/2012 401.1 ESSENTIAL HYPERTENSION BENIGN 12/17/2012 ATTILA HAGEN MD 401.1 ESSENTIAL HYPERTENSION BENIGN 01/15/2013 ATTILA HAGEN MD 682.2 SKIN ABSCESS OF THE TRUNK - GROIN 12/29/2014 Ot 793.80 01/13/2015 LAMINE DENG DO Ot V76.12 01/19/2015 LAMINE DENG DO Ot V76.12 01/04/2016 COSENS DO, LAMINE L Ot V76.12 OTH SCREEN MAMMO-MALIGN NEOPLASM OF SAMAN 01/05/2016 HUSEYIN JOSEPH Ot Z12.31 ENCNTR SCREEN MAMMOGRAM FOR MALIGNANT NE 01/20/2016 HUSEYIN JOSEPH Ot Z12.31 ENCNTR SCREEN MAMMOGRAM FOR MALIGNANT NE 01/29/2017 COSENS DO, LAMINE L Ot V76.12 OTH SCREEN MAMMO-MALIGN NEOPLASM OF SAMAN 01/29/2017 HUSEYIN JOSEPH Ot Z12.31 ENCNTR SCREEN MAMMOGRAM FOR MALIGNANT NE 02/07/2017 NARDA MUKHERJEE APRN Ot Z12.31 ENCNTR SCREEN MAMMOGRAM FOR MALIGNANT NE 02/12/2017 NARDA MUKHERJEE APRN Ot Z12.31 ENCNTR SCREEN MAMMOGRAM FOR MALIGNANT NE 12/28/2017 NARDA MUKHERJEE SPECIAL EDUCATION ASSOCIATE Ot Z12.31 ENCNTR SCREEN MAMMOGRAM FOR MALIGNANT NE 12/30/2017 SIN DO, SUKHDEV K Ot E10.10 TYPE 1 DIABETES MELLITUS WITH KETOACIDOS 12/30/2017 SIN DO, SUKHDEV K Ot 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 12/30/2017 SIN DO, SUKHDEV K Ot E10.40 TYPE 1 DIABETES MELLITUS WITH DIABETIC N 12/30/2017 SIN DO, SUKHDEV K Ot E78.5 HYPERLIPIDEMIA, UNSPECIFIED 12/30/2017 SIN DO, SUKHDEV K Ot E86.0 DEHYDRATION 12/30/2017 SIN DO, SUKHDEV K Ot I12.9 HYPERTENSIVE CHRONIC KIDNEY DISEASE W ST 12/30/2017 SIN DO, SUKHDEV K Ot M17.0 BILATERAL PRIMARY OSTEOARTHRITIS OF KNEE 12/30/2017 SIN DO, SUKHDEV K Ot N17.9 ACUTE KIDNEY FAILURE, UNSPECIFIED 12/30/2017 SIN DO, SUKHDEV K Ot N18.9 CHRONIC KIDNEY DISEASE, UNSPECIFIED 12/30/2017 SIN DO, SUKHDEV K Ot N39.0 URINARY TRACT INFECTION, SITE NOT SPECIF 12/30/2017 SIN DO, SUKHDEV K Ot R05 COUGH 12/30/2017 SIN DO, SUKHDEV K Ot Z79.4 [facility] (CURRENT) USE OF INSULIN 09/18/2018 NARDA MUKHERJEE SPECIAL EDUCATION ASSOCIATE Ot Z12.31 ENCNTR SCREEN MAMMOGRAM FOR MALIGNANT NE 09/18/2018 KOKO ALFONSO LEIDY Ot Z12.31 ENCNTR SCREEN MAMMOGRAM FOR MALIGNANT NE 09/18/2018 ROSEY VU MD, Ot B37.3 CANDIDIASIS OF VULVA AND VAGINA 09/18/2018 ROSEY VU MD Ot E03.9 HYPOTHYROIDISM, UNSPECIFIED 09/18/2018 ROSEY VU MD Ot E11.65 TYPE 2 DIABETES MELLITUS WITH HYPERGLYCE 09/18/2018 ROSEY VU MD Ot N39.0 URINARY TRACT INFECTION, SITE NOT SPECIF 09/18/2018 ROSEY VU MD Ot R82.998 OTHER ABNORMAL FINDINGS IN URINE 09/18/2018 ROSEY VU MD Ot 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 09/18/2018 ROSEY VU MD Ot Z87.891 PERSONAL HISTORY OF NICOTINE DEPENDENCE 09/18/2018 ROSEY VU MD Ot Z88.2 ALLERGY STATUS TO SULFONAMIDES STATUS 09/18/2018 ROSEY VU MD Ot Z90.710 ACQUIRED ABSENCE OF BOTH CERVIX AND UTER 09/20/2018 ROSEY VU MD Ot B37.3 CANDIDIASIS OF VULVA AND VAGINA 09/20/2018 ROSEY VU MD Ot E03.9 HYPOTHYROIDISM, UNSPECIFIED 09/20/2018 ROSEY VU MD Ot E11.65 TYPE 2 DIABETES MELLITUS WITH HYPERGLYCE 09/20/2018 ROSEY VU MD Ot N39.0 URINARY TRACT INFECTION, SITE NOT SPECIF 09/20/2018 ROSEY VU MD Ot R82.998 OTHER ABNORMAL FINDINGS IN URINE 09/20/2018 ROSEY VU MD Ot 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 09/20/2018 ROSEY VU MD Ot Z87.891 PERSONAL HISTORY OF NICOTINE DEPENDENCE 09/20/2018 ROSEY VU MD Ot Z88.2 ALLERGY STATUS TO SULFONAMIDES STATUS 09/20/2018 ROSEY VU MD Ot Z90.710 ACQUIRED ABSENCE OF BOTH CERVIX AND UTER 09/29/2018 ROSEY VU MD Ot B37.3 CANDIDIASIS OF VULVA AND VAGINA 09/29/2018 ROSEY VU MD Ot E03.9 HYPOTHYROIDISM, UNSPECIFIED 09/29/2018 ROSEY VU MD Ot E11.65 TYPE 2 DIABETES MELLITUS WITH HYPERGLYCE 09/29/2018 ROSEY VU MD, Ot N39.0 URINARY TRACT INFECTION, SITE NOT SPECIF 09/29/2018 ROSEY VU MD Ot R82.998 OTHER ABNORMAL FINDINGS IN URINE 09/29/2018 ROSEY VU MD Ot Z79.4 [facility] (CURRENT) USE OF INSULIN 09/29/2018 ROSEY VU MD Ot Z87.891 PERSONAL HISTORY OF NICOTINE DEPENDENCE 09/29/2018 ROSEY VU MD Ot Z88.2 ALLERGY STATUS TO SULFONAMIDES STATUS 09/29/2018 ROSEY VU MD Ot Z90.710 ACQUIRED ABSENCE OF BOTH CERVIX AND UTER 10/02/2018 KANWAL JAMES DO Ot Z01.818 ENCOUNTER FOR OTHER PREPROCEDURAL EXAMIN Procedures Code Description [place] [id number] A1C (IN-HOUSE) 01/15/2013 [id number] CULTURE MRSA 01/17/2013 Results Test Result Range Complete urinalysis with reflex to culture - 12/28/17 17:00 Urine color determination YELLOW NRG Urine clarity determination SLIGHTLY CLOUDY NRG Urine pH measurement by test strip 5 5-9 Specific gravity of urine by test strip 1.015 1.016- 1.022 Urine protein assay by test strip, semi-quantitative NEGATIVE NEGATIVE Urine glucose detection by automated test strip 4+ NEGATIVE Erythrocytes detection in urine sediment by light microscopy NEGATIVE NEGATIVE Urine ketones detection by automated test strip 4+ NEGATIVE Urine nitrite detection by test strip NEGATIVE NEGATIVE Urine total bilirubin detection by test strip NEGATIVE NEGATIVE Urine urobilinogen measurement by automated test strip (mass/volume) NORMAL NORMAL Urine leukocyte esterase detection by dipstick 3+ NEGATIVE Automated urine sediment erythrocyte count by microscopy (number/high power field) NONE NRG Automated urine sediment leukocyte count by microscopy (number/high power field ) [HPF] NRG Bacteria detection in urine sediment by light microscopy FEW NRG Squamous epithelial cells detection in urine sediment by light microscopy 10-25 NRG Crystals detection in urine sediment by light microscopy NONE NRG Casts detection in urine sediment by light microscopy NONE NRG Mucus detection in urine sediment by light microscopy NEGATIVE NRG Complete urinalysis with reflex to culture YES NRG Bacterial urine culture - 12/28/17 17:00 Bacterial urine culture SEE COMMEN NR COLONY COUNT . [facility] Complete blood count (CBC) with automated white blood cell (WBC) differential - 12/28/17 17:05 Blood leukocytes automated count (number/volume) 8.4 10*3/uL 4.3-11.0 Blood erythrocytes automated count (number/volume) 3.69 10*6/uL 4.35-5.85 Venous blood hemoglobin measurement (mass/volume) 11.2 g/dL 11.5-16.0 Blood hematocrit (volume fraction) 33 % 35-52 Automated erythrocyte mean corpuscular volume 89 [foz_us] 80-99 Automated erythrocyte mean corpuscular hemoglobin (mass per erythrocyte) 30 pg 25-34 Automated erythrocyte mean corpuscular hemoglobin concentration measurement ( mass/volume) 34 g/dL 32-36 Automated erythrocyte distribution width ratio 12.3 % 10.0-14.5 Automated blood platelet count (count/volume) 330 10*3/uL 130-400 Automated blood platelet mean volume measurement 10.0 [foz_us] 7.4-10.4 Automated blood neutrophils/100 leukocytes 83 % 42-75 Automated blood lymphocytes/100 leukocytes 12 % 12-44 Blood monocytes/100 leukocytes 4 % 0-12 Automated blood eosinophils/100 leukocytes 0 % 0-10 Automated blood basophils/100 leukocytes 1 % 0-10 Blood neutrophils automated count (number/volume) 7.0 10*3 1.8-7.8 Blood lymphocytes automated count (number/volume) 1.0 10*3 1.0-4.0 Blood monocytes automated count (number/volume) 0.3 10*3 0.0-1.0 Automated eosinophil count 0.0 10*3/uL 0.0-0.3 Automated blood basophil count (count/volume) 0.0 10*3/uL 0.0-0.1 Comprehensive metabolic panel - 12/28/17 17:05 Serum or plasma sodium measurement (moles/volume) 132 mmol/L 135-145 Serum or plasma potassium measurement (moles/volume) 5.4 mmol/L 3.6-5.0 Serum or plasma chloride measurement (moles/volume) 96 mmol/L 98-107 Carbon dioxide 12 mmol/L 21-32 Serum or plasma anion gap determination (moles/volume) 24 mmol/L 5-14 Serum or plasma urea nitrogen measurement (mass/volume) 38 mg/dL 7-18 Serum or plasma creatinine measurement (mass/volume) 2.11 mg/dL 0.60-1.30 Serum or plasma urea nitrogen/creatinine mass ratio 18 NRG Serum or plasma creatinine measurement with calculation of estimated glomerular filtration rate 24 NRG Serum or plasma glucose measurement (mass/volume) 770 mg/dL 70-105 Serum or plasma calcium measurement (mass/volume) 9.8 mg/dL 8.5-10.1 Serum or plasma total bilirubin measurement (mass/volume) 0.4 mg/dL 0.1-1.0 Serum or plasma alkaline phosphatase measurement (enzymatic activity/volume) 121 U/L 40-136 Serum or plasma aspartate aminotransferase measurement (enzymatic activity/ volume) 17 U/L 5-34 Serum or plasma alanine aminotransferase measurement (enzymatic activity/volume ) 28 U/L 0-55 Serum or plasma protein measurement (mass/volume) 7.0 g/dL 6.4-8.2 Serum or plasma albumin measurement (mass/volume) 4.3 g/dL 3.2-4.5 Serum or plasma troponin i.cardiac measurement (mass/volume) - 12/28/17 17:05 Serum or plasma troponin i.cardiac measurement (mass/volume) < ng/ mL <0.30 Capillary blood glucose measurement by glucometer (mass/volume) - 12/28/17 17: 27 Capillary blood glucose measurement by glucometer (mass/volume) > mg /dL 70-110 Capillary blood glucose measurement by glucometer (mass/volume) - 12/28/17 18: 40 Capillary blood glucose measurement by glucometer (mass/volume) 583 mg/dL 70-110 Methicillin resistant Staphylococcus aureus (MRSA) screening culture - 19:00 Methicillin resistant Staphylococcus aureus (MRSA) screening culture NEG NRG Capillary blood glucose measurement by glucometer (mass/volume) - 12/28/17 19: 01 Capillary blood glucose measurement by glucometer (mass/volume) > mg /dL 70-110 Whole blood basic metabolic panel - 12/28/17 19:20 Serum or plasma sodium measurement (moles/volume) 132 mmol/L 135-145 Serum or plasma potassium measurement (moles/volume) 6.2 mmol/L 3.6-5.0 Serum or plasma chloride measurement (moles/volume) 100 mmol/L 98-107 Carbon dioxide 7 mmol/L -32 Serum or plasma anion gap determination (moles/volume) 25 mmol/L 5-14 Serum or plasma urea nitrogen measurement (mass/volume) 37 mg/dL 7-18 Serum or plasma creatinine measurement (mass/volume) 2.01 mg/dL 0.60-1.30 Serum or plasma urea nitrogen/creatinine mass ratio 18 NRG Serum or plasma creatinine measurement with calculation of estimated glomerular filtration rate 25 NRG Serum or plasma glucose measurement (mass/volume) 737 mg/dL 70-105 Serum or plasma calcium measurement (mass/volume) 9.3 mg/dL 8.5-10.1 Whole blood basic metabolic panel - 12/28/17 20:55 Serum or plasma sodium measurement (moles/volume) 134 mmol/L 135-145 Serum or plasma potassium measurement (moles/volume) 4.7 mmol/L 3.6-5.0 Serum or plasma chloride measurement (moles/volume) 103 mmol/L 98-107 Carbon dioxide 7 mmol/L -32 Serum or plasma anion gap determination (moles/volume) 24 mmol/L 5-14 Serum or plasma urea nitrogen measurement (mass/volume) 39 mg/dL 7-18 Serum or plasma creatinine measurement (mass/volume) 2.05 mg/dL 0.60-1.30 Serum or plasma urea nitrogen/creatinine mass ratio 19 NRG Serum or plasma creatinine measurement with calculation of estimated glomerular filtration rate 25 NRG Serum or plasma glucose measurement (mass/volume) 637 mg/dL 70-105 Serum or plasma calcium measurement (mass/volume) 8.7 mg/dL 8.5-10.1 Capillary blood glucose measurement by glucometer (mass/volume) - 12/28/17 21: 05 Capillary blood glucose measurement by glucometer (mass/volume) > mg /dL 70-110 Capillary blood glucose measurement by glucometer (mass/volume) - 12/28/17 22: 00 Capillary blood glucose measurement by glucometer (mass/volume) 559 mg/dL 70-110 Capillary blood glucose measurement by glucometer (mass/volume) - 12/28/17 23: 02 Capillary blood glucose measurement by glucometer (mass/volume) 502 mg/dL 70-110 Capillary blood glucose measurement by glucometer (mass/volume) - 12/28/17 23: 58 Capillary blood glucose measurement by glucometer (mass/volume) 476 mg/dL 70-110 Capillary blood glucose measurement by glucometer (mass/volume) - 12/29/17 01: 05 Capillary blood glucose measurement by glucometer (mass/volume) 418 mg/dL 70-110 Complete blood count (CBC) with automated white blood cell (WBC) differential - 12/29/17 01:21 Blood leukocytes automated count (number/volume) 8.6 10*3/uL 4.3-11.0 Blood erythrocytes automated count (number/volume) 3.16 10*6/uL 4.35-5.85 Venous blood hemoglobin measurement (mass/volume) 9.6 g/dL 11.5-16.0 Blood hematocrit (volume fraction) 28 % 35-52 Automated erythrocyte mean corpuscular volume 88 [foz_us] 80-99 Automated erythrocyte mean corpuscular hemoglobin (mass per erythrocyte) 30 pg 25-34 Automated erythrocyte mean corpuscular hemoglobin concentration measurement ( mass/volume) 34 g/dL 32-36 Automated erythrocyte distribution width ratio 12.1 % 10.0-14.5 Automated blood platelet count (count/volume) 285 10*3/uL 130-400 Automated blood platelet mean volume measurement 9.1 [foz_us] 7.4-10.4 Automated blood neutrophils/100 leukocytes 69 % 42-75 Automated blood lymphocytes/100 leukocytes 23 % 12-44 Blood monocytes/100 leukocytes 8 % 0-12 Automated blood eosinophils/100 leukocytes 0 % 0-10 Automated blood basophils/100 leukocytes 0 % 0-10 Blood neutrophils automated count (number/volume) 5.9 10*3 1.8-7.8 Blood lymphocytes automated count (number/volume) 2.0 10*3 1.0-4.0 Blood monocytes automated count (number/volume) 0.7 10*3 0.0-1.0 Automated eosinophil count 0.0 10*3/uL 0.0-0.3 Automated blood basophil count (count/volume) 0.0 10*3/uL 0.0-0.1 Whole blood basic metabolic panel - 12/29/17 01:21 Serum or plasma sodium measurement (moles/volume) 136 mmol/L 135-145 Serum or plasma potassium measurement (moles/volume) 4.5 mmol/L 3.6-5.0 Serum or plasma chloride measurement (moles/volume) 108 mmol/L 98-107 Carbon dioxide 14 mmol/L 21-32 Serum or plasma anion gap determination (moles/volume) 14 mmol/L 5-14 Serum or plasma urea nitrogen measurement (mass/volume) 39 mg/dL 7-18 Serum or plasma creatinine measurement (mass/volume) 1.95 mg/dL 0.60-1.30 Serum or plasma urea nitrogen/creatinine mass ratio 20 NRG Serum or plasma creatinine measurement with calculation of estimated glomerular filtration rate 26 NRG Serum or plasma glucose measurement (mass/volume) 379 mg/dL 70-105 Serum or plasma calcium measurement (mass/volume) 8.5 mg/dL 8.5-10.1 Serum or plasma phosphate measurement (mass/volume) - 12/29/17 01:21 Serum or plasma phosphate measurement (mass/volume) 2.9 mg/dL 2.3-4.7 Magnesium - 12/29/17 01:21 Magnesium 2.2 mg/dL 1.8-2.4 Capillary blood glucose measurement by glucometer (mass/volume) - 12/29/17 02: 01 Capillary blood glucose measurement by glucometer (mass/volume) 374 mg/dL 70-110 Capillary blood glucose measurement by glucometer (mass/volume) - 12/29/17 02: 58 Capillary blood glucose measurement by glucometer (mass/volume) 368 mg/dL 70-110 Capillary blood glucose measurement by glucometer (mass/volume) - 12/29/17 04: 04 Capillary blood glucose measurement by glucometer (mass/volume) 274 mg/dL 70-110 Capillary blood glucose measurement by glucometer (mass/volume) - 12/29/17 04: 50 Capillary blood glucose measurement by glucometer (mass/volume) 244 mg/dL 70-110 Capillary blood glucose measurement by glucometer (mass/volume) - 12/29/17 06: 09 Capillary blood glucose measurement by glucometer (mass/volume) 175 mg/dL 70-110 Capillary blood glucose measurement by glucometer (mass/volume) - 12/29/17 06: 53 Capillary blood glucose measurement by glucometer (mass/volume) 140 mg/dL 70-110 Whole blood basic metabolic panel - 12/29/17 07:05 Serum or plasma sodium measurement (moles/volume) 139 mmol/L 135-145 Serum or plasma potassium measurement (moles/volume) 3.7 mmol/L 3.6-5.0 Serum or plasma chloride measurement (moles/volume) 112 mmol/L 98-107 Carbon dioxide 17 mmol/L 21-32 Serum or plasma anion gap determination (moles/volume) 10 mmol/L 5-14 Serum or plasma urea nitrogen measurement (mass/volume) 33 mg/dL 7-18 Serum or plasma creatinine measurement (mass/volume) 1.41 mg/dL 0.60-1.30 Serum or plasma urea nitrogen/creatinine mass ratio 23 NRG Serum or plasma creatinine measurement with calculation of estimated glomerular filtration rate 38 NRG Serum or plasma glucose measurement (mass/volume) 120 mg/dL 70-105 Serum or plasma calcium measurement (mass/volume) 8.5 mg/dL 8.5-10.1 Hemoglobin A1c - 12/29/17 07:05 Blood hemoglobin A1C measurement (mass/volume) 12.8 % 4.0 -5.6 MEAN BLOOD GLUCOSE 321 % <=126 Capillary blood glucose measurement by glucometer (mass/volume) - 12/29/17 07: 32 Capillary blood glucose measurement by glucometer (mass/volume) 110 mg/dL 70-110 Capillary blood glucose measurement by glucometer (mass/volume) - 12/29/17 08: 16 Capillary blood glucose measurement by glucometer (mass/volume) 100 mg/dL 70-110 Capillary blood glucose measurement by glucometer (mass/volume) - 12/29/17 08: 47 Capillary blood glucose measurement by glucometer (mass/volume) 90 mg/dL 70-110 Capillary blood glucose measurement by glucometer (mass/volume) - 12/29/17 09: 11 Capillary blood glucose measurement by glucometer (mass/volume) 110 mg/dL 70-110 Capillary blood glucose measurement by glucometer (mass/volume) - 12/29/17 10: 05 Capillary blood glucose measurement by glucometer (mass/volume) 158 mg/dL 70-110 Whole blood basic metabolic panel - 12/29/17 11:00 Serum or plasma sodium measurement (moles/volume) 138 mmol/L 135-145 Serum or plasma potassium measurement (moles/volume) 3.9 mmol/L 3.6-5.0 Serum or plasma chloride measurement (moles/volume) 108 mmol/L 98-107 Carbon dioxide 18 mmol/L 21-32 Serum or plasma anion gap determination (moles/volume) 12 mmol/L 5-14 Serum or plasma urea nitrogen measurement (mass/volume) 31 mg/dL 7-18 Serum or plasma creatinine measurement (mass/volume) 1.34 mg/dL 0.60-1.30 Serum or plasma urea nitrogen/creatinine mass ratio 23 NRG Serum or plasma creatinine measurement with calculation of estimated glomerular filtration rate 40 NRG Serum or plasma glucose measurement (mass/volume) 177 mg/dL 70-105 Serum or plasma calcium measurement (mass/volume) 8.5 mg/dL 8.5-10.1 Capillary blood glucose measurement by glucometer (mass/volume) - 12/29/17 11: 28 Capillary blood glucose measurement by glucometer (mass/volume) 162 mg/dL 70-110 Capillary blood glucose measurement by glucometer (mass/volume) - 12/29/17 11: 58 Capillary blood glucose measurement by glucometer (mass/volume) 153 mg/dL 70-110 Capillary blood glucose measurement by glucometer (mass/volume) - 12/29/17 13: 58 Capillary blood glucose measurement by glucometer (mass/volume) 149 mg/dL 70-110 Complete blood count (CBC) with automated white blood cell (WBC) differential - 12/30/17 04:19 Blood leukocytes automated count (number/volume) 7.2 10*3/uL 4.3-11.0 Blood erythrocytes automated count (number/volume) 3.59 10*6/uL 4.35-5.85 Venous blood hemoglobin measurement (mass/volume) 10.6 g/dL 11.5-16.0 Blood hematocrit (volume fraction) 31 % 35-52 Automated erythrocyte mean corpuscular volume 87 [foz_us] 80-99 Automated erythrocyte mean corpuscular hemoglobin (mass per erythrocyte) 30 pg 25-34 Automated erythrocyte mean corpuscular hemoglobin concentration measurement ( mass/volume) 34 g/dL 32-36 Automated erythrocyte distribution width ratio 13.0 % 10.0-14.5 Automated blood platelet count (count/volume) 278 10*3/uL 130-400 Automated blood platelet mean volume measurement 9.6 [foz_us] 7.4-10.4 Automated blood neutrophils/100 leukocytes 59 % 42-75 Automated blood lymphocytes/100 leukocytes 30 % 12-44 Blood monocytes/100 leukocytes 9 % 0-12 Automated blood eosinophils/100 leukocytes 2 % 0-10 Automated blood basophils/100 leukocytes 0 % 0-10 Blood neutrophils automated count (number/volume) 4.2 10*3 1.8-7.8 Blood lymphocytes automated count (number/volume) 2.2 10*3 1.0-4.0 Blood monocytes automated count (number/volume) 0.6 10*3 0.0-1.0 Automated eosinophil count 0.1 10*3/uL 0.0-0.3 Automated blood basophil count (count/volume) 0.0 10*3/uL 0.0-0.1 Whole blood basic metabolic panel - 12/30/17 04:19 Serum or plasma sodium measurement (moles/volume) 144 mmol/L 135-145 Serum or plasma potassium measurement (moles/volume) 3.7 mmol/L 3.6-5.0 Serum or plasma chloride measurement (moles/volume) 115 mmol/L 98-107 Carbon dioxide 21 mmol/L 21-32 Serum or plasma anion gap determination (moles/volume) 8 mmol/L 5-14 Serum or plasma urea nitrogen measurement (mass/volume) 21 mg/dL 7-18 Serum or plasma creatinine measurement (mass/volume) 0.88 mg/dL 0.60-1.30 Serum or plasma urea nitrogen/creatinine mass ratio 24 NRG Serum or plasma creatinine measurement with calculation of estimated glomerular filtration rate > NRG Serum or plasma glucose measurement (mass/volume) 100 mg/dL 70-105 Serum or plasma calcium measurement (mass/volume) 8.8 mg/dL 8.5-10.1 Serum or plasma phosphate measurement (mass/volume) - 12/30/17 04:19 Serum or plasma phosphate measurement (mass/volume) 3.2 mg/dL 2.3-4.7 Magnesium - 12/30/17 04:19 Magnesium 2.1 mg/dL 1.8-2.4 Capillary blood glucose measurement by glucometer (mass/volume) - 09/18/18 07: 22 Capillary blood glucose measurement by glucometer (mass/volume) 251 mg/dL 70-110 Complete blood count (CBC) with automated white blood cell (WBC) differential - 09/18/18 07:25 Blood leukocytes automated count (number/volume) 9.2 10*3/uL 4.3-11.0 Blood erythrocytes automated count (number/volume) 3.89 10*6/uL 4.35-5.85 Venous blood hemoglobin measurement (mass/volume) 11.3 g/dL 11.5-16.0 Blood hematocrit (volume fraction) 35 % 35-52 Automated erythrocyte mean corpuscular volume 91 [foz_us] 80-99 Automated erythrocyte mean corpuscular hemoglobin (mass per erythrocyte) 29 pg 25-34 Automated erythrocyte mean corpuscular hemoglobin concentration measurement ( mass/volume) 32 g/dL 32-36 Automated erythrocyte distribution width ratio 13.6 % 10.0-14.5 Automated blood platelet count (count/volume) 234 10*3/uL 130-400 Automated blood platelet mean volume measurement 9.4 [foz_us] 7.4-10.4 Automated blood neutrophils/100 leukocytes 79 % 42-75 Automated blood lymphocytes/100 leukocytes 12 % 12-44 Blood monocytes/100 leukocytes 10 % 0-12 Automated blood eosinophils/100 leukocytes 0 % 0-10 Automated blood basophils/100 leukocytes 0 % 0-10 Blood neutrophils automated count (number/volume) 7.2 10*3 1.8-7.8 Blood lymphocytes automated count (number/volume) 1.1 10*3 1.0-4.0 Blood monocytes automated count (number/volume) 0.9 10*3 0.0-1.0 Automated eosinophil count 0.0 10*3/uL 0.0-0.3 Automated blood basophil count (count/volume) 0.0 10*3/uL 0.0-0.1 Influenza virus A and B antigen detection - 09/18/18 07:25 FLU RESULT NEGATIVE FOR INFLUENZA A AND B ANTIGENS BY IA [facility] Comprehensive metabolic panel - 09/18/18 07:25 Serum or plasma sodium measurement (moles/volume) 134 mmol/L 135-145 Serum or plasma potassium measurement (moles/volume) 4.3 mmol/L 3.6-5.0 Serum or plasma chloride measurement (moles/volume) 103 mmol/L 98-107 Carbon dioxide 23 mmol/L 21-32 Serum or plasma anion gap determination (moles/volume) 8 mmol/L 5-14 Serum or plasma urea nitrogen measurement (mass/volume) 15 mg/dL 7-18 Serum or plasma creatinine measurement (mass/volume) 1.06 mg/dL 0.60-1.30 Serum or plasma urea nitrogen/creatinine mass ratio 14 [facility] Serum or plasma creatinine measurement with calculation of estimated glomerular filtration rate 53 NRG Serum or plasma glucose measurement (mass/volume) 251 mg/dL 70-105 Serum or plasma calcium measurement (mass/volume) 9.7 mg/dL 8.5-10.1 Serum or plasma total bilirubin measurement (mass/volume) 0.5 mg/dL 0.1-1.0 Serum or plasma alkaline phosphatase measurement (enzymatic activity/volume) 109 U/L 40-136 Serum or plasma aspartate aminotransferase measurement (enzymatic activity/ volume) 16 U/L 5-34 Serum or plasma alanine aminotransferase measurement (enzymatic activity/volume ) 21 U/L 0-55 Serum or plasma protein measurement (mass/volume) 6.6 g/dL 6.4-8.2 Serum or plasma albumin measurement (mass/volume) 4.0 g/dL 3.2-4.5 CALCIUM CORRECTED 9.7 mg/dL 8.5-10.1 Serum or plasma phosphate measurement (mass/volume) - 09/18/18 07:25 Serum or plasma phosphate measurement (mass/volume) 3.2 mg/dL 2.3-4.7 Magnesium - 09/18/18 07:25 Magnesium 1.6 mg/dL 1.8-2.4 Complete urinalysis with reflex to culture - 09/18/18 07:27 Urine color determination YELLOW NRG Urine clarity determination CLOUDY NRG Urine pH measurement by test strip 6 5-9 Specific gravity of urine by test strip 1.010 1.016- 1.022 Urine protein assay by test strip, semi-quantitative 2+ NEGATIVE Urine glucose detection by automated test strip 3+ NEGATIVE Erythrocytes detection in urine sediment by light microscopy 2+ NEGATIVE Urine ketones detection by automated test strip 1+ NEGATIVE Urine nitrite detection by test strip NEGATIVE NEGATIVE Urine total bilirubin detection by test strip NEGATIVE NEGATIVE Urine urobilinogen measurement by automated test strip (mass/volume) NORMAL NORMAL Urine leukocyte esterase detection by dipstick 3+ NEGATIVE Automated urine sediment erythrocyte count by microscopy (number/high power field) [HPF] NRG Automated urine sediment leukocyte count by microscopy (number/high power field ) [HPF] NRG Bacteria detection in urine sediment by light microscopy FEW NRG Squamous epithelial cells detection in urine sediment by light microscopy 10-25 NRG Crystals detection in urine sediment by light microscopy NONE NRG Casts detection in urine sediment by light microscopy NONE NRG Mucus detection in urine sediment by light microscopy SMALL NRG Complete urinalysis with reflex to culture YES NRG Yeast detection in urine sediment by light microscopy FEW NRG Bacterial urine culture - 09/18/18 07:27 Bacterial urine culture SEE REPORT NRG COLONY COUNT . NRG Encounters ACCT No. Visit Date/Time Discharge Status Pt. Type Provider Facility Loc./Unit Complaint [id number] 01/15/2013 16:13:00 01/15/2013 23:59:59 CLS Outpatient ATTILA HAGEN MD [id number] 09/04/2012 16:16:00 09/04/2012 23:59:59 CLS Outpatient JOSE HARRIS MD [id number] 12/17/2012 16:11:00 Document Registration [id number] 10/01/2018 05:54:00 10/01/2018 16:00:00 DIS Outpatient KANWAL JAMES DO [facility] PREOP COLONOSCOPY [id number] 09/18/2018 06:29:00 09/18/2018 10:16:00 DIS Outpatient ROSEY VU MD [facility] ER DIABETES PROBLEMS, KETO ACIDOSIS [id number] 01/28/2018 12:45:00 01/28/2018 23:59:59 CLS Outpatient KOKO ALFONSO [employer]UC[employer] ASSOCIATE [facility] RAD SCREENING [id number] 12/28/2017 18:04:00 12/30/2017 11:47:00 DIS Inpatient SUKHDEV SIN DO [facility] 4TH DKA,UTI [id number] 02/01/2017 15:17:00 02/01/2017 23:59:59 CLS Outpatient NARDA MUKHERJEE [employer]UC[employer] ASSOCIATE [facility] RAD SCREENING [id number] 01/04/2016 13:21:00 01/04/2016 23:59:59 CLS Outpatient HUSEYIN JOSEPH [facility] RAD SCREENING [id number] 12/29/2014 15:09:00 12/29/2014 23:59:59 CLS Outpatient LAMINE DENG DO [facility] RAD SCREENING [id number] 10/08/2018 11:40:00 PEN Preadmit KANWAL JAMES DO [facility] ENDO SCREENING [id number] 04/03/2011 14:59:00 Document Registration [id number] 03/17/2011 16:46:00 Document Registration
[2018-10-08 09:40] VITALS: BP 170/81
[2018-10-08] MEDS ORDERED: LACTATED RINGERS 1,000 ML IV ONE (10:02)
[2018-10-08] MEDS ORDERED: LACTATED RINGERS 1,000 ML IV STA (10:04)
--- NOTE | 2018-10-08 10:04 | Progress Note-Pre Operative ---
Pre-Operative Progress Note H&P Reviewed The H&P was reviewed, patient examined and no changes noted. Date Seen by Provider: Oct 08, 2018 Time Seen by Provider: 10:03 Date H&P Reviewed: Oct 08, 2018 Time H&P Reviewed: 10:03 Pre-Operative Diagnosis: s creening colonoscopy KANWAL JAMES DO Oct 08, 2018 10:03
[2018-10-08] MEDS ORDERED: PROPOFOL INJECTION 50 ML IV ONE (10:37)
[2018-10-08] MEDS ORDERED: MIDAZOLAM 2 MG/2 ML (VERSED) VIAL ONE (10:37)
[2018-10-08] MEDS ORDERED: LOSARTAN-HCTZ PO (10:48)
[2018-10-08] MEDS ORDERED: ATOR20TA66 PO (10:48)
[2018-10-08] MEDS ORDERED: BUPR300T51 PO (10:48)
[2018-10-08] MEDS ORDERED: proPOfol 200 MG/20 ML (DIPRIVAN) VIAL IV ONE (11:16)
--- NOTE | 2018-10-08 11:27 | Discharge Inst-Simple/Standard ---
Discharge Inst-Standard Discharge Medications New, Converted or Re-Newed RX: RX on Chart Patient Instructions/Follow Up Plan of Care/Instructions/FU: repeat colonoscopy in 10 years unless family hx colon cancer or personal hx polyps then 5 years. any issues before that be seen at that time. Activity as Tolerated: Yes Discharge Diet: Regular Diet KANWAL JAMES DO Oct 08, 2018 11:27
--- NOTE | 2018-10-08 11:28 | Progress Note-Post Operative ---
Post-Operative Progess Note Surgeon (s)/Head Of Geography (s) Surgeon KANWAL JAMES DO Head Of Geography: na Pre-Operative Diagnosis s creening colonoscopy Post-Operative Diagnosis normal colon Procedure & Operative Findings Date of Procedure 10/08/18 Procedure Performed/Findings colonoscopy Anesthesia Type per poultry cleaner Estimated Blood Loss Estimated blood loss (mL): none Specimens/Packing Specimens Removed na KANWAL JAMES DO Oct 08, 2018 11:27
[2018-10-08 11:35] VITALS: BP 142/79
[2018-10-08 12:05] VITALS: BP 155/70
[2018-10-08 12:20] VITALS: BP 155/70
--- NOTE | 2018-10-08 12:20 | NUR ---
HAS BEEN ALERT, CHEERFUL, TAKING PO FLUIDS WITHOUT PROBLEM AND DENIES COMPLAINTS THROUGHOUT RECOVERY. REQUESTING DISMISSAL.
--- NOTE | 2018-10-08 13:35 | Anesthesia-General Post-Op ---
MAC Patient Condition Mental Status/LOC: Same as Preop Cardiovascular: Satisfactory Nausea/Vomiting: Absent Respiratory: Satisfactory Pain: Controlled Complications: Absent Post Op Complications Complications None Follow Up Care/Instructions Patient Instructions None needed. Anesthesiology Discharge Order Discharge Order Patient is doing well, no complaints, stable vital signs, no apparent adverse anesthesia problems. No complications reported per nursing. ULICES DALTON CRNA Oct 08, 2018 13:35
--- NOTE | 2018-10-08 15:12 | OPERATIVE REPORT ---
DATE OF SERVICE: 10/08/2018 PREOPERATIVE DIAGNOSIS: Screening colonoscopy. POSTOPERATIVE DIAGNOSIS: Normal colon. PROCEDURE: Colonoscopy. SURGEON: Kanwal Chung DO ANESTHESIA: Per LEHR OPERATOR. ESTIMATED BLOOD LOSS: None. COMPLICATIONS: None. INDICATIONS: The patient is a 62-year-old female with a need for screening colonoscopy. She understands the risks and benefits of procedure and wished to proceed with procedure. Consent was signed on the chart. DESCRIPTION OF PROCEDURE: The patient was taken to the endoscopy suite, placed in left lateral recumbent position. Timeout was performed. Digital rectal exam was performed. There were no palpable polyps, masses or ulcerations. Scope was inserted into the rectum and advanced all the way to the cecum with minimal difficulty. Prep was adequate with irrigation and suction. Scope was then slowly retracted back. No polyps, masses or ulcerations in the cecum, ascending, transverse, descending and sigmoid colon. Once in the rectum, scope was also retroflexed noting no other pathology. Scope was returned to its normal position, slowly withdrawn until completely removed. The patient tolerated the procedure well without any complications. She was taken to recovery room in stable condition. RECOMMENDATION: This patient will need repeat colonoscopy in 10 years unless family history of colon cancer or personal history of colon polyps, which would then be 5 years. If any issues before that, then will be seen at that time. Job ID: [id number] DocumentID: [id number] Dictated Date: 10/08/2018 11:31:44 Drier Unloader Date: 10/08/2018 15:11:56 Dictated By: KANWAL CHUNG DO
== END 2018-10-08 12:20 | disposition home or self-care (01) ==
LOC: ENDO 09:31
PROVIDERS: ATTEND Surgery
DX: Z12.11 Encounter for screening for malignant neoplasm of colon (principal); E11.9 Type 2 diabetes mellitus without complications; Z79.4 Long term (current) use of insulin; Z79.899 Other long term (current) drug therapy; Z87.891 Personal history of nicotine dependence
CPT/HCPCS: 82962

== ENCOUNTER → 2020-07-22 | Outpatient (CLI) | payer OTHER ==
[~2020-07-22] MED LIST changes: +ATOR20TA66 PO; -BUPR300T51 PO; +BUPR300T98 PO; +CATHETER FLUSH 10 ML SYR IV PRN; +HOLD METFORMIN - RECEIVED CONTRAST 20 ML VIAL IV SCH; +IOHEXOL 350 MG/ML 100 ML (OMNIPAQUE 350) VIAL IV ONE; +LOSARTAN-HCTZ PO; +NS 100 ML (IVPB) BAG IV ONE
[2020-07-22 15:05] LABS: CREATININE SERUM 1.18 MG/DL (0.60-1.30)
--- NOTE | 2020-07-22 16:00 | Diagnostic Imaging Report ---
EXAMINATION: CT angiography of the abdomen. TECHNIQUE: After intravenous administration of contrast, thin section axial CT angiography of the abdomen and were obtained. 3D MIP reformats were provided. All CT scans use one or more of the following dose optimizing techniques: automated exposure control, MA and/or KvP adjustment based on a patient size and exam type, or iterative reconstruction. HISTORY: Aortic mass COMPARISON: None available. FINDINGS: The aorta demonstrates a few vascular calcifications without aneurysm, dissection, or significant stenosis. The origin of the celiac, SMA, renal arteries, and KARMEN are normal. Limited views of the lower thorax demonstrate bibasilar dependent atelectasis. There is a subcentimeter hepatic hypodensity which is too small to characterize and requires no followup. Liver is otherwise unremarkable. There is no biliary ductal dilation. Gallbladder is normal. Pancreas is normal. Spleen is normal. Adrenal glands are normal. The kidneys are normal. There is no hydronephrosis. The stomach and visualized small bowel are unremarkable without obstruction. No free fluid or air. No abdominal lymphadenopathy. No intra-abdominal mass is seen. Degenerative changes of the spine without suspicious osseous lesion or compression fracture. There is a small midline fat-containing hernia through a 0.6 cm defect on (series 2 image 74). IMPRESSION: 1. Unremarkable appearance of the aorta and branching vessels without aneurysm, dissection, or stenosis. 2. No focal abdominal mass is appreciated. 3. There is a small fat-containing midline abdominal wall hernia 3.06 cm defect. Dictated by: Dictated on workstation # [id number]
== END ==
LOC: RAD 14:25
PROVIDERS: ATTEND Nurse Practitioner Family
DX: I77.89 Other specified disorders of arteries and arterioles (principal); I71.2 Thoracic aortic aneurysm, without rupture; I71.4 Abdominal aortic aneurysm, without rupture; M54.6 Pain in thoracic spine; K43.9 Ventral hernia without obstruction or gangrene
CPT/HCPCS: 36415; 74175; 82565; 84520

== ENCOUNTER → 2021-01-21 | Outpatient (CLI) | payer OTHER ==
[~2021-01-21] MED LIST changes: -CATHETER FLUSH 10 ML SYR IV PRN; -HOLD METFORMIN - RECEIVED CONTRAST 20 ML VIAL IV SCH; -IOHEXOL 350 MG/ML 100 ML (OMNIPAQUE 350) VIAL IV ONE; -NS 100 ML (IVPB) BAG IV ONE
== END ==
LOC: CARD 15:00
PROVIDERS: ATTEND Internal Medicine Cardiovascular Disease
DX: I51.7 Cardiomegaly (principal); I35.8 Other nonrheumatic aortic valve disorders
CPT/HCPCS: 93306

== ENCOUNTER 2021-07-13 05:37 | Outpatient (CLI) | payer OTHER ==
[~2021-07-13] VITALS: Ht 171 cm; Wt 90.0 kg
[~2021-07-13 05:37] MED LIST changes: -DOXY100C2 PO; +DOXY100C5 PO
[2021-07-18] MEDS ORDERED: RT-ALBUINH IH (10:48)
[2021-07-18] MEDS ORDERED: DAPA10TA PO (10:48)
[2021-07-18] MEDS ORDERED: ZOLP5TAB PO (10:48)
[2021-07-18] MEDS ORDERED: GBPN600T PO (10:48)
== END 2021-07-18 10:49 | disposition home or self-care (01) ==
LOC: PREOP 05:37
PROVIDERS: ATTEND Specialist
DX: Z01.818 Encounter for other preprocedural examination (principal)

== ENCOUNTER 2021-07-22 07:35 | Day surgery (SDC) | payer OTHER ==
[~2021-07-22] VITALS: Ht 171 cm; Wt 90.0 kg
[~2021-07-22 07:35] MED LIST changes: +DAPA10TA PO; +GBPN600T PO; +RT-ALBUINH IH; +ZOLP5TAB PO
[2021-07-22] MEDS ORDERED: POVIDONE (BETADINE) OPHTH SOLN 5% 30 ML OP ONE (07:45)
[2021-07-22] MEDS ORDERED: MOXIFLOXACIN OPHTH SOLN 5 MG/ML 0.3 ML SYRINGE OP ONE (07:45)
[2021-07-22] MEDS ORDERED: LIDOCAINE PF 1% 2 ML VIAL IR PRN (07:45)
[2021-07-22] MEDS ORDERED: TIMOLOL MALEATE 0.5% 5 ML (TIMOPTIC) BTL OU PRN (07:45)
[2021-07-22] MEDS: TETRACAINE 0.5% OPHTH SOLN 4 ML BTL (SINGLE DOSE ONLY) OU PRN ×4 (08:05→08:22)
[2021-07-22] MEDS: PHENYLEPHRINE 10% OPHTH (NEO-SYN) 5 ML BTL OU SCH ×3 (08:11→08:22)
[2021-07-22] MEDS: TROPICAMIDE 1% OPH SOLN (MYDRIACYL) 15 ML BTL OP SCH ×3 (08:11→08:22)
[2021-07-22] MEDS ORDERED: LEVO100T7 PO (08:13)
[2021-07-22] MEDS ORDERED: LOSA1TAB20 PO (08:13)
[2021-07-22] MEDS ORDERED: METF-399 PO (08:14)
[2021-07-22] MEDS ORDERED: ATOR40TA70 PO (08:14)
[2021-07-22] MEDS ORDERED: MULT-974 PO (08:14)
[2021-07-22] MEDS ORDERED: BLAC540C4 PO (08:15)
[2021-07-22 08:20] VITALS: BP 142/98
[2021-07-22] MEDS ORDERED: MIDAZOLAM 2 MG/2 ML (VERSED) VIAL ONE (08:46)
--- NOTE | 2021-07-22 08:50 | Ophthalmologist Pre-Op Note ---
Pre-Operative Progress Note H&P Reviewed The H&P was reviewed, patient examined and no changes noted. Date H&P Reviewed: Jul 22, 2021 Time H&P Reviewed: 08:49 Pre-Op Dx Cataract, Right Eye RANJIT RIGGS MD Jul 22, 2021 08:50
--- NOTE | 2021-07-22 09:13 | Ophthalmology Operative Report ---
Cataract removal/placement IOL PREOPERATIVE DIAGNOSIS: Cataract Right Eye POSTOPERATIVE DIAGNOSIS: Cataract Right Eye PROCEDURE: Cataract removal and placement of posterior chamber implant, right eye SURGEON: Kali Riggs ANESTHESIA: Topical with sedation COMPLICATIONS: None ESTIMATED BLOOD LOSS: Minimal DESCRIPTION OF PROCEDURE: After proper informed consent was obtained, the patient, a 65 female, was taken to the Operating Room and the right eye was anesthetized with tetracaine. The right eye was then prepped and draped in the usual manner. A wire lid speculum was placed. A paracentesis was made at the left hand position. Preservative free lidocaine was injected into the anterior chamber followed by viscoelastic. A clear corneal incision was made in the temporal position. A capsulorrhexis was preformed and the central nuclear and cortical material were removed. The posterior capsule was polished and Boubacar 19.5 AU00T0 IOL was placed into the capsular bag. The residual viscoelastic was aspirated and balanced saline solution was injected into the anterior chamber. Moxifloxacin was injected into the anterior chamber. The wound was checked and found to be water tight. The patient tolerated the procedure well without complications. KALI RIGGS MD Jul 22, 2021 09:13
[2021-07-22 09:15] VITALS: BP 133/73
--- NOTE | 2021-07-22 11:29 | Anesthesia-General Post-Op ---
MAC Patient Condition Mental Status/LOC: Same as Preop Cardiovascular: Satisfactory Nausea/Vomiting: Absent Respiratory: Satisfactory Pain: Controlled Complications: Absent Post Op Complications Complications None Follow Up Care/Instructions Patient Instructions None needed. Anesthesiology Discharge Order Discharge Order Patient is doing well, no complaints, stable vital signs, no apparent adverse anesthesia problems. No complications reported per nursing. JEFFY HU CRNA Jul 22, 2021 11:29
== END 2021-07-22 09:17 | disposition home or self-care (01) ==
LOC: SDC 07:35
PROVIDERS: ATTEND Specialist
DX: E11.36 Type 2 diabetes mellitus with diabetic cataract (principal); H25.9 Unspecified age-related cataract; E11.40 Type 2 diabetes mellitus with diabetic neuropathy, unspecified; Z79.4 Long term (current) use of insulin; Z79.84 Long term (current) use of oral hypoglycemic drugs
CPT/HCPCS: 66984; V2632

== ENCOUNTER → 2021-08-03 | Outpatient (CLI) | payer OTHER ==
[~2021-08-03] MED LIST changes: +BLAC540C4 PO; +LEVO100T7 PO; +MULT-974 PO
--- NOTE | 2021-08-03 16:41 | Diagnostic Imaging Report ---
PROCEDURE: US Renal/Bladder. TECHNIQUE: Multiple Real-time grayscale images were obtained over the kidneys in various projections bilaterally. INDICATION: Stage III chronic kidney disease. COMPARISON: None. FINDINGS: Right: The right kidney measures 11.0 cm in length. Increased echogenicity is seen in the cortex of the right kidney with normal thickness. There is no evidence of calculi, solid focal mass, or hydronephrosis. No perinephric fluid collections are identified. Left: The left kidney measures 9.9 cm in length. Renal cortical thickness is normal with increased cortical echogenicity. There is no evidence of calculi, solid focal mass, or hydronephrosis. No perinephric fluid collections are identified. There is no abdominal ascites. Views of the pelvis demonstrate a moderately distended urinary bladder. Bilateral ureteral jets are visualized. No large intraluminal filling defect or calculi are identified. IMPRESSION: 1. Increased cortical echogenicity in the kidneys, likely representing medical renal disease. 2. No evidence of hydronephrosis or solid renal mass. Dictated by: Dictated on workstation # [id number]
== END ==
LOC: RAD 15:15
PROVIDERS: ATTEND Internal Medicine Nephrology
DX: I12.9 Hypertensive chronic kidney disease with stage 1 through stage 4 chronic kidney disease, or unspecified chronic kidney disease (principal); N18.31 Chronic kidney disease, stage 3a; D63.1 Anemia in chronic kidney disease; E10.22 Type 1 diabetes mellitus with diabetic chronic kidney disease
CPT/HCPCS: 76770

== ENCOUNTER 2021-08-05 06:48 | Day surgery (SDC) | payer OTHER ==
[~2021-08-05] VITALS: Ht 171 cm; Wt 90.0 kg
[2021-08-05] MEDS: TETRACAINE 0.5% OPHTH SOLN 4 ML BTL (SINGLE DOSE ONLY) OU PRN ×4 (07:14→07:30)
[2021-08-05] MEDS ORDERED: LIDOCAINE PF 1% 2 ML VIAL IR PRN (07:15)
[2021-08-05] MEDS ORDERED: MOXIFLOXACIN OPHTH SOLN 5 MG/ML 0.3 ML SYRINGE OP ONE (07:15)
[2021-08-05] MEDS ORDERED: POVIDONE (BETADINE) OPHTH SOLN 5% 30 ML OP ONE (07:15)
[2021-08-05] MEDS ORDERED: TIMOLOL MALEATE 0.5% 5 ML (TIMOPTIC) BTL OU PRN (07:15)
[2021-08-05 07:18] VITALS: BP 124/71
[2021-08-05] MEDS: TROPICAMIDE 1% OPH SOLN (MYDRIACYL) 15 ML BTL OP SCH ×3 (07:21→07:31)
[2021-08-05] MEDS: PHENYLEPHRINE 10% OPHTH (NEO-SYN) 5 ML BTL OU SCH ×3 (07:21→07:30)
[2021-08-05] MEDS ORDERED: MIDAZOLAM 2 MG/2 ML (VERSED) VIAL ONE (08:16)
--- NOTE | 2021-08-05 08:20 | Ophthalmologist Pre-Op Note ---
Pre-Operative Progress Note H&P Reviewed The H&P was reviewed, patient examined and no changes noted. Date H&P Reviewed: Aug 05, 2021 Time H&P Reviewed: 08:20 Pre-Op Dx Cataract, Left Eye RANJIT RIGGS MD Aug 05, 2021 08:20
--- NOTE | 2021-08-05 08:41 | Ophthalmology Operative Report ---
Cataract removal/placement IOL PREOPERATIVE DIAGNOSIS: Cataract Left Eye POSTOPERATIVE DIAGNOSIS: Cataract Left Eye PROCEDURE: Cataract removal and placement of posterior chamber implant, left eye SURGEON: Kali Riggs ANESTHESIA: Topical with sedation COMPLICATIONS: None ESTIMATED BLOOD LOSS: Minimal DESCRIPTION OF PROCEDURE: After proper informed consent was obtained, the patient, a 65 female, was taken to the Operating Room and the left eye was anesthetized with tetracaine. The left eye was then prepped and draped in the usual manner. A wire lid speculum was placed. A paracentesis was made at the left hand position. Preservative free lidocaine was injected into the anterior chamber followed by viscoelastic. A clear corneal incision was made in the temporal position. A capsulorrhexis was preformed and the central nuclear and cortical material were removed. The posterior capsule was polished and an Boubacar 18.0 AU00T0 was placed into the capsular bag. The residual viscoelastic was aspirated and balanced saline solution was injected into the anterior chamber. Moxifloxacin was injected into the anterior chamber. The wound was checked and found to be water tight. The patient tolerated the procedure well without complications. KALI RIGGS MD Aug 05, 2021 08:41
[2021-08-05 08:47] VITALS: BP 129/64
--- NOTE | 2021-08-05 10:48 | Anesthesia-General Post-Op ---
MAC Patient Condition Mental Status/LOC: Same as Preop Cardiovascular: Satisfactory Nausea/Vomiting: Absent Respiratory: Satisfactory Pain: Controlled Complications: Absent Post Op Complications Complications None Follow Up Care/Instructions Patient Instructions None needed. Anesthesiology Discharge Order Discharge Order Patient is doing well, no complaints, stable vital signs, no apparent adverse anesthesia problems. No complications reported per nursing. JEFFY HU CRNA Aug 05, 2021 10:48
== END 2021-08-05 08:48 ==
LOC: SDC 06:48
PROVIDERS: ATTEND Specialist
DX: E11.36 Type 2 diabetes mellitus with diabetic cataract (principal); H25.12 Age-related nuclear cataract, left eye; E11.40 Type 2 diabetes mellitus with diabetic neuropathy, unspecified; Z79.899 Other long term (current) drug therapy; Z79.4 Long term (current) use of insulin; Z87.891 Personal history of nicotine dependence
CPT/HCPCS: 66984; V2632

== ENCOUNTER → 2021-08-23 | Outpatient (CLI) | payer OTHER ==
[2021-08-23 17:18] LABS: BASOPHILS # (AUTO) 0.1 10^3/uL (0.0-0.1); BASOPHILS % (AUTO) 1 % (0-10); EOSINOPHILS # (AUTO) 0.2 10^3/uL (0.0-0.3); EOSINOPHILS % (AUTO) 3 % (0-10); HEMATOCRIT 36 % (35-52); HEMOGLOBIN 11.5 g/dL (11.5-16.0); LYMPHOCYTES # (AUTO) 2.2 10^3/uL (1.0-4.0); LYMPHOCYTES % (AUTO) 31 % (12-44); MEAN CORPUSCULAR HEMOGLOBIN 30 pg (25-34); MEAN CORPUSCULAR HGB CONC 32 g/dL (32-36); MEAN CORPUSCULAR VOLUME 93 fL (80-99); MEAN PLATELET VOLUME 9.2 fL (9.0-12.2); MONOCYTES # (AUTO) 0.6 10^3/uL (0.0-1.0); MONOCYTES % (AUTO) 8 % (0-12); NEUTROPHILS # (AUTO) 4.1 10^3/uL (1.8-7.8); NEUTROPHILS % (AUTO) 58 % (42-75); PLATELET COUNT 271 10^3/uL (130-400); WHITE BLOOD COUNT 7.1 10^3/uL (4.3-11.0)
[2021-08-23 17:30] LABS: ALBUMIN 4.1 GM/DL (3.2-4.5); POTASSIUM 4.2 MMOL/L (3.6-5.0)
[2021-08-23 17:32] LABS: CALCIUM 8.9 MG/DL (8.5-10.1)
[2021-08-23 17:36] LABS: CREATININE SERUM 1.24 MG/DL (0.60-1.30); PHOSPHORUS 4.3 MG/DL (2.3-4.7)
[2021-08-23 17:39] LABS: URIC ACID 4.4 MG/DL (2.6-7.2)
== END ==
LOC: LAB 16:31
PROVIDERS: ATTEND Internal Medicine Nephrology
DX: I12.9 Hypertensive chronic kidney disease with stage 1 through stage 4 chronic kidney disease, or unspecified chronic kidney disease (principal); N18.31 Chronic kidney disease, stage 3a; D63.1 Anemia in chronic kidney disease; E10.29 Type 1 diabetes mellitus with other diabetic kidney complication
CPT/HCPCS: 36415; 80069; 82306; 82550; 82607; 82728; 82746; 83540; 83550; 83970; 84155; 84165; 84550; 85025; 86335

== ENCOUNTER → 2022-09-04 | Outpatient (CLI) | payer OTHER ==
[~2022-09-04] MED LIST changes: +ALBU8.5H6 IH; -RT-ALBUINH IH
--- NOTE | 2022-09-04 16:47 | Diagnostic Imaging Report ---
PROCEDURE: US Thyroid. TECHNIQUE: Multiple Real-time grayscale images were obtained of the thyroid in various projections. INDICATION: Hypothyroidism. COMPARISON: None available. FINDINGS: The right lobe of the thyroid gland measures 4.2 x 1.3 x 1.6 cm. The left lobe of the thyroid gland measures 4.6 x 1.3 x 1.5 cm. The thyroid gland demonstrates a significantly heterogeneous echotexture without discrete thyroid nodule. The isthmus is unremarkable. IMPRESSION: No discrete thyroid nodule. Diffuse heterogeneity of the thyroid gland which can be seen secondary to sequelae of prior thyroiditis. Dictated by: Dictated on workstation # [id number]
== END ==
LOC: RAD 14:54
PROVIDERS: ATTEND Nurse Practitioner Family
DX: E03.8 Other specified hypothyroidism (principal); E04.1 Nontoxic single thyroid nodule; R13.19 Other dysphagia; R63.5 Abnormal weight gain; Z76.0 Encounter for issue of repeat prescription; F51.01 Primary insomnia; E78.49 Other hyperlipidemia; K21.9 Gastro-esophageal reflux disease without esophagitis; E11.9 Type 2 diabetes mellitus without complications; N18.30 Chronic kidney disease, stage 3 unspecified
CPT/HCPCS: 76536

== ENCOUNTER 2022-09-16 17:46 | Emergency (ER) | payer OTHER ==
[~2022-09-16] VITALS: Ht 170 cm; Wt 93.0 kg
[2022-09-16] MEDS ORDERED: NS IV 1000 ML 1,000 ML IV SCH (18:00)
--- NOTE | 2022-09-16 18:02 | ED General ---
General Stated Complaint: ACHY, NOT FEELING WELL, DIABETIC Source of Information: Patient History of Present Illness Date Seen by Provider: Sep 16, 2022 Time Seen by Provider: 18:00 Initial Comments PT ARRIVES VIA POV FROM HOME PT STATES SHE HAS NOT FELT WELL SINCE SUNDAY C/O BODY ACHES, AND "JUST DOESN'T FEEL GOOD" C/O NAUSEA, DECREASED APPETITE, HAS NOT EATEN TODAY--HAS HAD POPSICLES AND WATER TODAY HAS VOIDED X 3 TODAY, NO URINARY SYMPTOMS NO BM TODAY, BUT HAD NORMAL BM YESTERDAY NO ABDOMINAL PAIN PT UNAWARE OF FEVER, NO CHILLS C/O NON-PRODUCTIVE COUGH C/O SHORTNESS OF BREATH AND WHEEZING C/O CHEST TIGHTNESS C/O HEADACHE NO ABDOMINAL PAIN PT IS DIABETIC. PT HAS INSULIN PUMP AND CGM--STATES BLOOD SUGARS 120'S TODAY. HAS NOT GIVEN HERSELF ANY EXTRA INSULIN TODAY, BUT HAS CONTINUED WITH INSULIN PUMP TODAY PT HAS MULTIPLE SICK CONTACTS AT WORK AT [employer] PT HAD ROUTINE EXAM WITH DARVIN SORTO AT [facility] ON SUNDAY AND SHE FELT FINE. SHE HAD HER 4TH COVID VACCINE THAT DAY ALL THESE SYMPTOMS BEGAN SUNDAY MORNING SHE WAS NOT TESTED FOR COVID PRIOR TO VACCINE. SHE HAS NOT TAKEN ANYTHING FOR SYMPTOMS. SHE HAS HAD SEASONAL FLU VACCINE. IN ADDITION TO DIABETES, PT HAS STAGE 3 KIDNEY DISEASE, HTN, HYPERLIPIDEMIA. SHE IS A FORMER SMOKER--SMOKED 1/2 PPD, QUIT 1997. NO ALCOHOL OR DRUG USE PCP: [facility] [place] Allergies and Home Medications Allergies Coded Allergies: Sulfa (Sulfonamide Antibiotics) (Verified Allergy, Unknown, 10/01/18) Patient Home Medication List Albuterol Sulfate (Ventolin Hfa) 1 Puff Puff, 2 PUFF IH Q4H PRN for WHEEZING, (Reported) Entered as Reported by: LEIF CASAS on 07/18/21 1048 Atorvastatin Calcium (Atorvastatin Calcium) 40 Mg Tablet, 40 MG PO DAILY, (Reported) Entered as Reported by: JOANA RIVERA on 07/22/21 0814 Black Cohosh (Black Cohosh) 540 Mg Capsule, 540 MG PO BID, (Reported) Entered as Reported by: JOANA RIVERA on 07/22/21 0815 Bupropion HCl (Bupropion Xl) 300 Mg Tab.er.24h, 300 MG PO DAILY, (Reported) Entered as Reported by: TRUDY MAZARIEGOS on 10/08/18 1048 Dapagliflozin Propanediol (Farxiga) 10 Mg Tablet, 10 MG PO DAILY, (Reported) Entered as Reported by: LEIF CASAS on 07/18/21 1048 Gabapentin (Gabapentin) 600 Mg Tablet, 600 MG PO TID, (Reported) Entered as Reported by: LEIF CASAS on 07/18/21 1048 Insulin Lispro (Humalog) 100 Unit/1 Ml Vial, 0 SQ for insulin pump, (Reported) Entered as Reported by: LEIF CASAS on 10/02/18 0856 Levothyroxine Sodium (Levothyroxine Sodium) 100 Mcg Tablet, 100 MCG PO BID, (Reported) Entered as Reported by: JOANA RIVERA on 07/22/21 0813 Losartan/Hydrochlorothiazide (Losartan-Hctz 50-12.5 mg Tab) 1 Each Tablet, 1 EACH PO DAILY, (Reported) Entered as Reported by: JOANA RIVERA on 07/22/21 0813 Metformin HCl (Metformin HCl) 1,000 Mg Tablet, 1,000 MG PO BID, (Reported) Entered as Reported by: JOANA RIVERA on 07/22/21 0814 Multivitamin (Multi-Vitamin Daily) 1 Each Tablet, 1 EACH PO DAILY, (Reported) Entered as Reported by: JOANA RIVERA on 07/22/21 0814 Spironolactone (Spironolactone) 25 Mg Tablet, 25 MG PO DAILY, (Reported) Entered as Reported by: LEIF CASAS on 10/02/18 0856 Zolpidem Tartrate (Ambien) 5 Mg Tablet, 5 MG PO HS, (Reported) Entered as Reported by: LEIF CASAS on 07/18/21 1048 Review of Systems Review of Systems Constitutional: see HPI, malaise, weakness EENTM: no symptoms reported Respiratory: see HPI, cough, short of breath, wheezing Cardiovascular: see HPI, chest pain Gastrointestinal: see HPI; No abdominal pain, No constipation, No diarrhea; loss of appetite, nausea; No vomiting Genitourinary: no symptoms reported Musculoskeletal: see HPI (BODY ACHES) Skin: no symptoms reported Psychiatric/Neurological: See HPI, Headache Hematologic/Lymphatic: No Symptoms Reported Immunological/Allergic: no symptoms reported Past [id number] Hx Patient Social History Tobacco Use?: Yes Tobacco type used: Cigarettes Smoking Status: Former Smoker Smokeless Tobacco Frequency: Never a User Use of E-Cig and/or Vaping Champ: Never a User Substance use?: No Alcohol Use?: No Immunizations Up To Date Tetanus Booster (TDap): Unknown PED Vaccines UTD: No Seasonal Allergies Seasonal Allergies: No Past Medical History Surgeries: Yes (umb hernia, clavicle, knee scope) Hysterectomy, Joint Replacement, Oophorectomy, Orthopedic Respiratory: No Currently Using CPAP: No Currently Using BIPAP: No Cardiac: Yes High Cholesterol, Hypertension Neurological: No Reproductive Disorders: Yes Female Reproductive Disorders: Menstrual Problems 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: Hysterectomy, Menopausal Sexually Transmitted Disease: No HIV/AIDS: No Genitourinary: Yes Renal Failure Gastrointestinal: No Musculoskeletal: Yes Arthritis, Fractures Endocrine: Yes Diabetes, Insulin dep, Hypothyroidsim HEENT: Yes Cataract Loss of Vision: Denies Hearing Impairment: Denies Cancer: No Psychosocial: No Integumentary: No Blood Disorders: No Adverse Reaction/Blood Tranf: No Family Medical History Degenerative disc disease G8 BROTHER, Onset:60 years & older FHx: rheumatoid arthritis G8 BROTHER, Onset:60 years & older Lymphedema 19 FATHER, , Age:88, Onset:60 years & older SOCIAL HISTORY: -SMOKED 1/2 PPD, QUIT 1997 -ETOH--DENIES USE -DRUGS--DENIES USE PAST SURGICAL HISTORY: -LEFT CLAVICLE FX/ORIF -BILATERAL TOTAL KNEE REPLACEMENTS - Physical Exam Vital Signs Vital Signs - First Documented 09/16/22 17:52 Temp 37.4 Pulse 79 Resp 20 B/P (MAP) 143/72 (95) Pulse Ox 91 O2 Delivery Room Air O2 Flow Rate 2.00 Capillary Refill : Height, Weight, BMI Height: 5'7.00" Weight: 194lbs. 0.0oz. 87.444650eg; 30.4 BMI Method:Stated Focused Exam Lactate Level 09/16/22 18:05: Lactic Acid Level 0.63 Lactic Acid Level Laboratory Tests Test 09/16/22 18:05 Lactic Acid Level 0.63 MMOL/L (0.50-2.00) Progress/Results/Core Measures Suspected Sepsis SIRS Temperature: Pulse: Respiratory Rate: Laboratory Tests 09/16/22 18:05: White Blood Count 6.5 Blood Pressure / Mean: 09/16/22 18:05: Lactic Acid Level 0.63 Laboratory Tests 09/16/22 18:05: Creatinine 1.20, INR Comment 1.0, Platelet Count 201, Total Bilirubin 0.4 Results/Orders Lab Results Laboratory Tests Test 09/16/22 18:05 09/16/22 18:25 09/16/22 18:26 09/16/22 18:42 Range/Units White Blood Count 6.5 4.3-11.0 10^3/uL Red Blood Count 3.74 L 3.80-5.11 10^6/uL Hemoglobin 11.2 L 11.5-16.0 g/dL Hematocrit 35 35-52 % Mean Corpuscular Volume 93 80-99 fL Mean Corpuscular Hemoglobin 30 25-34 pg Mean Corpuscular Hemoglobin Concent 32 32-36 g/dL Red Cell Distribution Width 13.2 10.0-14.5 % Platelet Count 201 130-400 10^3/uL Mean Platelet Volume 9.2 9.0-12.2 fL Immature Granulocyte % (Auto) 0 % Neutrophils (%) (Auto) 71 42-75 % Lymphocytes (%) (Auto) 15 12-44 % Monocytes (%) (Auto) 9 0-12 % Eosinophils (%) (Auto) 3 0-10 % Basophils (%) (Auto) 1 0-10 % Neutrophils # (Auto) 4.6 1.8-7.8 10^3/uL Lymphocytes # (Auto) 1.0 1.0-4.0 10^3/uL Monocytes # (Auto) 0.6 0.0-1.0 10^3/uL Eosinophils # (Auto) 0.2 0.0-0.3 10^3/uL Basophils # (Auto) 0.0 0.0-0.1 10^3/uL Immature Granulocyte # (Auto) 0.0 0.0-0.1 10^3/uL Prothrombin Time 13.1 12.2-14.7 SEC INR Comment 1.0 0.8-1.4 Activated Partial Thromboplast Time 33 24-35 SEC Sodium Level 140 135-145 MMOL/L Potassium Level 4.7 3.6-5.0 MMOL/L Chloride Level 109 H 98-107 MMOL/L Carbon Dioxide Level 19 L 21-32 MMOL/L Anion Gap 12 5-14 MMOL/L Blood Urea Nitrogen 19 H 7-18 MG/DL Creatinine 1.20 0.60-1.30 MG/DL Estimat Glomerular Filtration Rate 50 BUN/Creatinine Ratio 16 Glucose Level 133 H 70-105 MG/DL Lactic Acid Level 0.63 0.50-2.00 MMOL/L Calcium Level 8.8 8.5-10.1 MG/DL Corrected Calcium 9.0 8.5-10.1 MG/DL Magnesium Level 2.2 1.6-2.4 MG/DL Total Bilirubin 0.4 0.1-1.0 MG/DL Aspartate Amino Transf (AST/SGOT) 19 5-34 U/L Alanine Aminotransferase (ALT/SGPT) 21 0-55 U/L Alkaline Phosphatase 115 40-136 U/L Total Protein 6.3 L 6.4-8.2 GM/DL Albumin 3.8 3.2-4.5 GM/DL Influenza Type A (RT-PCR) Not Detected Not Detecte Influenza Type B (RT-PCR) Not Detected Not Detecte SARS-CoV-2 RNA (RT-PCR) Not Detected Not Detecte Glucometer 120 H 70-110 MG/DL Urine Color YELLOW Urine Clarity CLEAR Urine pH 5.5 5-9 Urine Specific [place] 1.020 1.016-1.022 Urine Protein NEGATIVE NEGATIVE Urine Glucose (UA) 3+ H NEGATIVE Urine Ketones 1+ H NEGATIVE Urine Nitrite NEGATIVE NEGATIVE Urine Bilirubin NEGATIVE NEGATIVE Urine Urobilinogen 0.2 < = 1.0 MG/DL Urine Leukocyte Esterase NEGATIVE NEGATIVE Urine RBC (Auto) NEGATIVE NEGATIVE Urine RBC RARE /HPF Urine WBC NONE /HPF Urine Squamous Epithelial Cells RARE /HPF Urine Crystals NONE /LPF Urine Bacteria NEGATIVE /HPF Urine Casts NONE /LPF Urine Mucus NEGATIVE /LPF Urine Culture Indicated CULTURE PENDING My Orders Orders - DI DARNELL DO Ed Iv/Invasive Line Start (09/16/22 17:57) Monitor-Rhythm Ecg Trace Only (09/16/22 17:57) Cbc With Automated Diff (09/16/22 17:57) Comprehensive Metabolic Panel (09/16/22 17:57) Magnesium (09/16/22 17:57) Ua Culture If Indicated (09/16/22 17:57) Covid 19 Inhouse Test (09/16/22 17:57) Chest 1 View, Ap/Pa Only (09/16/22 17:57) Influenza A And B By Pcr (09/16/22 17:57) Isolation Central Supply Req (09/16/22 17:57) Blood Culture (09/16/22 17:57) Urine Culture (09/16/22 17:57) Protime With Inr (09/16/22 17:57) Partial Thromboplastin Time (09/16/22 17:57) Ed Iv/Invasive Line Start (09/16/22 17:57) Vital Signs Adult Sepsis Patie Q15M (09/16/22 17:57) Remove Rings In Anticipation O (09/16/22 17:57) Lactic Acid Analyzer (09/16/22 17:57) Ed Iv/Invasive Line Start (09/16/22 17:57) Ns Iv 1000 Ml (Sodium Chloride 0.9%) (09/16/22 18:00) Accucheck Stat ONCE (09/16/22 17:57) Ekg Tracing (09/16/22 18:23) Vital Signs/I&O 09/16/22 17:52 Temp 37.4 Pulse 79 Resp 20 B/P (MAP) 143/72 (95) Pulse Ox 91 O2 Delivery Room Air O2 Flow Rate 2.00 Capillary Refill : Diagnostic Imaging Comments CXR--PER RADIOLOGIST REPORT AT 1845 FINDINGS: Prominence of the mediastinum at the level of the aortic knob, unchanged from prior, either atelectatic or tortuous. No acute abnormality or interval change is found. The lungs are clear. No failure, effusion or pneumothorax. IMPRESSION: Stable chest with prominence of the superior mediastinum at the level of the aortic knob reflecting its tortuosity and/or ectasia. No acute finding or change or adverse change demonstrated. Departure Impression Primary Impression: SIDE EFFECTS OF COVID VACCINE Disposition: 01 HOME, SELF-CARE Condition: Stable Departure-Patient Inst. Decision time for Depature: 19:35 Referrals: ADRIAN SORTO APRN (PCP/Family) Primary Care Physician Patient Instructions: COVID-19 Vaccines Add. Discharge Instructions: HOME, REST LOTS OF CLEAR LIQUIDS--WATER, BROTH, JELLO, GATORADE, POPSICLES, CLEAR JUICES BRATS DIET--BANANAS, RICE, APPLESAUCE, TOAST, SALTINES TYLENOL AND MOTRIN NEEDED FOR PAIN OR FEVER CONTINUE YOUR REGULAR MEDICATIONS PRESCRIBED USE YOUR HOME INHALER NEEDED FOLLOW UP WITH YOUR DR IN 2-3 DAYS IF NO BETTER, RETURN TO ER IF WORSE Scripts Ondansetron (Ondansetron Odt) 4 Mg Tab.rapdis 4 MG PO Q4H for Nausea/Vomiting, #10 TAB Prov: DI DARNELL DO 09/16/22 DI DARNELL DO Sep 16, 2022 18:02
[2022-09-16 18:16] LABS: BASOPHILS % (AUTO) 1 % (0-10); EOSINOPHILS # (AUTO) 0.2 10^3/uL (0.0-0.3); EOSINOPHILS % (AUTO) 3 % (0-10); HEMATOCRIT 35 % (35-52); HEMOGLOBIN 11.2 g/dL (11.5-16.0); LYMPHOCYTES % (AUTO) 15 % (12-44); MEAN CORPUSCULAR HEMOGLOBIN 30 pg (25-34); MEAN CORPUSCULAR HGB CONC 32 g/dL (32-36); MEAN CORPUSCULAR VOLUME 93 fL (80-99); MEAN PLATELET VOLUME 9.2 fL (9.0-12.2); MONOCYTES # (AUTO) 0.6 10^3/uL (0.0-1.0); MONOCYTES % (AUTO) 9 % (0-12); NEUTROPHILS # (AUTO) 4.6 10^3/uL (1.8-7.8); NEUTROPHILS % (AUTO) 71 % (42-75); PLATELET COUNT 201 10^3/uL (130-400); WHITE BLOOD COUNT 6.5 10^3/uL (4.3-11.0)
[2022-09-16 18:28] LABS: ALBUMIN 3.8 GM/DL (3.2-4.5)
[2022-09-16 18:29] LABS: POTASSIUM 4.7 MMOL/L (3.6-5.0)
[2022-09-16 18:30] LABS: CALCIUM 8.8 MG/DL (8.5-10.1); PROTHROMBIN TIME PATIENT 13.1 SEC (12.2-14.7)
[2022-09-16 18:31] LABS: TOTAL PROTEIN 6.3 GM/DL (6.4-8.2)
[2022-09-16 18:33] LABS: BILIRUBIN,TOTAL 0.4 MG/DL (0.1-1.0)
[2022-09-16 18:35] LABS: CREATININE SERUM 1.2 MG/DL (0.60-1.30)
[2022-09-16 18:38] LABS: MAGNESIUM 2.2 MG/DL (1.6-2.4)
--- NOTE | 2022-09-16 18:43 | Diagnostic Imaging Report ---
INDICATION: Pain and fever. COMPARISON: Study of 12/29/2017. FINDINGS: Prominence of the mediastinum at the level of the aortic knob, unchanged from prior, either atelectatic or tortuous. No acute abnormality or interval change is found. The lungs are clear. No failure, effusion or pneumothorax. IMPRESSION: Stable chest with prominence of the superior mediastinum at the level of the aortic knob reflecting its tortuosity and/or ectasia. No acute finding or change or adverse change demonstrated. Dictated by: Dictated on workstation # [id number]
[2022-09-16 18:56] LABS: BILIRUBIN,URINE NEGATIVE (NEGATIVE); CLARITY,URINE CLEAR; COLOR,URINE YELLOW; GLUCOSE, URINE (UA) 3+ (NEGATIVE); KETONES,URINE 1+ (NEGATIVE); LEUKOCYTE ESTERASE ,URINE NEGATIVE (NEGATIVE); NITRITE,URINE NEGATIVE (NEGATIVE); PH,URINE 5.5 (5-9); PROTEIN,URINE NEGATIVE (NEGATIVE)
[2022-09-16 19:04] LABS: BACTERIA,URINE NEGATIVE /HPF; RBC,URINE RARE /HPF; SQUAMOUS EPITHELIAL CELL,UR RARE /HPF
[2022-09-16] MEDS ORDERED: RX-ONDANSETRON 4 MG ODT (ZOFRAN) PPK #4 PO STA (19:38)
[2022-09-16] MEDS ORDERED: ONDA4TAB11 PO (19:41)
[2022-09-16] MEDS ORDERED: ONDANSETRON 4 MG/2 ML (SDV) Z0FRAN IVP ONE (19:45)
[2022-09-16 19:53] VITALS: BP 164/76
== END 2022-09-16 19:53 | disposition home or self-care (01) ==
LOC: EDUNIT# 17:46 → ER 17:47
DX: M79.10 Myalgia, unspecified site (principal); R07.89 Other chest pain; R06.02 Shortness of breath; R06.2 Wheezing; R51.9 Headache, unspecified; R05.9 Cough, unspecified; R11.0 Nausea; R63.0 Anorexia; T50.B95A Adverse effect of other viral vaccines, initial encounter; E11.22 Type 2 diabetes mellitus with diabetic chronic kidney disease; I12.9 Hypertensive chronic kidney disease with stage 1 through stage 4 chronic kidney disease, or unspecified chronic kidney disease; N18.30 Chronic kidney disease, stage 3 unspecified; Z87.891 Personal history of nicotine dependence; Z79.4 Long term (current) use of insulin; Z96.41 Presence of insulin pump (external) (internal); Z20.822 Contact with and (suspected) exposure to COVID-19
CPT/HCPCS: 36415; 71045; 80053; 81000; 82947; 83605; 83735; 85025; 85610; 85730; 87040; 87088; 87636; 93005; 93041